=== PATIENT | male | born 1945 | race Caucasian/White ===

== ENCOUNTER 2018-07-05 08:11 | Inpatient (IN) ==
[2018-07-05] MEDS ORDERED: ATIVAN IV ONE (08:31)
[2018-07-05] MEDS ORDERED: LR 1,000 ML IV ONE (08:32)
--- NOTE | 2018-07-05 08:35 | EKG Report ---
Test Performed on : 07/05/2018 08:22:10 AM Test Reason : AMS Blood Pressure : / mmHG Vent. Rate : 130 BPM Atrial Rate : 131 BPM P-R Int : 000 ms QRS Dur : 078 ms QT Int : 308 ms P-R-T Axes : 000 053 046 degrees QTc Int : 453 ms Accelerated Junctional rhythm. ST & T wave abnormality, consider inferior ischemia Abnormal ECG When compared with ECG of 15-DEC-2017 14:02, Junctional rhythm. has replaced Sinus rhythm. Vent. rate has increased BY 59 BPM Non-specific change in ST segment in Inferior leads T wave inversion now evident in Inferior leads Nonspecific T wave abnormality now evident in Lateral leads Unconfirmed Result
--- NOTE | 2018-07-05 08:41 | PROVIDER DOCUMENTATION ---
[facility] Abuse/Overdose - General Chief Complaint: Seizure Stated Complaint: SEIZURE/ DT Time Seen by Provider: 07/05/18 08:16 Source: patient, family, EMS Allergies/Adverse Reactions: Allergies Allergy/AdvReac Type Severity Reaction Status Date / Time No Known Allergies Allergy Verified 07/05/18 09:18 Home Medications: Home Medication List Medication Instructions Recorded Confirmed Last Taken Type LISINOpril [Prinivil] 40 mg PO DAILY 01/28/17 07/05/18 05/10/17 21:00 History Metoprolol Succinate [Toprol Xl] 50 mg PO QAM 01/28/17 07/05/18 05/10/17 21:00 History Citalopram [Celexa] 20 mg PO DAILY 05/05/17 07/05/18 05/10/17 21:00 History Clopidogrel Bisulfate [Plavix] 1 tab PO DAILY 07/05/18 07/05/18 Unknown History Prednisone 1 tab PO DIRECTED 07/05/18 07/05/18 Unknown History Simvastatin 1 tab PO DAILY 07/05/18 07/05/18 Unknown History - History of Present Illness-Drug/Alcohol Nature of Presenting Problem: 74 YO MALE. PTT'S AND SON TELL ME PT HAD TONIC STIFFENING LASTING 1-2 MIN ABOUT 30 MIN AGO. LAST ETOH YESTERDAY MORING. HAS WHISKEY AVAILABLE . SAYS 50H ANIVERSERY TO BE CELEBRATED SAT AND SHE DID NOT WANT HIM DRUNK ON THAT DAY AND PT HAS STOPPED DRINKING. SHAKEY AND WEAK AND TREMORS YESTERDAY. MAY HAVE HAD SINGLE SEIZURE LIKE ACTIVITY 1 YR AGO. DRINKS DAILOY FOR MANY YEARS AND FEELS HE DOES NOT HAVE A PROBLEM. COUGHING 1-2 DAYS. PAST HX INCLUDES HTN. PAST , 30 YEARS AGO, SQAMOOUS CELL ON LEFT TONSIL W/ SURGICAL RESECTION LEFT MANDIBLE , RADIATION AND REQUIRED LEFT CAROTID STINTING , NO HX CVA OR IA. Psychiatric Complaints: reports: denies symptoms, confused. denies: agitated Associated Symptoms: reports: cough. denies: chest pain Any injuries associated with this episode of intoxication?: No Similar Symptoms Previously?: Yes (IWFE AND SON REPORT SINGE SEIZURE LIKE STIFFENING THIS MORING LESS THN 30M) - Substance Abuse Substance Use: reports: none/never Duration of Abuse? (years): 20 - Alcohol Abuse Type and amount of last drink?: WHISKEY LAST 36 HR AGO Usually drinks:: daily Other alcohols?: reports: N/A - Detox/Hospitalizations Currently enrolled in a Methadone Program?: No Review of Systems - Adult - REVIEW OF SYSTEMS - ADULT Constitutional: reports: see clarissa THAPA Eyes: reports: no symptoms reported Ears, Nose, Mouth & Throat: reports: no symptoms reported Cardiovascular: reports: no symptoms reported Respiratory: reports: cough. denies: wheezing Gastrointestinal: reports: poor appetite Genitourinary: reports: no symptoms reported Musculoskeletal: reports: no symptoms reported Integumentary: reports: no symptoms reported Neurological: reports: no symptoms reported Psychiatric: reports: no symptoms reported Endocrine: reports: no symptoms reported Hematologic/Lymphatic: reports: no symptoms reported Allergic/Immunologic: reports: no symptoms reported All Other Systems: Reviewed and Negative Past History - Adult - PAST MEDICAL HISTORY-ADULT Review of Records: reports: Old Records Reviewed Major Childhood Illnesses: reports: denies history Cardiovascular: reports: HTN. denies: CAD, IA Respiratory: reports: denies history Gastrointestinal: reports: denies history Obstetrical/Gynecological: reports: denies history Genitourinary: reports: denies history Musculoskeletal: reports: denies history Neurological: reports: TIA Endocrine/Immune: reports: denies history Other Conditions: reports: denies history - PRIOR SURGERIES/PROCEDURES Surgical/Procedure History: reports: reviewed, not pertinent - IMMUNIZATION STATUS Childhood Immunizations: See Nurse Assessment Flu Vaccine: See Nurse Assessment - FAMILY HISTORY Family History: reviewed, not pertinent - SOCIAL HISTORY Smoking: denies Substance Use: none/never Alcohol Use Frequency: every day Living Situation: family Physical Exam-General - PHYSICAL EXAM-ADULT Initial Vital Signs Reviewed: Yes - CONSTITUTIONAL General Appearance: mild distress, anxious - EYES Eyes: PERRL/EOMI, pink conjunctivae - HEAD, EARS, NOSE, MOUTH & THROAT HENMT: moist mucous membranes, other (LARGE SURGICAL DEFORMITY LEFT MANDIBLE AND UPPER NECK) - NECK Neck: other - RESPIRATORY Respiratory: rales (RALES AND RHONCHI R CHEST > LEFT) - CARDIOVASCULAR Cardiovascular: regular rate, rhythm, no edema, no gallop, no JVD - GASTROINTESTINAL (ABDOMEN) Abdominal Exam: non tender, soft, no organomegaly, other (SURGICAL SCARS LOWER ABD FROM HERNIA REPAIRS) - MUSCULOSKELETAL Extremity: normal range of motion, non-tender, normal gait - SKIN Integumentary: normal color, normal turgor, warm/dry - NEUROLOGIC Neurologic: sheep boner II-XII nml as tested, grossly normal, no motor/sensory deficits , abnormal cerebellar tests, other (TREMORS AND FIGITS, NO FOCAL WEAKNESS). negative: facial droop, focal weakness, motor weakness - PSYCHIATRIC Psych/Mental Status: normal mood/affect (ORIENTED TO PERSON AND PLACE BUT NOT TIME, NO SLURRED SPEECH.), other Progress - PLAN OF CARE/RESULTS Progress/Plan/Lab Results: Vital Signs - 8 hr 07/05/18 08:21 07/05/18 08:24 07/05/18 08:30 Temperature 97.4 F L Pulse Rate 125 H 135 H 128 H Respiratory Rate 23 17 19 Blood Pressure 128/89 O2 Sat by Pulse Oximetry 94 L 07/05/18 08:32 07/05/18 09:02 07/05/18 09:32 Temperature Pulse Rate 126 H 110 H 115 H Respiratory Rate 20 20 20 Blood Pressure 159/110 159/108 159/112 O2 Sat by Pulse Oximetry 94 L 96 96 07/05/18 10:02 07/05/18 10:32 Temperature Pulse Rate 109 H 105 H Respiratory Rate 18 18 Blood Pressure 157/110 146/103 O2 Sat by Pulse Oximetry 95 97 07/05/18 09:08 Influenza Screen - Final Nasopharyngeal Laboratory Results - last 24 hr 07/05/18 07/05/18 07/05/18 08:20 08:20 08:20 WBC RBC Hgb Hct MCV MCH MCHC RDW Std Deviation Plt Count MPV Immature Gran % (Auto) Neut % (Auto) Lymph % (Auto) Free[place] % (Auto) Eos % (Auto) Baso % (Auto) Immature Gran # (Auto) Neut # (Auto) Lymph # (Auto) Free[place] # (Auto) Eos # (Auto) Baso # (Auto) PT 12.9 INR 0.90 PTT (Actin FS) 27.6 Specimen Type Sample Site pH pCO2 pO2 HCO3 Base Excess Oxyhemoglobin ABG O2 Sat (Calculated) ABG O2 Saturation ABG Carboxyhemoglobin ABG Methemoglobin Toby Test A-a O2 Difference Total Hemoglobin Lactate Blood Gas Modality FiO2 % Sodium 126 L Potassium 4.0 Chloride 86 L Carbon Dioxide 19 L Anion Gap 21 BUN 11 Creatinine 1.1 Estimated GFR/1.73 m2 > 60 BUN/Creatinine Ratio 10 Glucose 153 H Calculated Osmolality 256 Calcium 10.1 Magnesium 1.6 Total Bilirubin 1.53 H AST 39 H ALT 13 Alkaline Phosphatase 117 Ammonia Creatine Kinase Creatine Kinase Index CK-MB (CK-2) Troponin T Total Protein 6.9 Albumin 4.1 Globulin 2.8 Albumin/Globulin Ratio 1.5 Plasma Lactate Plasma/Serum Ethyl Alc 07/05/18 07/05/18 07/05/18 08:20 08:20 08:20 WBC 11.33 H RBC 3.69 L Hgb 12.1 L Hct 35.1 L MCV 95.1 MCH 32.8 H MCHC 34.5 RDW Std Deviation 13.5 Plt Count 254 MPV 8.9 Immature Gran % (Auto) 0.4 Neut % (Auto) 73.0 Lymph % (Auto) 15.3 L Free[place] % (Auto) 11.3 H Eos % (Auto) 0.0 Baso % (Auto) 0.0 Immature Gran # (Auto) 0.04 Neut # (Auto) 8.28 H Lymph # (Auto) 1.73 Freeborn # (Auto) 1.28 H Eos # (Auto) 0.00 Baso # (Auto) 0.00 PT INR PTT (Actin FS) Specimen Type Sample Site pH pCO2 pO2 HCO3 Base Excess Oxyhemoglobin ABG O2 Sat (Calculated) ABG O2 Saturation ABG Carboxyhemoglobin ABG Methemoglobin Toby Test A-a O2 Difference Total Hemoglobin Lactate Blood Gas Modality FiO2 % Sodium Potassium Chloride Carbon Dioxide Anion Gap BUN Creatinine Estimated GFR/1.73 m2 BUN/Creatinine Ratio Glucose Calculated Osmolality Calcium Magnesium Total Bilirubin AST ALT Alkaline Phosphatase Ammonia Creatine Kinase Creatine Kinase Index CK-MB (CK-2) Troponin T < 0.010 Total Protein Albumin Globulin Albumin/Globulin Ratio Plasma Lactate Plasma/Serum Ethyl Alc 07/05/18 07/05/18 07/05/18 08:20 08:59 09:05 WBC RBC Hgb Hct MCV MCH MCHC RDW Std Deviation Plt Count MPV Immature Gran % (Auto) Neut % (Auto) Lymph % (Auto) Freeborn % (Auto) Eos % (Auto) Baso % (Auto) Immature Gran # (Auto) Neut # (Auto) Lymph # (Auto) Freeborn # (Auto) Eos # (Auto) Baso # (Auto) PT INR PTT (Actin FS) Specimen Type ARTERIAL Sample Site R RADIAL pH 7.44 pCO2 32 L pO2 79 HCO3 23.4 Base Excess -1.8 Oxyhemoglobin 93.5 L ABG O2 Sat (Calculated) 15.5 ABG O2 Saturation 97.1 ABG Carboxyhemoglobin 2.00 ABG Methemoglobin 1.7 H Toby Test YES A-a O2 Difference 31.0 Total Hemoglobin 11.7 Lactate 3.80 H Blood Gas Modality ROOM AIR FiO2 % 21.0 Sodium Potassium Chloride Carbon Dioxide Anion Gap BUN Creatinine Estimated GFR/1.73 m2 BUN/Creatinine Ratio Glucose Calculated Osmolality Calcium Magnesium Total Bilirubin AST ALT Alkaline Phosphatase Ammonia 21 Creatine Kinase 415 H Creatine Kinase Index 1.7 CK-MB (CK-2) 7.12 H Troponin T Total Protein Albumin Globulin Albumin/Globulin Ratio Plasma Lactate Plasma/Serum Ethyl Alc 07/05/18 09:05 WBC RBC Hgb Hct MCV MCH MCHC RDW Std Deviation Plt Count MPV Immature Gran % (Auto) Neut % (Auto) Lymph % (Auto) Free[place] % (Auto) Eos % (Auto) Baso % (Auto) Immature Gran # (Auto) Neut # (Auto) Lymph # (Auto) Free[place] # (Auto) Eos # (Auto) Baso # (Auto) PT INR PTT (Actin FS) Specimen Type Sample Site pH pCO2 pO2 HCO3 Base Excess Oxyhemoglobin ABG O2 Sat (Calculated) ABG O2 Saturation ABG Carboxyhemoglobin ABG Methemoglobin Toby Test A-a O2 Difference Total Hemoglobin Lactate Blood Gas Modality FiO2 % Sodium Potassium Chloride Carbon Dioxide Anion Gap BUN Creatinine Estimated GFR/1.73 m2 BUN/Creatinine Ratio Glucose Calculated Osmolality Calcium Magnesium Total Bilirubin AST ALT Alkaline Phosphatase Ammonia Creatine Kinase Creatine Kinase Index CK-MB (CK-2) Troponin T Total Protein Albumin Globulin Albumin/Globulin Ratio Plasma Lactate 3.9 H Plasma/Serum Ethyl Alc Orders Category Date Time Status Cardiac Monitoring DIRECTED Care 07/05/18 08:28 Active Finger Stick Blood Sugar (ED) DIRECTED Care 07/05/18 08:27 Active IV Insertion ORDERED Care 07/05/18 09:36 Completed Notify MD of + Sepsis Screen NOW Care 07/05/18 09:36 Active Notify Physician As Ordered Care 07/05/18 09:36 Active Saline Loc NOW Care 07/05/18 08:27 Active CHEST-PORTABLE [RAD] Stat Exams 07/05/18 08:[address] HEAD W/O CONTRAST [CT] Stat Exams 07/05/18 08:31 Ordered ABG [RESP] Routine Lab 07/05/18 08:59 Completed ALCOHOL BLOOD Stat Lab 07/05/18 08:20 Completed AMMONIA [CHEM] Stat Lab 07/05/18 09:05 Completed BLOOD CULTURE [BLDCUL] Stat Lab 07/05/18 09:05 Results CBC WITH DIFF [HEME] Stat Lab 07/05/18 08:20 Completed CK PROFILE [SP CHEM] Stat Lab 07/05/18 08:20 Completed COMPREHENSIVE METABOLIC PANEL [CHEM] Stat Lab 07/05/18 08:20 Completed INFLUENZA SCREEN A/B Stat Lab 07/05/18 09:08 Completed LACTATE, PLASMA [CHEM] Lab 07/05/18 12:05 Uncollected LACTATE, PLASMA [CHEM] Stat Lab 07/05/18 09:05 Completed MAGNESIUM [CHEM] Stat Lab 07/05/18 08:20 Completed PROTIME WITH INR [COAG] Stat Lab 07/05/18 08:20 Completed PTT [COAG] Stat Lab 07/05/18 08:20 Completed TROPONIN T Stat Lab 07/05/18 08:20 Completed URINALYSIS W/POSS RFLX CULT [URINALYSIS] Stat Lab 07/05/18 08:30 Uncollected URINE DRUG SCREEN Stat Lab 07/05/18 08:30 Uncollected 0.9% Sodium Chloride Inj [Ns] 1,000 ml Med 07/05/18 09:38 Discontinued IV 999 mls/hr CefTRIAXONE [Rocephin] 1 gm Med 07/05/18 10:25 Discontinued 0.9% Sodium Chloride Inj [Ns] 50 ml IV NOW Chlordiazepoxide [Librium] Med 07/05/18 11:03 Discontinued 10 mg PO NOW ONE Lactated Ringers Inj [Lr] 1,000 ml Med 07/05/18 08:32 Discontinued IV 999 mls/hr Lorazepam [Ativan] Med 07/05/18 08:31 Discontinued 2 mg IV NOW ONE Vancomycin 1 gm/Ns Med 07/05/18 11:02 Active 1 gm in 250 ml IV NOW Oxygen Device Stat Oth 07/05/18 09:36 Active EKG [EKG] Stat Ther 07/05/18 08:29 Draft Result Diagrams: 07/05/18 08:20 07/05/18 08:20 - REASSESSMENT Reassessment #1 Time Reassessed: 11:16 Status: improving (SEPSIS REASSESS: AWAKE , O X 3 , JUST VOIDED, WANTS COKE TO DRINK, HR 113, BP152/) - EKG 1 Time of EKG reading by physician:: 08:26 EKG Read and Signed by:: Sheldon Paz EKG Interpretation (*Must complete 3 of following elements*): Abnormal Rate: 130 [place]: normal QRS: normal MN Interval: prolonged ST Wave: non-specific ST changes Comments: SINUS TACH V ACCELERATED JUNCTIONAL SRYTHM, NONSPECFIC ST-T CHANGES - CONSULTS/PCP/HOSPITALIST Notification #1 *Consult/PCP/Hospitalist*: IBRAHIMA ACCEPTS TO ICU FOR DR HALL Time Discussed: 11:50 Consult Disposition: Admit (ADD VANC: ICU) Departure - Departure Date of Disposition Decision: 07/05/18 Time of Disposition Decision: 11:04 DIAGNOSIS: Chronic alcohol dependence, continuous, Seizure due to alcohol withdrawal, Pneumonia, Sepsis Disposition: ADMITTED INPATIENT 09 Certified Medical Emergency: Emergent Condition: Fair Referrals and Follow-Ups: Brandon Nieto MD [Primary Care Provider] - - Critical Care Note This patient required my direct & personal management of CC.: Yes Total Time (mins): 25 Critical Care Statement: This patient required my direct personal management to treat or rule out processes, the absence of which, could potentiallly result in sudden, clinically significant life or limb threatening deterioration. Attestation - Physician/ EVAN Attestation Patient care was provided by Advanced Practice Provider:: No The physician spent face to face time with patient:: Yes Advanced Practice Provider documentation review:: Supervising physician onsite and consulted in the evaluation and care of this patient. The physician did have a face to face encounter with the patient.
[2018-07-05 08:50] LABS: INR 0.9; PROTIME 12.9 Seconds (11.0-16.0)
[2018-07-05 08:51] LABS: PTT 27.6 Seconds (22.3-41.8)
[2018-07-05 09:00] LABS: ESTIMATED GFR > 60
[2018-07-05 09:08] LABS: ALLEN TEST YES; BE -1.8 mmoll (-3.0-3.0); BLOOD TYPE ARTERIAL; HCO3-(ACT) 23.4 mmoll (20.0-26.0); METHB 1.7 % (0.0-1.5); O2(CT) 15.5 mL/dL (15.0-23.0); O2HB 93.5 % (95.0-99.0); PCO2(98.6) 32 mmHg (35-45); PO2(98.6) 79 mmHg (60-100); SAMPLE BLOOD; SAO2 97.1 % (95.0-100.0); THB 11.7 g/dL (11.5-17.4); pH(98.6) 7.44 (7.35-7.45)
[2018-07-05 09:09] LABS: MODALITY ROOM AIR
[2018-07-05 09:10] LABS: AGAP 21; ALB/GLOB RATIO 1.5; ALBUMIN 4.1 g/dL (3.5-5.0); ALKALINE PHOSPHATASE 117 U/L (32-122); BUN 11 mg/dL (8-22); CALCIUM 10.1 mg/dL (8.8-10.2); CHLORIDE 86 mmol/L (98-107); COSMO 256; CREATININE 1.1 mg/dL (0.7-1.2); GLUCOSE 153 mg/dL (70-104); GOT 39 U/L (10-34); GPT 13 U/L (10-44); SODIUM 126 mmol/L (136-145); TCO2 19 mmol/L (25-35); TOTAL BILIRUBIN 1.53 mg/dL (0.20-1.00); TOTAL PROTEIN 6.9 g/dL (6.3-8.3)
[2018-07-05] MEDS ORDERED: NS 1,000 ML IV ONE (09:38)
[2018-07-05 09:47] LABS: HEMATOCRIT 35.1 % (42.0-52.0); HEMOGLOBIN 12.1 g/dL (14.0-18.0); IMM GRAN# 0.04 X1000 (0.0-0.04); IMM GRAN% 0.4 % (0.0-0.5); LYMPH# 1.73 X1000 (1.2-3.4); LYMPH% 15.3 % (20.5-51.1); MCH 32.8 PG (27-31); MCHC 34.5 g/dL (33-37); MCV 95.1 FL (81-99); MONO# 1.28 X1000 (0.11-0.59); MONO% 11.3 % (1.7-9.3); MPV 8.9 FL (7.4-10.4); NEUT# 8.28 X1000 (1.4-6.5); PLT 254 X1000 (130-400); RBC 3.69 XMIL (4.7-6.1); RDW 13.5 % (11.5-14.5); WBC 11.33 X1000 (4.8-10.8)
--- NOTE | 2018-07-05 10:14 | Diag Imaging Result Doc PS360 ---
EXAM: CHEST-PORTABLE 07/05/2018 HISTORY: SEIZURE TECHNIQUE: AP portable at 1004 COMMENT: The inspiration is suboptimal. There is a hiatal hernia. Compared to the previous study of 12/29/2017 there has been no significant change. IMPRESSION: No evidence of acute disease. Electronically signed by Robson Rush 07/05/2018 10:11 AM
[2018-07-05] MEDS ORDERED: ROCEPHIN 1 GM in NS 50 ML IV ONE (10:25)
[2018-07-05 10:32] LABS: CK INDEX 1.7 (0.0-2.5); CK-MB 7.12 ng/mL (0.0-5.0)
[2018-07-05] MEDS ORDERED: VANCOMYCIN 1 GM/NS 1 GM/250 ML IVPB IV ONE (11:02)
[2018-07-05] MEDS ORDERED: LIBRIUM PO ONE (11:03)
[2018-07-05] MEDS ORDERED: BENTYL PO PRN (11:15)
[2018-07-05] MEDS ORDERED: M.V.I.-12 10 ML, FOLIC ACID 1 MG, MAGNESIUM SULFATE 1 GM, THIAMINE 100 MG in NS 1,000 ML IV ONE (11:15)
[2018-07-05] MEDS ORDERED: ATIVAN IV PRN (11:19)
[2018-07-05] MEDS ORDERED: ZOFRAN IV PRN (11:24)
[2018-07-05] MEDS ORDERED: MAGNESIUM SULFATE 1 GM/D5W 1 GM/100 ML IVPB IV ONE (11:28)
[2018-07-05] MEDS ORDERED: NS 500 ML IV ONE (11:29)
[2018-07-05] MEDS ORDERED: VANCOMYCIN IV PER PHARMACY MISC SCH (11:30)
[2018-07-05 11:39] LABS: URINE SOURCE CLEAN CATCH
[2018-07-05 11:47] LABS: BILIRUBIN URINE NEGATIVE (NEGATIVE); BLOOD URINE TRACE (NEGATIVE); COLOR YELLOW; GLUCOSE URINE TRACE mg/dL (NEGATIVE); KETONE URINE TRACE mg/dL (NEGATIVE); LEUKOCYTES URINE NEGATIVE (NEGATIVE); NITRITE URINE NEGATIVE (NEGATIVE); PROTEIN URINE 70 mg/dL (NEGATIVE); SP GRAVITY URINE 1.017; TURBIDITY URINE CLEAR (CLEAR); UROBILINOGEN URINE NORMAL (NORMAL)
[2018-07-05 11:49] LABS: UR EPITHELIAL CELLS >10 /HPF (<10); URINE BACTERIA NEGATIVE /HPF; URINE RBC <10 /HPF (<10); URINE WBC <10 /HPF (<10)
[2018-07-05 11:56] LABS: UR AMPHETAMINES QUAL NONE DETECTED (NONE DETECT); UR BARBITUATES QUAL NONE DETECTED (NONE DETECT); UR BENZODIAZEPIN QUAL NONE DETECTED (NONE DETECT); UR CANNABINOIDS QUAL NONE DETECTED (NONE DETECT); UR COCAINE QUAL NONE DETECTED (NONE DETECT); UR METHADONE QUAL NONE DETECTED (NONE DETECT); UR OPIATES QUAL NONE DETECTED (NONE DETECT); UR OXYCODONE QUAL NONE DETECTED (NONE DETECT); UR PCP QUAL NONE DETECTED (NONE DETECT)
--- NOTE | 2018-07-05 11:59 | Diag Imaging Result Doc PS360 ---
CT HEAD W/O CONTRAST - 07/05/2018 INDICATION: 2ND SEIZURE COMPARISON: 03/28/2017 FINDINGS: There are stable areas of old encephalomalacia at the left frontal and occipital lobes. No intracranial mass or hemorrhage. The skull is intact. The sinuses are clear. There is stable chronic subluxation and erosion of the right temporomandibular joint presumably from chronic degeneration. IMPRESSION: No acute disease or change from prior. This exam was performed using automated exposure control, adjustment of mA or kV according to patient size, and/or use of iterative reconstruction technique Electronically signed by Cristiano Alston 07/05/2018 11:57 AM
[2018-07-05] MEDS: LIBRIUM PO SCH ×3 (12:17→22:57)
[2018-07-05] MEDS ORDERED: TOPROL XL PO ONE (12:19)
[2018-07-05] MEDS: NS 1,000 ML IV SCH ×2 (13:24→22:57)
--- NOTE | 2018-07-05 13:59 | HISTORY AND PHYSICAL ---
PRIMARY CARE PROVIDER: Dr. Nieto PRIMARY UROLOGIST: Dr. Flanagan CHIEF COMPLAINT: Seizure. HISTORY OF PRESENT ILLNESS: Mr. Carlos Argueta is a 73-year-old male with a medical history of alcohol abuse with drinking 5-6 bourbon and Coke's a day along with 2 -3 beers per day. He also has a medical history of hypertension, throat cancer approximately 30 years ago that required radical neck resection, carotid stent that occluded, and cerebral reverse flow. He has also had history of BPH with TURP and suprapubic catheter but that has since been removed. According to the family, around 2018, he was starting to have frequent falls and he quit his drinking for 3 weeks. He did well. He did not have any seizures. No withdrawal symptoms. Once he started drinking again, his drinking intake increased compared to prior before he quit. In preparation for his anniversary coming up, he was attempting to stop drinking. He last had an alcoholic beverage yesterday morning. He started having tremors last night and then this morning around 0630, had a full tonic clonic seizure with biting of the lip , full body contraction, and then post ictal he was unresponsive up until about 7:30 when the ambulance got there. That is when he became more responsive. Upon arrival to the ED, he had a dose of Ativan which improved his symptoms. He has elevation in his lactate and his white blood cell count along with tachycardia. Chest x-ray does not reveal any acute findings but there is some mild rhonchi with inspiration. The chest sounds tight, so he could have possibly aspirated, and so he will be started on a sepsis protocol. Given that he is having alcohol withdrawals and seizure this morning, will admit to the ICU and start him on a Librium taper and have p.r.n. Ativan as well, and will continue to treat for sepsis. PAST MEDICAL HISTORY: 1. BPH, had a TURP with suprapubic catheter in 2017, but the catheter has since been removed. 2. Stroke x2. 3. Hypertension. 4. Throat cancer 30 years ago that required radiation and radical neck resection. 5. 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 PAST SURGICAL HISTORY: 1. Multiple skin cancers removed. 2. TURP in May 2017. 3. Suprapubic catheter May 2017, has since been removed. 4. Thirty years ago in [place], [place], had radical neck resection along with left carotid stent that occluded and they required cerebral reverse flow procedure. 5. Umbilical hernia repair. SOCIAL HISTORY: Denies tobacco or even smokeless tobacco. He has had no history of it as well. He does admit to 5-6 bourbon and Coke's per day along with 2-3 beers per day, and has so for many years. Last alcoholic beverage was yesterday morning. Denies any illicit drug use. Lives at home with his , a dog and a cat. FAMILY HISTORY: Mother had diabetes and Alzheimer's. Father had myocardial infarction at the age of 72. ALLERGIES: No known drug allergies. HOME MEDICATIONS: 1. Celexa 20 mg p.o. daily. 2. Plavix 75 mg p.o. daily. 3. Lisinopril 40 mg p.o. daily. 4. Toprol XL 50 mg p.o. daily. 5. Prednisone 20 mg. 6. Simvastatin 20 mg p.o. daily. REVIEW OF SYSTEMS: A 14-point review of systems was complete and all were negative except for those mentioned above in HPI. Apparently, he has had a fall recently as he has ecchymosis in the left elbow, left eyebrow, right middle finger, and right flank area, but denies any pain. He also denies shortness of breath. He claims to have frontal headache that comes and goes. PHYSICAL EXAMINATION: VITAL SIGNS: Temperature 97.4, heart rate 112, respiratory rate 18, blood pressure 152/114. O2 saturation 93% on room air. Height 5 feet 8 inches tall, 180 pounds with a BMI of 27.4. GENERAL: Mr. Carlos Argueta is a 73-year-old male. He is in no acute distress, but he is mildly agitated. He answers questions appropriately. HEENT: Normocephalic. Post surgical area of the left jaw down the left neck. Pupils are equal, round and to light. Extraocular movements intact. Mucous membranes are dry and there is dried blood along the bottom of his lip from biting it. NECK: Trachea is midline. There is a large amount of area that has been surgically removed on the left side of his neck which has an indentation. CARDIOVASCULAR: S1 and S2, tachycardic rate and rhythm. No rubs, gallops, or murmurs. No lower extremity edema. +2 dorsalis and radial pulses. Negative JVD or carotid bruits. PULMONARY: Mild rhonchi noted. Sounds tight with inspiration. No accessory muscle use or work of breathing noted. Tolerating room air. GASTROINTESTINAL: Soft, nontender, nondistended. Positive bowel sounds x4. EXTREMITIES: Moves all extremities equally with full range of motion. NEUROLOGICAL: Alert and oriented x3, follows commands. Sensory is intact. SKIN: Warm, dry, intact. There is ecchymosis on the left elbow, the left eyebrow, the right middle finger, and the right flank area of his back. LABORATORY DATA: White blood cells 11,000, hemoglobin 12, hematocrit 35, platelet count 254. INR 0.9, PTT 27.6. ABGs on room air: pH 7.44, pCO2 32, pO2 79, bicarb 23, base excess -1.8, saturation 93%. carboxy hemoglobin 1.7. Lactate is 3.8. Sodium 126, potassium 4.0, chloride 86, bicarb 19, anion gap 21, BUN 11, creatinine 1.1, glucose 153, calcium 10.1, magnesium 1.6, bilirubin 1.53, AST 39, ALT 13, ammonia 21, CK 415, CK-MB 7.12, troponin less than 0.01, albumin 4.1, serum lactate 3.9. Urinalysis: 70 protein, trace ketones, trace blood, greater than 10 epithelial cells. Urine drug screen negative. Alcohol level negative. ASSESSMENT AND PLAN: 1. New onset seizure, likely withdrawal from alcohol abuse. Currently will be doing a Librium taper for alcohol withdrawal. Will have Ativan IV and p.r.n. Will do seizure precautions and monitor him in the ICU. 2. Alcohol abuse with withdrawal. Again, Librium taper. Will do banana bag, replace electrolytes and monitor closely. 3. Hypertension. Will continue his Toprol. He is also tachycardic so will continue the Toprol for today. 4. Possible sepsis. He has elevated lactate and white blood cell count, and he is tachycardic. This could be related to seizure and alcohol use. There is a possibility that he could have some aspiration pneumonia. Chest x-ray was clear, but he had some mild rhonchi with auscultation. He will be receiving IV fluid hydration, I will follow up on his cultures. I will start broad spectrum antibiotics depending his clinical course. Follow up repeat Chest xray tomorrow. 5. History of stroke x2. Also history with left carotid stent that is occluded and cerebral reverse flow. Will continue his Plavix. 6. History of throat cancer and radiation 30 years ago with radical neck resection. 7. Hyperlipidemia. Continue statins. Monitor bilirubin and liver enzymes. 8. Depression. Continue with Celexa. 9. Most recently had a right forehead melanoma removed around 1 month ago. The incision is dry, intact and almost healed. 10.Clinical volume depletion. Sodium is 126, chloride 86. Kidney function is intact but will continue with IV fluids. Dictated by RENE Garcia for Rudy Ramos MD cc: RENE Garcia MD Michael C. Donham, MD I agree with the components of history, physical, assessment and plan. A separate addendum has been dictated. [facility] THRO[facility] HOSPITALYun
--- NOTE | 2018-07-05 14:51 | HISTORY AND PHYSICAL ---
ADDENDUM: I agree with the components of history, physical, assessment and plan mentioned in nurse practitioner's note. I went and evaluated the patient at bedside in ICU. He appears restless. The patient's family is at bedside. Apparently, he has not had an alcoholic drink for more than 24 hours, and had developed tonic-clonic seizures lasting for about 1 or 2 minutes and postictal phase with drowsiness lasting about 30 minutes or so. By the time of my evaluation, he is restless. However, he answers most questions appropriately. The family could not confirm if he was taking prednisone or not, which was listed as 1 of his medications. PHYSICAL EXAMINATION: VITALS: Currently vitals reveal temperature of 97.4, pulse 110 per minute, blood pressure 120/80, saturating 100% on nasal cannula. GENERAL: Appears less restless and in mild distress. HEENT: Oral cavity is moist. He does have asymmetry of his face because of the previous radical neck dissection. LUNGS: Air entry bilaterally equal. No wheeze, rhonchi, crackles. HEART: S1, S2 normal. No murmur, rub, or gallop. ABDOMEN: Soft, nontender. EXTREMITIES: Lower extremities with no edema. NEUROLOGIC: He is alert and oriented x3. Answers most questions and follows all simple commands. He does have baseline facial asymmetry because of radical neck dissection. His coordination on [id number] testing is intact. He appears tremulous with bilateral upper extremity tremors and his reflexes are 2+. ASSESSMENT AND PLAN: 1. Delirium tremens with alcohol withdrawal seizures. Although he is alert at the moment, he does have periods of confusion and has had a witnessed seizure. Continue to monitor him inside ICU. He does not have signs of Wernicke's encephalopathy. In any case, I will give him high dose of 500 mg of thiamine today, and we will keep him on higher dose for 3 days, following which it will be reduced to 250 mg intravenous daily. Continue multivitamin and folic acid. I will start him on Librium and lorazepam sliding scale. 2. Other problems include essential hypertension, known history of cerebrovascular accident, for which I will continue his lisinopril, lower dose of metoprolol and Plavix. 3. Hyponatremia hypochloremia and low bicarbonate with lactic acidosis likely because of poor oral intake since last 3 days and seizure. Follow up with electrolytes and lactic acid tomorrow. 4. Suspected aspiration. He does have mild leukocytosis. At the time of my evaluation, he does not appear to have abnormality on lung examination. I will follow up with chest x-ray tomorrow and white blood count tomorrow, and will consider if he will need antibiotics or not. Plan of care discussed with the patient and family at bedside. All of their questions have been answered. cc: Rudy Ramos MD
[2018-07-05] MEDS: ATROVENT NEB INH SCH ×3 (16:04→23:38)
[2018-07-05] MEDS: XOPENEX NEB INH SCH ×3 (16:04→23:39)
[2018-07-05] MEDS: THIAMINE 500 MG in NS 50 ML IV SCH (16:49)
[2018-07-05] MEDS: ATIVAN IV PRN (18:35)
--- NOTE | 2018-07-05 21:46 | PROGRESS NOTE ---
DATE: 07/05/2018 I was informed by the ICU nursing team that the family was concerned about facial erythema and slight swelling of the his eyelids. However, the patient did not have any respiratory compromise. I spoke with the nursing team about the medications that he had received recently and looked at the MAR summary and noted that he was given intravenous ceftriaxone and he was getting intravenous fluids and multivitamins. He had eaten something that he had eaten in the past and there was no known food allergy. His cardiovascular status was stable. I just advised to observe. I was also informed about the fact that the patient has been getting weekly vitamin B12 shots which I have ordered. More than 30 minutes of critical care time was spent in taking care of this patient today. I have discussed the patient's care with the patient's at the bedside who is the surrogate decision maker as well as the daughter and all their questions have been answered. I will keep him on a clear liquid diet until the swelling improves and he does not have any more delirium. cc: Rudy Ramos MD
[2018-07-05] MEDS: ATARAX PO PRN (22:57)
[2018-07-06] MEDS: ATROVENT NEB INH SCH ×4 (04:07→21:06)
[2018-07-06] MEDS: XOPENEX NEB INH SCH ×4 (04:07→21:06)
[2018-07-06] MEDS: ATIVAN IV PRN (04:27)
[2018-07-06] MEDS: LIBRIUM PO SCH ×3 (04:27→19:59)
[2018-07-06 05:25] LABS: BASO# 0.01 X1000 (0.0-0.2); BASO% 0.1 % (0.0-0.8); EOS# 0.08 X1000 (0.0-0.7); EOS% 1.2 % (0.0-10.0); HEMATOCRIT 30.1 % (42.0-52.0); HEMOGLOBIN 9.9 g/dL (14.0-18.0); IMM GRAN# 0.02 X1000 (0.0-0.04); IMM GRAN% 0.3 % (0.0-0.5); LYMPH# 1.56 X1000 (1.2-3.4); LYMPH% 22.7 % (20.5-51.1); MCH 32.7 PG (27-31); MCHC 32.9 g/dL (33-37); MCV 99.3 FL (81-99); MONO% 11.7 % (1.7-9.3); MPV 8.8 FL (7.4-10.4); NEUT# 4.39 X1000 (1.4-6.5); PLT 181 X1000 (130-400); RBC 3.03 XMIL (4.7-6.1); RDW 13.8 % (11.5-14.5); WBC 6.86 X1000 (4.8-10.8)
[2018-07-06 05:31] LABS: INR 1.03; PROTIME 14.4 Seconds (11.0-16.0)
[2018-07-06 05:32] LABS: PTT 31.1 Seconds (22.3-41.8)
[2018-07-06 05:59] LABS: AGAP 9; ALB/GLOB RATIO 1.2; ALKALINE PHOSPHATASE 76 U/L (32-122); BUN 7 mg/dL (8-22); CALCIUM 7.6 mg/dL (8.8-10.2); CHLORIDE 101 mmol/L (98-107); COSMO 262; CREATININE 0.8 mg/dL (0.7-1.2); ESTIMATED GFR > 60; GLUCOSE 86 mg/dL (70-104); GOT 41 U/L (10-34); GPT 12 U/L (10-44); POTASSIUM 3.8 mmol/L (3.5-5.1); SODIUM 132 mmol/L (136-145); TCO2 22 mmol/L (25-35); TOTAL BILIRUBIN 0.92 mg/dL (0.20-1.00); TOTAL PROTEIN 5.6 g/dL (6.3-8.3)
--- NOTE | 2018-07-06 07:50 | EKG Report ---
Test Performed on : 07/06/2018 06:52:52 AM Test Reason : seizure Blood Pressure : / mmHG Vent. Rate : 069 BPM Atrial Rate : 069 BPM P-R Int : 140 ms QRS Dur : 064 ms QT Int : 416 ms P-R-T Axes : 056 065 050 degrees QTc Int : 445 ms Normal sinus rhythm. Normal ECG When compared with ECG of 05-JUL-2018 08:22, (Unconfirmed) Sinus rhythm. has replaced Junctional rhythm. Vent. rate has decreased BY [address] no longer depressed in Anterior leads T wave inversion no longer evident in Inferior leads Nonspecific T wave abnormality no longer evident in Lateral leads Confirmed by Ingrid SIDHU, Navin Thorpe ([id number]) on 07/06/2018 4:49:11 PM
--- NOTE | 2018-07-06 08:12 | Diag Imaging Result Doc PS360 ---
CHEST-PORTABLE - 07/06/2018 INDICATION: H/o aspiration. R/o consolidation COMPARISON: 07/05/2018 FINDINGS: Lung volumes are lower. There is worsening cardiomegaly and pulmonary vascular congestion. There are some hazy infiltrates in the lung bases bilaterally right greater than left. These are indeterminate. IMPRESSION: Worsening from prior. Electronically signed by Cristiano Alston 07/06/2018 8:10 AM
[2018-07-06] MEDS ORDERED: ROCEPHIN 1 GM in NS 50 ML IV SCH (09:00)
[2018-07-06] MEDS ORDERED: TOPROL XL PO SCH (09:00)
[2018-07-06] MEDS ORDERED: CYANOCOBALAMIN IM ONE (09:00)
[2018-07-06] MEDS: NS 1,000 ML IV SCH (09:13)
[2018-07-06] MEDS: CELEXA PO SCH (09:15)
[2018-07-06] MEDS: ZOCOR PO SCH (09:15)
[2018-07-06] MEDS: PLAVIX PO SCH (09:15)
[2018-07-06] MEDS: PRINIVIL PO SCH (09:16)
[2018-07-06] MEDS: TOPROL XL PO SCH (09:17)
[2018-07-06] MEDS: ZOSYN 3.375 GM in NS 50 ML IV SCH ×3 (09:35→20:00)
--- NOTE | 2018-07-06 09:35 | PROGRESS NOTE ---
DATE: 07/06/2018 SUBJECTIVE: Patient is resting comfortably in bed. He is having tremors, mostly the upper extremities. He is oriented times one to person. He believes he is in [facility]. He is following commands. He denies drinking too much alcohol, but the said that he drinks during the night and mostly during the morning as well. As per the , he stopped drinking on Tuesday and he had a seizure on Tuesday. Likely this is related to withdrawal seizures. He has been placed on Librium and Ativan p.r.n. I will continue with the banana bag, but I will stop the fluids right now because the x-ray showed some pulmonary vascular congestion and infiltrates at the bases, especially on the right side. All this situation has been explained to the . We discussed the resuscitation status and he will be full code. OBJECTIVE: Vital Signs: Temperature 98.1 degrees, pulse 62, respiratory rate 18, blood pressure 120/68, oxygen saturation 98 on room air. HEENT: Head normocephalic. No trauma. He has some facial asymmetry; the left side of the face as a postsurgical area at the level of the left jaw down to the left neck. His tongue is deviated to the left. PERRLA. There is some dry blood on his lower lip from biting it. Neck: Supple. No JVD. Central trachea. There is a large area that has been removed with surgery. Chest: Decreased breath sounds at the bases with some rhonchi and rales. Abdomen: Soft, nontender, nondistended. No hepatosplenomegaly. Extremities: No edema. No clubbing. No cyanosis. Neurological examination: The patient is alert. He is oriented x1. He knows he is in the hospital, but he believes he is at [facility]. When I told him that he is in [facility], he got mad at me and said that he is at [facility] again. He says that this is 2018. He follows commands. Left tongue deviation when he sticks out the tongue. I do not feel any specific weakness at the level of the lower extremities, and he is having upper extremity tremors. LABORATORY: WBC 6.8, hemoglobin 9.9, hematocrit 30.1, platelet 181. Sodium 132, potassium 3.8, chloride 101, bicarbonate 22. BUN 7, creatinine 0.8, glucose 86, calcium 7.6. AST 41, ALT 12, alkaline phosphatase 76, CK 766. Albumin 3. TSH 1.7. X-RAY: X-ray showed worsening cardiomegaly and pulmonary vascular congestion. Hazy infiltrates in the lung bases, mostly on the right side. ASSESSMENT AND PLAN: 1. New onset seizure, likely due to withdrawal from alcohol. As per the , this patient's last drink was on Tuesday, and he had a seizure on Tuesday morning. We will keep this patient on Librium and Ativan p.r.n. in the intensive care unit. We will monitor this patient closely. CT of the head did not show any acute disease. We will monitor. No more seizure activity during this hospitalization. 2. Alcohol abuse with withdrawal. Again, we will do Librium taper. I will continue with banana bags. We will replace electrolytes. 3. Hypertension. Continue with his Toprol. 4. Bilateral lower lung infiltrates likely due to aspiration pneumonia. I have placed this patient on antibiotics, Zosyn. We will continue with the same management. His blood pressure has been stable. I will stop the intravenous fluids because of pulmonary vascular congestion and lower infiltrates. I will wait for more recommendations by Pulmonary Department. 5. History of stroke times 2. Also, with left carotid stent that is occluded and CD-reverse flow. Continue with Plavix. 6. History of throat cancer and radiation 30 years ago with radical neck resection. 7. Hyperlipidemia. Continue with statins. 8. Depression. We will continue with Celexa. 9. History of forehead melanoma removed around 1 month ago. I do not see any infection or problems in that area. 10. Dehydration. He seems to be doing better. I will continue with liquid diet, but I will ask for a formal swallow evaluation. 11. Case has been discussed in detail with the , who is at the bedside. We discussed also the resuscitation status. He will be full code. Patient and seem to understand and they agree with the treatment. CRITICAL CARE TIME: 35 minutes. cc: Roosevelt Michel MD
[2018-07-06] MEDS: THIAMINE 500 MG in NS 50 ML IV SCH (13:31)
[2018-07-06] MEDS ORDERED: VASELINE TOP PRN (13:35)
[2018-07-06] MEDS ORDERED: M.V.I.-12 10 ML, FOLIC ACID 1 MG, MAGNESIUM SULFATE 1 GM, THIAMINE 100 MG in NS 1,000 ML IV SCH (14:00)
[2018-07-06] MEDS: ATARAX PO PRN (19:59)
--- NOTE | 2018-07-06 22:32 | CONSULTATION ---
DATE OF CONSULTATION: 07/06/2018 REQUESTING PROVIDER: Roosevelt Michel MD REASON FOR CONSULTATION: Aspiration pneumonia versus pulmonary edema. HISTORY OF PRESENT ILLNESS: This is a 73-year-old male with a medical history of alcohol abuse, benign prostatic hyperplasia, stroke, hypertension, tonsil cancer , melanoma, etc.. He presented to the ER yesterday morning with witnessed seizure activity. Patient is a daily heavy drinker and he last drank 36 hours before the seizure. Lab revealed elevated lactate and leukocytosis. The patient has been admitted to the ICU with new onset seizure secondary to alcohol withdrawals, possible sepsis and aspiration pneumonia. At the time of my examination, patient is lying in the bed comfortably with his family at the bedside. He is alert and oriented x3, but shows some confusion with the situation. He has chronic extremity tremor, chronic cough with scant white creamy phlegm and unintentional weight loss with poor appetite. He denies headache, fever, chill, nausea, chest pain or palpitation. PAST MEDICAL AND SURGICAL HISTORY: 1. Alcohol abuse. Drinks 5 to 6 bourbon and Coke a day, along with 2 to 3 beers per day. 2. Benign prostatic hyperplasia with urinary retention, status post TURP with a suprapubic catheter placement in 05/11/2017, but the catheter has been removed since then. 3. Stroke x2. 4. Hypertension. 5. 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 Last carotid doppler on 01/09/2018 showed complete occlusion of the left carotid system mild plaque disease in the right carotid system. 6. Frequent incidence of melanoma with multiple excisions. 7. History of frequent falls 8. Hiatal hernia 9. Umbilical hernia s/p hernia repair 10. Nose surgery 11. Skin graft SOCIAL HISTORY: Patient lives at home with his . He has a dog and a cat as pets. He denied tobacco or illicit drug use. Patient has been drinking 5 to 6 bourbon and 2-3 beers per day for many years. FAMILY HISTORY: Positive for diabetes mellitus, Alzheimer disease, and heart attack. ALLERGIES: No known drug allergies. REVIEW OF SYSTEMS: A 10 point review of systems was conducted and the pertinent is listed within the HPI, otherwise not contributory. PHYSICAL EXAMINATION: Vital Signs: Temperature 97.4 degrees, blood pressure 120/68, pulse 67, respiratory rate 24, oxygen saturation 98% at room air. General: Patient appears chronically ill. He has lower facial deformity. He is lying in bed in no acute distress. His family is at the bedside. He coughs occasionally with very mild rattling sound in the throat which per family is normal. HEENT: Lower facial deformity. Trachea midline. Mucosa pink and slightly dry. Respiratory: Chest expansion symmetrical; Mild rhonchi noted. No accessory muscle use or work of breathing noted. Cardiovascular: Regular rate and rhythm without murmur noted. Gastrointestinal : Soft, nontender, nondistended. Normoactive bowel sounds in all 4 quadrants. Extremities: No pedal edema. No clubbing. No cyanosis. dorsalis pedis pulses 2+ bilaterally. Neurologic: Alert and oriented x3 with some confusion with the situation. Follows commands. DIAGNOSTIC STUDIES: Chest x-ray reveals low lung volumes, worsening cardiomegaly, and pulmonary vascular congestion, some hazy infiltrates in the lung bases bilaterally with right greater than the left. LAB DATA: White blood cells 6.86, hemoglobin 9.9, hematocrit 40.1, platelet 181, 000. Sodium 132, potassium 3.8, chloride 101, carbon dioxide 22, BUN 7, creatinine 0.8, glucose 86. ASSESSMENT AND PLAN: This is a 73-year-old male with medical history of alcohol abuse, benign prostatic hyperplasia status post transurethral resection of the prostate (TURP), stroke x2, hypertension, tonsil cancer, melanoma with multiple excisions, frequent falls and hiatal hernia. He has been admitted to the ICU with new onset seizure secondary to alcohol withdrawals, possible sepsis and aspiration pneumonia. 1. New onset seizures with alcohol withdrawals. Agree to continue librium taper and electrolyte placement. 2. Aspiration pneumonia. Agree to continue antibiotic and bronchodilators; supplemental oxygen as needed; swallow evaluation pending; follow up with CXR; ABG if indicated. 3. Continue gastrointestinal (GI) and deep vein thrombosis (DVT) prophylaxis. Thank you for the courtesy of this consult. Dictated by RENE Yates for Frankie Larios MD cc: RENE Yates MD [facility]
[2018-07-07] MEDS: LIBRIUM PO SCH ×3 (01:41→17:49)
[2018-07-07] MEDS: ZOSYN 3.375 GM in NS 50 ML IV SCH ×4 (01:41→21:02)
[2018-07-07] MEDS: ATIVAN IV PRN ×6 (01:41→22:00)
[2018-07-07] MEDS: XOPENEX NEB INH SCH ×4 (03:19→22:38)
[2018-07-07] MEDS: ATROVENT NEB INH SCH ×4 (03:19→22:38)
[2018-07-07] MEDS: ATARAX PO PRN (04:30)
[2018-07-07 04:35] LABS: ALLEN TEST YES; BE -3.3 mmoll (-3.0-3.0); BLOOD TYPE ARTERIAL; HCO3-(ACT) 22.3 mmoll (20.0-26.0); METHB 1.5 % (0.0-1.5); O2HB 95.3 % (95.0-99.0); PCO2(98.6) 35 mmHg (35-45); PO2(98.6) 95 mmHg (60-100); SAMPLE BLOOD; SAO2 98.6 % (95.0-100.0); THB 9.6 g/dL (11.5-17.4); pH(98.6) 7.39 (7.35-7.45)
[2018-07-07 04:36] LABS: MODALITY ROOM AIR
[2018-07-07 04:47] LABS: BASO# 0.01 X1000 (0.0-0.2); BASO% 0.1 % (0.0-0.8); EOS# 0.17 X1000 (0.0-0.7); EOS% 2.1 % (0.0-10.0); HEMATOCRIT 29.3 % (42.0-52.0); HEMOGLOBIN 9.5 g/dL (14.0-18.0); IMM GRAN# 0.02 X1000 (0.0-0.04); IMM GRAN% 0.3 % (0.0-0.5); LYMPH# 1.32 X1000 (1.2-3.4); LYMPH% 16.7 % (20.5-51.1); MCHC 32.4 g/dL (33-37); MCV 101.7 FL (81-99); MONO# 0.72 X1000 (0.11-0.59); MONO% 9.1 % (1.7-9.3); MPV 8.8 FL (7.4-10.4); NEUT# 5.67 X1000 (1.4-6.5); NEUT% 71.7 % (42.2-75.2); PLT 159 X1000 (130-400); RBC 2.88 XMIL (4.7-6.1); WBC 7.91 X1000 (4.8-10.8)
[2018-07-07 05:05] LABS: AGAP 11; ALBUMIN 2.7 g/dL (3.5-5.0); ALKALINE PHOSPHATASE 64 U/L (32-122); BUN 7 mg/dL (8-22); CALCIUM 7.5 mg/dL (8.8-10.2); CHLORIDE 103 mmol/L (98-107); COSMO 264; CREATININE 0.8 mg/dL (0.7-1.2); ESTIMATED GFR > 60; GLUCOSE 91 mg/dL (70-104); GOT 34 U/L (10-34); GPT 10 U/L (10-44); POTASSIUM 3.4 mmol/L (3.5-5.1); SODIUM 133 mmol/L (136-145); TCO2 19 mmol/L (25-35); TOTAL BILIRUBIN 0.73 mg/dL (0.20-1.00); TOTAL PROTEIN 5.3 g/dL (6.3-8.3)
[2018-07-07 05:14] LABS: CK PROFILE 267 U/L (24-204)
[2018-07-07 05:23] LABS: MAGNESIUM 1.7 mg/dL (1.5-2.7)
[2018-07-07 05:30] LABS: CK INDEX 1.8 (0.0-2.5); CK-MB 4.74 ng/mL (0.0-5.0)
[2018-07-07 05:54] LABS: FERRITIN 187 ng/mL (30-400)
--- NOTE | 2018-07-07 06:37 | Diag Imaging Result Doc PS360 ---
EXAM: CHEST-PORTABLE HISTORY: dyspnea TECHNIQUE: Portable chest single view COMPARISON: 07/06/2018 FINDINGS: Poor inspiratory effort. There is vascular distention. Heart is mildly prominent. Slight decrease in the right basilar infiltrate. IMPRESSION: Slight interval improvement. Electronically signed by Aleksandar Martinez 07/07/2018 6:35 AM
[2018-07-07] MEDS ORDERED: KLOR-CON PO ONE (07:01)
[2018-07-07] MEDS ORDERED: LASIX IV ONE (07:21)
[2018-07-07] MEDS: CELEXA PO SCH (08:17)
[2018-07-07] MEDS: PRINIVIL PO SCH (08:17)
[2018-07-07] MEDS: TOPROL XL PO SCH (08:17)
[2018-07-07] MEDS: ZOCOR PO SCH (08:17)
[2018-07-07] MEDS: PLAVIX PO SCH (08:17)
[2018-07-07] MEDS: CENTRUM SILVER PO SCH (08:17)
--- NOTE | 2018-07-07 09:07 | PROGRESS NOTE ---
DATE: 07/07/2018 SUBJECTIVE: This patient seems to be a little bit more alert then yesterday. He is still having some tremors, mostly upper extremities. He has bilateral lung crackles. He will receive a dose of Lasix today. Yesterday, I asked for a swallow evaluation, and it looks like this patient is tolerating pureed diet, but I believe he has been choking on and off. I will ask for physical therapy and occupational therapy today. OBJECTIVE: Vital Signs: Temperature 97.6, pulse 77, respiratory rate 28, blood pressure 155/80. Oxygen saturation 95% on 2 L of nasal cannula. HEENT: Head normocephalic. No trauma. He has some facial asymmetry. The left side of the face looks like it is due to postsurgical treatment at the level of the left jaw down to the left neck. His tongue is deviated to the left. PERRLA. Neck supple. No JVD. Central trachea. There is a large area that has been removed surgically on the left side. Chest: Decreased breath sounds mostly at the bases with crackles bilaterally. No wheezing. Coarse breath sounds. Abdomen soft, nontender, nondistended. No hepatosplenomegaly. Extremities: No edema. No clubbing. No cyanosis. Neurologic: The patient is alert. He is oriented x2 today. He is not oriented to time. He knows now that he is in [facility]. He is following commands. Left tongue deviation. I do not see any specific weakness at the level of the lower extremities, and he has upper extremity tremors. LABORATORY: WBC 7.9, hemoglobin 9.5, hematocrit 29.3, platelets 159,000. Sodium 133, potassium 3.4, chloride 103, bicarbonate 19. BUN 7, creatinine 0.8, glucose 91. Calcium 7.5. CK decreased from 766 to 267. Albumin 2.7. ASSESSMENT AND PLAN: 1. New onset of seizure likely due to alcohol withdrawal. As per the patient's , his last drink was on Tuesday, and he had a seizure on Tuesday morning. We will keep this patient on a Librium schedule and Ativan as needed in the Intensive Care Unit. We will monitor this patient closely. CT of the head did not show any acute abnormality. Will monitor. No more seizure activity during this hospitalization. 2. Alcohol abuse with withdrawal symptoms. Again, we will do Librium taper, and I have placed this patient on multivitamins and thiamine. We have been replacing his electrolytes, especially potassium, which is low today again. 3. Hypertension. Continue with his Toprol. 4. Bilateral lower lung infiltrates likely due to aspiration pneumonia. Continue with Zosyn. WBC normalized compared with admission. X-ray showed slight interval improvement of the infiltrates. We will continue to monitor. 5. History of stroke x2. Also, he has a left carotid stent that is occluded. Continue with Plavix. 6. History of throat cancer and radiation 30 years ago with radical neck resection, aware. 7. Hyperlipidemia. Continue with statins. 8. Depression. Continue with Celexa. 9. History of forehead melanoma, removed around 1 month ago. I do not see any infection or problems in that area. 10. Dehydration, resolved. 11. Acute kidney injury, resolved. 12. Slightly elevated bilirubin and AST, resolved. 13. Physical deconditioning. I will ask physical therapy and occupational therapy to take care of this patient. CRITICAL CARE TIME: 35 minutes. cc: Roosevelt Michel MD
[2018-07-07] MEDS ORDERED: CLINIMIX E 4.25%-5% SOLUTION 1,000 ML IV SCH (12:00)
[2018-07-07] MEDS: THIAMINE 500 MG in NS 50 ML IV SCH (13:11)
--- NOTE | 2018-07-07 15:12 | Diag Imaging Result Doc PS360 ---
EXAM: CHEST-PORTABLE 07/07/2018 HISTORY: NGT placement TECHNIQUE: AP portable at 1451 COMMENT: There is an NG tube with its tip below the diaphragm presumably in the stomach. There is gas in the colon. The small bowel is not distended. IMPRESSION: NG tube in the stomach. Electronically signed by Robson Rush 07/07/2018 3:10 PM
[2018-07-07] MEDS: LIBRIUM NG SCH (18:29)
[2018-07-07] MEDS ORDERED: PHENOBARBITAL IV ONE (22:14)
[2018-07-08] MEDS: ATIVAN IV PRN ×5 (01:07→11:28)
[2018-07-08] MEDS: LIBRIUM NG SCH ×2 (02:17→09:30)
[2018-07-08] MEDS: ZOSYN 3.375 GM in NS 50 ML IV SCH ×4 (02:18→21:03)
[2018-07-08] MEDS: XOPENEX NEB INH SCH ×5 (03:37→23:00)
[2018-07-08] MEDS: ATROVENT NEB INH SCH ×5 (03:37→23:00)
[2018-07-08] MEDS ORDERED: LABETALOL IV ONE (04:09)
[2018-07-08 04:38] LABS: ALLEN TEST YES; BE 3.4 mmoll (-3.0-3.0); BLOOD TYPE ARTERIAL; HCO3-(ACT) 27.6 mmoll (20.0-26.0); O2HB 97.1 % (95.0-99.0); PCO2(98.6) 35 mmHg (35-45); PO2(98.6) 169 mmHg (60-100); SAMPLE BLOOD; SAO2 100.1 % (95.0-100.0); THB 10.7 g/dL (11.5-17.4); pH(98.6) 7.49 (7.35-7.45)
[2018-07-08 04:46] LABS: MODALITY CANNULA
[2018-07-08 04:59] LABS: BASO# 0.01 X1000 (0.0-0.2); BASO% 0.1 % (0.0-0.8); EOS# 0.19 X1000 (0.0-0.7); EOS% 2.3 % (0.0-10.0); HEMATOCRIT 31.4 % (42.0-52.0); HEMOGLOBIN 10.3 g/dL (14.0-18.0); LYMPH# 1.32 X1000 (1.2-3.4); MCH 32.7 PG (27-31); MCHC 32.8 g/dL (33-37); MCV 99.7 FL (81-99); MONO# 0.77 X1000 (0.11-0.59); MONO% 9.3 % (1.7-9.3); MPV 8.5 FL (7.4-10.4); NEUT# 5.98 X1000 (1.4-6.5); NEUT% 72.3 % (42.2-75.2); PLT 200 X1000 (130-400); RBC 3.15 XMIL (4.7-6.1); RDW 13.8 % (11.5-14.5); WBC 8.27 X1000 (4.8-10.8)
[2018-07-08 05:29] LABS: AGAP 10; BUN 7 mg/dL (8-22); CALCIUM 8.9 mg/dL (8.8-10.2); CHLORIDE 100 mmol/L (98-107); COSMO 270; CREATININE 0.9 mg/dL (0.7-1.2); ESTIMATED GFR > 60; GLUCOSE 107 mg/dL (70-104); MAGNESIUM 1.5 mg/dL (1.5-2.7); PHOSPHORUS 3.3 mg/dL (2.7-4.5); POTASSIUM 3.2 mmol/L (3.5-5.1); PREALBUMIN 12.9 mg/dL (20-40); SODIUM 136 mmol/L (136-145); TCO2 26 mmol/L (25-35)
[2018-07-08] MEDS ORDERED: KLOR-CON PO ONE (07:36)
[2018-07-08] MEDS ORDERED: POTASSIUM CHLORIDE 20% LIQUID PO ONE (07:39)
[2018-07-08] MEDS ORDERED: LASIX IV ONE (07:46)
[2018-07-08] MEDS: CENTRUM SILVER PO SCH (08:12)
[2018-07-08] MEDS: ZOCOR PO SCH (08:12)
[2018-07-08] MEDS: TOPROL XL PO SCH (08:12)
[2018-07-08] MEDS: PLAVIX PO SCH (08:12)
[2018-07-08] MEDS: PRINIVIL PO SCH (08:12)
[2018-07-08] MEDS: CELEXA PO SCH (08:12)
--- NOTE | 2018-07-08 08:25 | Diag Imaging Result Doc PS360 ---
EXAM: CHEST-PORTABLE 07/08/2018 HISTORY: SOB TECHNIQUE: AP portable at 0811 COMMENT: There is hazy opacity in both lung bases particularly the right lower lobe. There is an NG tube the tip of which is apparently at the cardia of the stomach. Compared to 07/07/2018 the opacification of the right base is worse. IMPRESSION: Pulmonary edema and/or pneumonia, worse since 07/07/2018. Electronically signed by Robson Rush 07/08/2018 8:23 AM
[2018-07-08] MEDS: LEVAQUIN 500 MG/D5W 500 MG/100 ML IVPB IV SCH (09:31)
[2018-07-08] MEDS ORDERED: MAG-OX MISC PRN (11:00)
--- NOTE | 2018-07-08 11:10 | PROGRESS NOTE ---
DATE: 07/08/2018 SUBJECTIVE: The patient has been agitated during the night and he has been getting multiple doses of treatment, Ativan. I believe he also received a dose of phenobarbital. At this moment this patient is sleepy but arousable. He is not oriented. He moves all 4 extremities spontaneously. Family members are at the beside. Yesterday swallow evaluation reevaluated this patient again because he was choking. We decided to put this patient n.p.o. He did not pass the swallow. An NG tube has been placed for nutrition which is working fine. We will continue with the same management. Pulmonary Department is onboard. OBJECTIVE: Vital Signs: Temperature 98.4, pulse 78, respiratory rate 26, blood pressure 128/107, and oxygen saturation 100% on 2 L nasal cannula. HEENT: Head normocephalic. No trauma. He has some facial asymmetry on the left side and it looks like postsurgical treatment at the level of the left jaw down to the left neck. His tongue is deviated to the left. PERRLA. Neck: Supple. No JVD. Central trachea. There is a large area that has been removed surgically on the left side. Chest: Decreased breath sounds with bilateral crackles, expiratory wheezing, and rhonchi at the bases. Abdomen: Soft, nontender, and nondistended. No hepatosplenomegaly. Extremities: No edema, no clubbing, and no cyanosis. Neurological: The patient is sleepy but arousable. He is able to move all 4 extremities. He is not oriented at this moment. LABORATORY DATA: WBC 8.2, hemoglobin 10.3, hematocrit 31.4, and platelets 200. Sodium 136, potassium 3.2, chloride 100, bicarbonate 26, BUN 7, creatinine 0.9, glucose 107, calcium 8.9, and magnesium 1.5. ASSESSMENT AND PLAN: 1. New onset of seizure likely due to alcohol withdrawal, as per the patient's his last drink was on Tuesday, and he had a seizure on Tuesday morning. We will keep this patient on Librium scheduled and Ativan as needed in the Intensive Care Unit. He has been agitated during the night and he has been getting treatment with Ativan and I do believe with phenobarbital as well. We will monitor this patient closely. CT scan of the head did not show any acute abnormality. 2. Alcohol abuse with withdrawal symptoms. Again, we will continue taking care of this patient in the Intensive Care Unit. He is getting multivitamins and thiamine. We have been replacing his electrolytes, especially his potassium which is low today again. Continue with the same management for now. 3. Hypertension. Continue with his Toprol. 4. Bilateral lower lung infiltrates due to aspiration pneumonia. Continue with Zosyn. WBC is normal compared with admission. X-ray is pending today but he has bilateral crackles and rhonchi at the bases. 5. History of a stroke times 2. Also, he has a left carotid stent that it is occluded. Continue with Plavix. 6. History of throat cancer and radiation 30 years ago with radical neck resection. Aware. 7. Hyperlipidemia. Continue with the same management. 8. Depression. Continue with Celexa. 9. History of forehead melanoma, removed around 1 month ago. I do not see any infection in that area. 10. Dehydration, resolved. 11. Acute kidney injury, resolved. 12. Slightly elevated liver function tests, resolved. 13. Physical deconditioning. Physical Therapy and Occupational Therapy are on board but this patient is sleepy today so probably he will not get physical therapy. 14. Dysphagia. This patient is not able to swallow and he has been choking. A swallow evaluation has already been performed on this patient and he has been placed n.p.o. and we placed an NG tube and he is getting nutrition through that. CRITICAL CARE TIME: Forty minutes. cc: Roosevelt Michel MD
[2018-07-08] MEDS ORDERED: MAGNESIUM SULFATE 4 GM/S.W.I. 4 GM/100 ML IVPB IV ONE (11:38)
[2018-07-08] MEDS ORDERED: MAGNESIUM SULFATE 4 GM/S.W.I. 4 GM/100 ML IVPB IV PRN (11:43)
[2018-07-08] MEDS: THIAMINE 500 MG in NS 50 ML IV SCH (13:03)
[2018-07-08] MEDS: ATIVAN 20 MG in NS 190 ML IV SCH ×2 (13:45→21:03)
[2018-07-08] MEDS ORDERED: POTASSIUM CHLORIDE 20% LIQUID PO SCH (18:00)
[2018-07-09] MEDS: ZOSYN 3.375 GM in NS 50 ML IV SCH ×4 (02:30→20:05)
[2018-07-09] MEDS: ATROVENT NEB INH SCH ×6 (03:17→23:48)
[2018-07-09] MEDS: XOPENEX NEB INH SCH ×6 (03:18→23:48)
[2018-07-09 05:00] LABS: ALLEN TEST YES; BE 7.1 mmoll (-3.0-3.0); BLOOD TYPE ARTERIAL; HCO3-(ACT) 30.4 mmoll (20.0-26.0); METHB 1.3 % (0.0-1.5); O2(CT) 15.6 mL/dL (15.0-23.0); O2HB 95.7 % (95.0-99.0); PCO2(98.6) 46 mmHg (35-45); PO2(98.6) 97 mmHg (60-100); SAMPLE BLOOD; SAO2 99.4 % (95.0-100.0); THB 11.5 g/dL (11.5-17.4); pH(98.6) 7.45 (7.35-7.45)
[2018-07-09 05:03] LABS: MODALITY ROOM AIR
[2018-07-09 05:25] LABS: AGAP 12; BUN 11 mg/dL (8-22); CALCIUM 9.3 mg/dL (8.8-10.2); CHLORIDE 97 mmol/L (98-107); CK PROFILE 111 U/L (24-204); COSMO 277; ESTIMATED GFR > 60; GLUCOSE 171 mg/dL (70-104); POTASSIUM 3.3 mmol/L (3.5-5.1); SODIUM 137 mmol/L (136-145); TCO2 28 mmol/L (25-35)
[2018-07-09 05:30] LABS: BASO# 0.01 X1000 (0.0-0.2); BASO% 0.1 % (0.0-0.8); EOS# 0.34 X1000 (0.0-0.7); EOS% 3.6 % (0.0-10.0); HEMATOCRIT 34.3 % (42.0-52.0); IMM GRAN# 0.03 X1000 (0.0-0.04); IMM GRAN% 0.3 % (0.0-0.5); LYMPH# 1.56 X1000 (1.2-3.4); LYMPH% 16.6 % (20.5-51.1); MCHC 32.1 g/dL (33-37); MCV 99.7 FL (81-99); MONO# 0.89 X1000 (0.11-0.59); MONO% 9.4 % (1.7-9.3); MPV 8.6 FL (7.4-10.4); NEUT# 6.59 X1000 (1.4-6.5); PLT 214 X1000 (130-400); RBC 3.44 XMIL (4.7-6.1); RDW 13.7 % (11.5-14.5); WBC 9.42 X1000 (4.8-10.8)
[2018-07-09] MEDS: POTASSIUM CHLORIDE 20% LIQUID MISC PRN (06:37)
[2018-07-09] MEDS ORDERED: POTASSIUM CHLORIDE 20% LIQUID PO ONE (07:10)
--- NOTE | 2018-07-09 07:44 | Diag Imaging Result Doc PS360 ---
EXAM: CHEST-PORTABLE 07/09/2018 HISTORY: dyspnea TECHNIQUE: AP portable at 0533 COMMENT: Compared to 07/08/2018 there is improvement in opacification of the right base possibly due to diminished pleural effusion and/or pulmonary edema. The left lung is also slightly improved. IMPRESSION: Improved pulmonary edema and pleural effusion on the right. Electronically signed by Robson Rush 07/09/2018 7:41 AM
[2018-07-09] MEDS: ZOCOR PO SCH (08:12)
[2018-07-09] MEDS: CELEXA PO SCH (08:12)
[2018-07-09] MEDS: PRINIVIL PO SCH (08:12)
[2018-07-09] MEDS: LEVAQUIN 500 MG/D5W 500 MG/100 ML IVPB IV SCH (08:12)
[2018-07-09] MEDS: PLAVIX PO SCH (08:12)
[2018-07-09] MEDS: CENTRUM SILVER PO SCH (08:12)
[2018-07-09] MEDS: TOPROL XL PO SCH (08:12)
--- NOTE | 2018-07-09 09:10 | PROGRESS NOTE ---
DATE: 07/09/2018 SUBJECTIVE: Patient is resting comfortably in bed. He is still tachypneic but compared with yesterday, he looks better. He has been slightly agitated during the night. We have placed this patient on an Ativan drip. He is getting nutrition through the NG tube and he has been tolerating that. X-ray looks better. OBJECTIVE: Vital Signs: Temperature 98.5 degrees, pulse 93, respiratory rate 26, blood pressure 181/112, oxygen saturation 99 on room air. HEENT: Head normocephalic. No trauma. He has some facial asymmetry on the left side and it looks like a postsurgical treatment at the level of the left jaw down to the left neck. His tongue is deviated to the left. PERRLA. Neck: Supple. No JVD. Central trachea. There is a large area that has been removed surgically on the left side. Chest: Decreased breath sounds with bilateral crackles, faint expiratory wheezing and rhonchi at the bases. Abdomen: Soft, nontender, nondistended. No hepatosplenomegaly. Extremities: No edema. No clubbing. No cyanosis. Neurological Examination: This patient is sleepy. He is able to move all 4 extremities. At this moment, he is not oriented. He is following commands on and off. He is on an Ativan drip. Laboratory Data: WBC 9.4, hemoglobin 11, hematocrit 34.3, platelets 214,000. Sodium 137, potassium 3.3, chloride 97, bicarbonate 28, BUN 11, creatinine 1, glucose 171, calcium 9.3. ASSESSMENT AND PLAN: 1. New onset of seizure, likely due to alcohol withdrawal. As per the patient's , his last drink was on Tuesday and he had a seizure on Tuesday morning. We will keep this patient on the Ativan drip in the intensive care unit. He looks better. He is less agitated. We will monitor this patient closely. CT of the head did not show any acute abnormality. 2. Alcohol abuse with withdrawal symptoms. Again, we will continue with the same management. Continue with multivitamins including thiamine and continue replacing the electrolytes, especially potassium which is a little bit low today again. 3. Hypertension. Continue with his home medication. He has been on lisinopril. He has been on metoprolol succinate. I will add hydralazine as needed if the blood pressure is above 180. 4. Bilateral lower lung infiltrates due to aspiration pneumonia. Continue with the same management. WBC is normal. He is not having fever. X-ray looks better compared with the previous ones. 5. History of strokes x2. Also, he has a left carotid stent that is occluded. Continue with Plavix. 6. History of throat cancer and radiation 30 years ago with radical neck resection. Aware. 7. Hyperlipidemia. Continue with the same management. 8. Depression. Continue with Celexa. 9. 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 I do not see any infection or problems in that area. 10. Dehydration, resolved. 11. Acute kidney injury, resolved. 12. Likely elevated liver function tests, resolved. 13. Elevated CK level, resolved. 14. Dysphagia. This patient has not been able to swallow and this is why he probably has aspiration pneumonia. Swallow evaluation already saw the patient. He has been placed nothing per oral and he is getting nutrition through a nasogastric tube. We will need to do again a swallow evaluation once this patient is stronger. 15. Physical deconditioning. I already requested physical therapy and occupational therapy for this patient but since he is on an Ativan drip, I do not think they are going to be able to perform any therapy properly. 16. Hypokalemia. I will replace the potassium. CRITICAL CARE TIME: 35 minutes. cc: Roosevelt Michel MD
[2018-07-09] MEDS ORDERED: BLISTEX MEDICATED BERRY LIP BALM TOP PRN (09:57)
[2018-07-09] MEDS: ATIVAN IV PRN ×4 (10:09→20:09)
[2018-07-09] MEDS: APRESOLINE IV PRN ×2 (10:38→20:33)
[2018-07-09] MEDS: TYLENOL PO PRN (11:29)
[2018-07-09] MEDS: THIAMINE 500 MG in NS 50 ML IV SCH (13:22)
--- NOTE | 2018-07-09 17:32 | Diag Imaging Result Doc PS360 ---
EXAM: CHEST-PORTABLE 07/09/2018 HISTORY: Respiratory Distress TECHNIQUE: AP portable at 1723 COMMENT: There is a large hiatal hernia. There is increased opacity in the right costophrenic angle and right upper lobe compared to the previous study of 07/09/2018. The left lung is unchanged in appearance. IMPRESSION: Right upper and lower lobe pneumonia. Electronically signed by Robson Rush 07/09/2018 5:30 PM
[2018-07-09 17:34] LABS: ALLEN TEST YES; BE 7.1 mmoll (-3.0-3.0); BLOOD TYPE ARTERIAL; HCO3-(ACT) 30.4 mmoll (20.0-26.0); O2(CT) 15.1 mL/dL (15.0-23.0); O2HB 92.1 % (95.0-99.0); PO2(98.6) 66 mmHg (60-100); SAMPLE BLOOD; SAO2 94.8 % (95.0-100.0); THB 11.6 g/dL (11.5-17.4); pH(98.6) 7.41 (7.35-7.45)
[2018-07-09 17:35] LABS: MODALITY ROOM AIR; PCO2(98.6) 52 mmHg (35-45)
[2018-07-09] MEDS: ATIVAN 20 MG in NS 190 ML IV SCH (21:36)
[2018-07-10] MEDS: ZOSYN 3.375 GM in NS 50 ML IV SCH ×4 (03:28→20:30)
[2018-07-10] MEDS: ATROVENT NEB INH SCH ×6 (03:47→23:14)
[2018-07-10] MEDS: XOPENEX NEB INH SCH ×6 (03:47→23:14)
[2018-07-10 05:01] LABS: AGAP 13; ALB/GLOB RATIO 1.1; ALBUMIN 3.3 g/dL (3.5-5.0); ALKALINE PHOSPHATASE 67 U/L (32-122); BUN 21 mg/dL (8-22); CALCIUM 9.5 mg/dL (8.8-10.2); CHLORIDE 101 mmol/L (98-107); COSMO 289; CREATININE 1.1 mg/dL (0.7-1.2); ESTIMATED GFR > 60; GLUCOSE 176 mg/dL (70-104); GOT 22 U/L (10-34); GPT 7 U/L (10-44); MAGNESIUM 1.8 mg/dL (1.5-2.7); POTASSIUM 3.9 mmol/L (3.5-5.1); SODIUM 141 mmol/L (136-145); TCO2 27 mmol/L (25-35); TOTAL BILIRUBIN 0.59 mg/dL (0.20-1.00); TOTAL PROTEIN 6.4 g/dL (6.3-8.3)
[2018-07-10 05:16] LABS: ALLEN TEST YES; BE 6.3 mmoll (-3.0-3.0); BLOOD TYPE ARTERIAL; HCO3-(ACT) 29.8 mmoll (20.0-26.0); METHB 1.4 % (0.0-1.5); O2HB 96.6 % (95.0-99.0); PCO2(98.6) 42 mmHg (35-45); PO2(98.6) 141 mmHg (60-100); SAMPLE BLOOD; SAO2 99.5 % (95.0-100.0); THB 12.3 g/dL (11.5-17.4); pH(98.6) 7.47 (7.35-7.45)
[2018-07-10 05:20] LABS: MODALITY BI PAP
[2018-07-10 06:03] LABS: BASO# 0.07 X1000 (0.0-0.2); BASO% 0.5 % (0.0-0.8); EOS# 0.16 X1000 (0.0-0.7); EOS% 1.2 % (0.0-10.0); HEMATOCRIT 37.7 % (42.0-52.0); HEMOGLOBIN 11.7 g/dL (14.0-18.0); IMM GRAN# 0.03 X1000 (0.0-0.04); IMM GRAN% 0.2 % (0.0-0.5); LYMPH# 1.76 X1000 (1.2-3.4); LYMPH% 13.7 % (20.5-51.1); MCH 33.1 PG (27-31); MCV 106.5 FL (81-99); MONO# 2.22 X1000 (0.11-0.59); MONO% 17.2 % (1.7-9.3); MPV 8.6 FL (7.4-10.4); NEUT# 8.63 X1000 (1.4-6.5); NEUT% 67.2 % (42.2-75.2); PLT 213 X1000 (130-400); RBC 3.54 XMIL (4.7-6.1); RDW 14.6 % (11.5-14.5); WBC 12.87 X1000 (4.8-10.8)
[2018-07-10 06:33] LABS: BANDS 2 % (0-1); EOS 2 % (1-10); LYMPHS 14 % (21-51); MONO 10 % (1-9); SEGS 72 % (42-75)
[2018-07-10 06:34] LABS: HYPOCHROM 1+
--- NOTE | 2018-07-10 07:32 | Diag Imaging Result Doc PS360 ---
EXAM: CHEST-PORTABLE INDICATION: dyspnea TECHNIQUE: One view COMPARISON: 07/09/2018 FINDINGS: NG tube is in stable position. Right costophrenic angle and right upper lobe mild opacity is unchanged. No new consolidation is identified. Cardiac silhouette is stable. IMPRESSION: Stable chest. Electronically signed by Hardeep Peacock 07/10/2018 7:30 AM
[2018-07-10] MEDS ORDERED: LIBRIUM NG PRN (08:07)
[2018-07-10] MEDS: PRINIVIL PO SCH (08:17)
[2018-07-10] MEDS: PLAVIX PO SCH (08:18)
[2018-07-10] MEDS: CENTRUM SILVER PO SCH (08:18)
[2018-07-10] MEDS: ZOCOR PO SCH (08:18)
[2018-07-10] MEDS: CELEXA PO SCH (08:18)
[2018-07-10] MEDS: TOPROL XL PO SCH (08:18)
[2018-07-10] MEDS: LEVAQUIN 500 MG/D5W 500 MG/100 ML IVPB IV SCH (08:19)
[2018-07-10] MEDS: ATIVAN IV PRN ×4 (09:30→16:22)
[2018-07-10] MEDS: LIBRIUM NG SCH ×3 (10:13→21:23)
--- NOTE | 2018-07-10 11:02 | PROGRESS NOTE ---
DATE: 07/10/2018 SUBJECTIVE: He is still very lethargic, but he still gets very agitated. OBJECTIVE: Vital Signs: Blood pressure 127/82, heart rate 83, respiratory rate 18, temperature 97 degrees, 100% on 4 L. Cardiovascular: Regular rate and rhythm. Pulmonary: Bilateral breath sounds with rhonchi throughout. Gastrointestinal: Soft, nontender, nondistended. Bowel sounds are positive. LABORATORY DATA: White count 12, hemoglobin and hematocrit 11 and 37, platelets 213,000. pH 7.4, pCO2 42, PROBLEM LIST: 1. Seizure, likely due to alcohol withdrawal. He had been on Ativan. I think it was discontinued per Pulmonary. I have just switched him to Librium because he is still agitated. We will taper daily and follow. 2. Alcohol withdrawal. As described above, will continue thiamine and folate. 3. Hypertension. That is actually improved. I think he has had an elevated level because of associated withdrawal. 4. Presumed aspiration pneumonia. I believe he is on antibiotics, which are Levaquin and Zosyn, very good coverage. White count has jumped up a little bit and his infiltrates are stable. 5. History of cerebrovascular accident. He has had a carotid stent that is occluded. 6. Dysphagia. We are waiting for him to improve somewhat mental status rodriguez before we pursue speech therapy. 7. Depression. He is on Celexa. DISPOSITION: He is still very touch and go, per se, so we will continue to monitor closely. I will add some Mucomyst just for expectoration. Disposition is hopefully stable currently. Will continue to monitor in the ICU. cc: Barrington Hahn MD MTDD
[2018-07-10] MEDS: THIAMINE 500 MG in NS 50 ML IV SCH (13:14)
[2018-07-10] MEDS: APRESOLINE IV PRN (16:17)
[2018-07-10] MEDS ORDERED: HALDOL IV PRN (16:44)
[2018-07-10] MEDS ORDERED: ATIVAN IV PRN (16:44)
[2018-07-10] MEDS: LABETALOL IV PRN (17:08)
[2018-07-10] MEDS: MUCOMYST 10% INH SCH (19:45)
[2018-07-11] MEDS: ZOSYN 3.375 GM in NS 50 ML IV SCH ×4 (02:50→19:54)
[2018-07-11] MEDS: ATROVENT NEB INH SCH ×6 (03:32→23:12)
[2018-07-11] MEDS: XOPENEX NEB INH SCH ×6 (03:33→23:12)
[2018-07-11 04:33] LABS: ALLEN TEST YES; BE 8.6 mmoll (-3.0-3.0); BLOOD TYPE ARTERIAL; HCO3-(ACT) 31.6 mmoll (20.0-26.0); METHB 1.4 % (0.0-1.5); O2HB 96.3 % (95.0-99.0); PCO2(98.6) 50 mmHg (35-45); PO2(98.6) 136 mmHg (60-100); SAMPLE BLOOD; SAO2 99.3 % (95.0-100.0); THB 10.9 g/dL (11.5-17.4); pH(98.6) 7.44 (7.35-7.45)
[2018-07-11 04:35] LABS: MODALITY BI PAP
[2018-07-11] MEDS: LIBRIUM NG SCH ×4 (04:44→21:54)
[2018-07-11 04:51] LABS: BASO# 0.01 X1000 (0.0-0.2); BASO% 0.1 % (0.0-0.8); EOS# 0.34 X1000 (0.0-0.7); EOS% 3.2 % (0.0-10.0); HEMATOCRIT 32.6 % (42.0-52.0); HEMOGLOBIN 10.2 g/dL (14.0-18.0); IMM GRAN# 0.03 X1000 (0.0-0.04); IMM GRAN% 0.3 % (0.0-0.5); LYMPH# 1.45 X1000 (1.2-3.4); LYMPH% 13.5 % (20.5-51.1); MCH 32.5 PG (27-31); MCHC 31.3 g/dL (33-37); MCV 103.8 FL (81-99); MONO# 1.59 X1000 (0.11-0.59); MONO% 14.8 % (1.7-9.3); MPV 8.8 FL (7.4-10.4); NEUT% 68.1 % (42.2-75.2); PLT 260 X1000 (130-400); RBC 3.14 XMIL (4.7-6.1); RDW 14.3 % (11.5-14.5); WBC 10.72 X1000 (4.8-10.8)
[2018-07-11 05:43] LABS: AGAP 11; ALB/GLOB RATIO 0.8; ALBUMIN 2.9 g/dL (3.5-5.0); ALKALINE PHOSPHATASE 59 U/L (32-122); BUN 24 mg/dL (8-22); CALCIUM 9.4 mg/dL (8.8-10.2); CHLORIDE 103 mmol/L (98-107); COSMO 293; CREATININE 0.9 mg/dL (0.7-1.2); ESTIMATED GFR > 60; GLUCOSE 163 mg/dL (70-104); GOT 16 U/L (10-34); GPT 8 U/L (10-44); MAGNESIUM 1.9 mg/dL (1.5-2.7); POTASSIUM 3.5 mmol/L (3.5-5.1); SODIUM 143 mmol/L (136-145); TCO2 29 mmol/L (25-35); TOTAL BILIRUBIN 0.48 mg/dL (0.20-1.00); TOTAL PROTEIN 6.4 g/dL (6.3-8.3)
--- NOTE | 2018-07-11 07:57 | PROGRESS NOTE ---
DATE: 07/11/2018 SUBJECTIVE: Patient is resting comfortably in bed. He is lethargic, tachypneic. Blood pressure and heart rate is better. He was on Ativan drip, which has been stopped and now, he is on Librium through the NG tube. He did not receive any Ativan during the night, per the nurse. We will continue to monitor. We will continue with tube feeding. OBJECTIVE: Vital Signs: Temperature 98 degrees, pulse 99, respiratory rate 25, blood pressure 164/98. Oxygen saturation 100% on the BiPAP machine. HEENT: Head normocephalic. No trauma. PERRLA. He has some facial asymmetry on the left side and it looks like a postsurgical treatment at the level of the left jaw down to the left neck. Neck: Supple. No JVD. Central trachea. There is a large area that has been removed surgically on the left side. Chest: Decreased breath sounds bilaterally, mostly at the bases with some crepitus. Abdomen: Soft, nontender, and nondistended. No hepatosplenomegaly. Extremities: No edema. No clubbing. No cyanosis. Neurological: This patient is sleepy, somewhat lethargic. He opens his eyes with voice stimulation, and he moves with pain stimulation. He is not following commands, and he is not talking at this moment. LABORATORY: WBC 10.7, hemoglobin 10.2, hematocrit 32.6, platelet 260,000. Sodium 143, potassium 3.5, chloride 103, bicarbonate 29, BUN 24, creatinine 0.9, glucose 163, calcium 9.4, magnesium 1.9, albumin 2.9. ASSESSMENT AND PLAN: 1. New onset of seizures, likely due to alcohol withdrawal. As per the patient's , his last drink was on last Tuesday, and he had a seizure the next day in the morning. He was placed on Ativan drip, which has been stopped. Since this patient is still agitated, he has been placed on Librium through the NG tube. Will continue monitoring this patient. CT of the head without any acute abnormality. 2. Alcohol abuse with withdraw symptoms. Again, we will continue with the same management. Continue with multivitamins including thiamine. Will continue replacing the electrolytes as needed. 3. Hypertension. Continue home medication. 4. Bilateral lower lung infiltrate due to aspiration pneumonia. Continue with the same management. WBC increased a little bit yesterday, but today is normal. He has been on antibiotics including Zosyn and levofloxacin. 5. History of a stroke x2. He also has a left carotid stent that is occluded. Continue with Plavix. 6. History of throat cancer and radiation 30 years ago with radical neck resection, aware. 7. Hyperlipidemia. Continue with same management. 8. Depression. Continue with Celexa. 9. 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 I do not see any infections or problems in that area. 10. Dehydration, resolved. 11. Acute kidney injury, resolved. 12. Elevated liver function tests, resolved. 13. Elevated CK level, resolved. 14. Dysphagia. Continue with the nasogastric tube and feeding. Will re-evaluate this once this patient is better. 15. Physical deconditioning. I already requested physical therapy and occupational therapy for this patient. 16. Acute hypoxemic and hypercapnic respiratory failure. Continue with the BiPAP machine. Pulmonary Department on board. CRITICAL CARE TIME: 35 minutes. cc: Roosevelt Michel MD
[2018-07-11] MEDS: MUCOMYST 10% INH SCH ×2 (08:03→19:48)
[2018-07-11] MEDS: PRINIVIL PO SCH (09:19)
[2018-07-11] MEDS: LEVAQUIN 500 MG/D5W 500 MG/100 ML IVPB IV SCH (09:19)
[2018-07-11] MEDS: ZOCOR PO SCH (09:20)
[2018-07-11] MEDS: PLAVIX PO SCH (09:20)
[2018-07-11] MEDS: CELEXA PO SCH (09:20)
[2018-07-11] MEDS: TOPROL XL PO SCH (09:20)
[2018-07-11] MEDS: CENTRUM SILVER PO SCH (09:20)
[2018-07-11] MEDS: APRESOLINE IV PRN (12:16)
[2018-07-11] MEDS: THIAMINE 500 MG in NS 50 ML IV SCH (14:53)
[2018-07-12] MEDS: ZOSYN 3.375 GM in NS 50 ML IV SCH ×4 (02:47→19:39)
[2018-07-12] MEDS: XOPENEX NEB INH SCH ×6 (03:49→23:19)
[2018-07-12] MEDS: ATROVENT NEB INH SCH ×6 (03:49→23:19)
[2018-07-12 04:41] LABS: ALLEN TEST YES; BE 8.9 mmoll (-3.0-3.0); BLOOD TYPE ARTERIAL; HCO3-(ACT) 31.9 mmoll (20.0-26.0); METHB 0.8 % (0.0-1.5); O2(CT) 16.9 mL/dL (15.0-23.0); O2HB 96.8 % (95.0-99.0); PO2(98.6) 109 mmHg (60-100); SAMPLE BLOOD; SAO2 100.4 % (95.0-100.0); THB 12.3 g/dL (11.5-17.4); pH(98.6) 7.44 (7.35-7.45)
[2018-07-12 04:44] LABS: MODALITY BI PAP; PCO2(98.6) 51 mmHg (35-45)
[2018-07-12 04:53] LABS: BASO# 0.02 X1000 (0.0-0.2); BASO% 0.2 % (0.0-0.8); EOS# 0.39 X1000 (0.0-0.7); EOS% 3.3 % (0.0-10.0); HEMATOCRIT 33.5 % (42.0-52.0); HEMOGLOBIN 10.4 g/dL (14.0-18.0); IMM GRAN# 0.05 X1000 (0.0-0.04); IMM GRAN% 0.4 % (0.0-0.5); LYMPH# 1.41 X1000 (1.2-3.4); LYMPH% 12.1 % (20.5-51.1); MCH 32.6 PG (27-31); MPV 8.8 FL (7.4-10.4); NEUT# 7.72 X1000 (1.4-6.5); PLT 320 X1000 (130-400); RBC 3.19 XMIL (4.7-6.1); RDW 14.4 % (11.5-14.5); WBC 11.69 X1000 (4.8-10.8)
[2018-07-12 05:27] LABS: AGAP 12; BUN 21 mg/dL (8-22); CALCIUM 9.7 mg/dL (8.8-10.2); CHLORIDE 106 mmol/L (98-107); COSMO 294; CREATININE 0.8 mg/dL (0.7-1.2); ESTIMATED GFR > 60; GLUCOSE 109 mg/dL (70-104); POTASSIUM 3.5 mmol/L (3.5-5.1); SODIUM 146 mmol/L (136-145); TCO2 28 mmol/L (25-35)
[2018-07-12] MEDS: LIBRIUM NG SCH ×4 (05:53→22:27)
--- NOTE | 2018-07-12 07:29 | Diag Imaging Result Doc PS360 ---
EXAM: CHEST-PORTABLE HISTORY: dyspnea TECHNIQUE: Portable chest single view COMPARISON: 07/10/2018 FINDINGS: The inspiratory effort is somewhat the prior study. A nasogastric tube overlies the esophagus and stomach. No cardiomegaly. Mild central vascular prominence. There is atelectasis in the left base and possibly and underlying infiltrate. These findings are more prominent than on the prior study. IMPRESSION: Mild interval worsening. Electronically signed by Aleksandar Martinez 07/12/2018 7:27 AM
[2018-07-12] MEDS: MUCOMYST 10% INH SCH ×2 (07:40→18:57)
--- NOTE | 2018-07-12 08:09 | PROGRESS NOTE ---
DATE: 07/12/2018 SUBJECTIVE: The patient is resting comfortably in bed. He is still really somnolent, but he is waking up a little bit with my voice and pain stimulation He is following commands for me, but I cannot understand what he says. He is using a BiPAP machine still. X-ray looks a little bit worse compared with yesterday. I will decrease the dose of Librium, and I will increase the amount of water since the sodium is a little bit elevated. OBJECTIVE: Vital Signs: Temperature 97.8, pulse 83, respiratory rate 22, blood pressure 181/98, oxygen saturation 100% on the monitor on the BiPAP machine. HEENT: Head normocephalic. No trauma. PERRLA. He has some facial asymmetry on the left side due to postsurgical treatment at the level of the left jaw down to the left neck. Neck: Supple. No JVD. Central trachea. There is a large area that has been removed surgically on the left side. Chest: Decreased coarse breath sounds bilaterally with some crepitus at the bases. Abdomen: Soft, nontender, nondistended. No hepatosplenomegaly. Extremities: No edema. No clubbing. No cyanosis. Neurological examination: The patient is really sleepy, but arousable with pain stimulation. He is following commands. He is able to move his lower extremities and squeeze my hand, but I cannot understand what he says. LABORATORY: WBC 11.6, hemoglobin 10.4, hematocrit 35.5, platelet 220. Sodium 146, potassium 3.5, chloride 106, bicarbonate 28. BUN 21, creatinine 0.8, glucose 109, calcium 9.7, magnesium 2. ASSESSMENT AND PLAN: 1. New onset of seizure likely due to alcohol withdrawal. As per the patient's , his last drink was last week on Tuesday, and he had a seizure the next day in the morning. He was placed on Ativan drip, which has been stopped, and now he is on Librium since he has been still agitated. I have decreased the Librium dose from 50 to 25 q. 6 hours, and I will decrease that on a daily basis. We will continue to monitor. 2. Alcohol abuse with withdrawal symptoms again. We are going to continue with the Librium, but I will decrease the dose. Continue with multivitamins including thiamine. Will continue replacing his electrolytes as needed. 3. Hypertension. Continue home medication and as-needed treatment. 4. Bilateral lower lobe infiltrates due to aspiration. Continue with the same management. White blood count increased a little bit from 10.7 to 11.6, but no fever has been reported. Continue with the same management. 5. History of stroke times two. He also has a left carotid stent that has been occluded. Continue with Plavix. 6. History of throat cancer and radiation 30 years ago with radical neck resection. Aware. 7. Hyperlipidemia. Continue with the same management. 8. Depression. Continue with Celexa. 9. History of forehead melanoma. I think that was removed more than 1 month ago. I do not see any infection or problems in that area. 10. Dehydration, resolved. 11. Mild hypernatremia. We will increase the amount of free water. 12. Elevated liver function tests, resolved. 13. Elevated CK level, resolved. 14. Dysphagia. Continue with the nasogastric tube and feeding. We will re-evaluate these once this patient is better. 15. Acute hypoxemic and hypercapnic respiratory failure. Continue with the BiPAP machine. Pulmonary Department on board. 16. Physical deconditioning. We will do physical therapy and occupational therapy once this patient is more awake. cc: Roosevelt Michel MD
[2018-07-12] MEDS: CELEXA PO SCH (08:27)
[2018-07-12] MEDS: ZOCOR PO SCH (08:27)
[2018-07-12] MEDS: PRINIVIL PO SCH (08:27)
[2018-07-12] MEDS: PLAVIX PO SCH (08:27)
[2018-07-12] MEDS: TOPROL XL PO SCH (08:27)
[2018-07-12] MEDS: CENTRUM SILVER PO SCH (08:27)
[2018-07-12] MEDS: LEVAQUIN 500 MG/D5W 500 MG/100 ML IVPB IV SCH (08:27)
[2018-07-12] MEDS: LABETALOL IV PRN (12:28)
[2018-07-12] MEDS: THIAMINE 500 MG in NS 50 ML IV SCH (14:37)
[2018-07-12] MEDS ORDERED: CALMOSEPTINE OINTMENT TOP PRN (18:40)
[2018-07-12] MEDS: APRESOLINE IV PRN (20:46)
[2018-07-13] MEDS: ZOSYN 3.375 GM in NS 50 ML IV SCH ×4 (02:21→21:36)
[2018-07-13] MEDS: ATROVENT NEB INH SCH ×6 (03:07→23:37)
[2018-07-13] MEDS: XOPENEX NEB INH SCH ×6 (03:07→23:38)
[2018-07-13 05:04] LABS: ALLEN TEST YES; BE 7.4 mmoll (-3.0-3.0); BLOOD TYPE ARTERIAL; HCO3-(ACT) 30.7 mmoll (20.0-26.0); METHB 0.4 % (0.0-1.5); O2(CT) 15.6 mL/dL (15.0-23.0); O2HB 97.9 % (95.0-99.0); PCO2(98.6) 40 mmHg (35-45); PO2(98.6) 129 mmHg (60-100); SAMPLE BLOOD; SAO2 100.4 % (95.0-100.0); THB 11.2 g/dL (11.5-17.4)
[2018-07-13 05:07] LABS: MODALITY BI PAP
[2018-07-13 05:46] LABS: BASO# 0.02 X1000 (0.0-0.2); BASO% 0.2 % (0.0-0.8); EOS# 0.29 X1000 (0.0-0.7); EOS% 2.7 % (0.0-10.0); HEMOGLOBIN 10.4 g/dL (14.0-18.0); IMM GRAN# 0.06 X1000 (0.0-0.04); IMM GRAN% 0.6 % (0.0-0.5); LYMPH# 1.36 X1000 (1.2-3.4); LYMPH% 12.7 % (20.5-51.1); MCH 32.1 PG (27-31); MCHC 30.6 g/dL (33-37); MCV 104.9 FL (81-99); MONO# 1.71 X1000 (0.11-0.59); MPV 8.7 FL (7.4-10.4); NEUT# 7.26 X1000 (1.4-6.5); NEUT% 67.8 % (42.2-75.2); PLT 354 X1000 (130-400); RBC 3.24 XMIL (4.7-6.1); RDW 14.3 % (11.5-14.5)
[2018-07-13] MEDS: LIBRIUM NG SCH (05:51)
[2018-07-13 06:12] LABS: AGAP 11; ALB/GLOB RATIO 1.2; ALBUMIN 3.2 g/dL (3.5-5.0); ALKALINE PHOSPHATASE 67 U/L (32-122); BUN 19 mg/dL (8-22); CALCIUM 9.7 mg/dL (8.8-10.2); CHLORIDE 107 mmol/L (98-107); COSMO 298; CREATININE 0.8 mg/dL (0.7-1.2); ESTIMATED GFR > 60; GLUCOSE 156 mg/dL (70-104); GOT 29 U/L (10-34); GPT 16 U/L (10-44); MAGNESIUM 1.8 mg/dL (1.5-2.7); POTASSIUM 3.7 mmol/L (3.5-5.1); SODIUM 147 mmol/L (136-145); TCO2 29 mmol/L (25-35); TOTAL BILIRUBIN 0.35 mg/dL (0.20-1.00); TOTAL PROTEIN 5.8 g/dL (6.3-8.3)
--- NOTE | 2018-07-13 07:37 | Diag Imaging Result Doc PS360 ---
EXAM: CHEST-PORTABLE INDICATION: dyspnea TECHNIQUE: One view COMPARISON: 07/12/2018 FINDINGS: The NG tube is in stable position. The patient is rotated toward the right. Atelectasis and/or infiltrate at the left lung base has improved. Mildly prominent central vasculature are stable. No new consolidation is identified. Cardiac silhouette is stable. IMPRESSION: Improvement of the mild atelectasis and/or infiltrate at the left lung base. Electronically signed by Hardeep Peacock 07/13/2018 7:35 AM
[2018-07-13] MEDS: MUCOMYST 10% INH SCH ×2 (08:05→19:37)
--- NOTE | 2018-07-13 08:16 | PROGRESS NOTE ---
DATE: 07/13/2018 SUBJECTIVE: I feel that now we can start cycling the BiPAP machine with either a Ventimask or a nonrebreathing mask. We will ask Respiratory Therapy to evaluate that possibility. Right now, on the monitor, he is saturating 100% on the BiPAP machine. His sodium is still a little bit elevated at 147 even though we increased the amount of water yesterday I think this is enough water for this patient, but probably we can increase it a little bit more. His BUN and creatinine have been stable. I will decrease the dose of the Librium from 25 q.6 hours to 10 q.6 hours and I will decrease it even more slowly on a daily basis. OBJECTIVE: Vital Signs: Temperature 97.2 degrees, pulse 92 respiratory rate 17, blood pressure 153/96, oxygen saturation 100% on the BiPAP machine. HEENT: Head normocephalic. No trauma. PERRLA. He has some facial asymmetry on the left side due to postsurgical treatment, mostly at the level of the jaw down to the left neck. Neck: Supple. JVD. Central trachea. There is a large area that has been removed surgically on the left side. Chest: Decreased breath sounds at the bases with mild crepitus at the bases as well. Abdomen: Soft, nontender, nondistended. No hepatosplenomegaly. Extremities: No edema. No clubbing. No cyanosis. Neurological: The patient is sleepy, but arousable. He is following commands. He is able to answer some simple questions, but it is hard to understand what he says. LABORATORY DATA: WBC 10.7, hemoglobin 10.4, hematocrit 34, platelets 354. Sodium 147, potassium 3.7, chloride 107, bicarbonate 29, BUN 19, creatinine 0.8, glucose 156, calcium 9.7, albumin 3.2. ASSESSMENT AND PLAN: 1. New onset of seizure, likely due to alcohol withdrawal. As per the patient's , his last drink was last Tuesday, I believe on 07/04/2018, and then he had a seizure the next day in the morning. He was placed on Ativan drip, which has been stopped already, and now he is on Librium since he has been agitated. I will decrease the dose of Librium from 25 q.6 hours to 10 q.6 hours. I will try to decrease these on a daily basis and will see how he does. 2. Alcohol abuse with withdrawal symptoms. Again, continue with the same management as per number 1. 3. Hypertension. Continue with home medication and as-needed treatment. 4. Bilateral lower lobe infiltrates due to aspiration. We will continue with the same management. X-ray today looks much better compared with the previous ones. White blood cell count normal. 5. History of a stroke x2. Also, he has a left carotid stent that has been occluded. Will continue with Plavix. 6. History of throat cancer with radiation 30 years ago, with radical neck resection. Aware. 7. Hyperlipidemia. Continue with the same management. 8. Depression. Continue with Celexa. 9. History of forehead melanoma. I think that was removed more than 1 month ago. I do not see any infection or problems in that area. 10. Dehydration, resolved. 11. Mild hypernatremia. Continue with the free water. 12. Elevated liver function tests, resolved. 13. Elevated CK, resolved. 14. Dysphagia. Continue with nasogastric tube and feeding. We will re-evaluate these again once this patient is more awake and better. 15. Acute hypoxemic and hypercapnic respiratory failure. Continue cycling the BiPAP machine with either Ventimask or non-rebreathing mask. We will notify this to Respiratory Therapy. 16. Physical deconditioning. We will start physical therapy and occupational therapy once this patient is out of restraints. CRITICAL CARE TIME: 35 minutes. cc: Roosevelt Michel MD
[2018-07-13] MEDS: PLAVIX PO SCH (10:05)
[2018-07-13] MEDS: CELEXA PO SCH (10:05)
[2018-07-13] MEDS: TOPROL XL PO SCH (10:05)
[2018-07-13] MEDS: LEVAQUIN 500 MG/D5W 500 MG/100 ML IVPB IV SCH (10:06)
[2018-07-13] MEDS: ZOCOR PO SCH (10:06)
[2018-07-13] MEDS: CENTRUM SILVER PO SCH (10:06)
[2018-07-13] MEDS: PRINIVIL PO SCH (10:06)
[2018-07-13] MEDS: VITAMIN B-1 PO SCH (10:15)
[2018-07-13] MEDS ORDERED: LIBRIUM NG SCH (12:00)
[2018-07-13] MEDS ORDERED: LIBRIUM NG PRN (12:49)
[2018-07-13] MEDS: TYLENOL PO PRN (15:06)
[2018-07-13] MEDS ORDERED: NS 250 ML IV ONE ×3 (18:17→21:04)
[2018-07-14] MEDS: ATROVENT NEB INH SCH ×6 (03:38→23:27)
[2018-07-14] MEDS: XOPENEX NEB INH SCH ×6 (03:39→23:27)
[2018-07-14] MEDS: ZOSYN 3.375 GM in NS 50 ML IV SCH ×4 (04:29→21:36)
[2018-07-14 04:36] LABS: BASO# 0.03 X1000 (0.0-0.2); BASO% 0.2 % (0.0-0.8); EOS% 2.1 % (0.0-10.0); HEMATOCRIT 30.6 % (42.0-52.0); HEMOGLOBIN 9.6 g/dL (14.0-18.0); IMM GRAN# 0.06 X1000 (0.0-0.04); IMM GRAN% 0.4 % (0.0-0.5); LYMPH# 1.25 X1000 (1.2-3.4); LYMPH% 8.9 % (20.5-51.1); MCH 33.1 PG (27-31); MCHC 31.4 g/dL (33-37); MCV 105.5 FL (81-99); MONO# 1.35 X1000 (0.11-0.59); MONO% 9.6 % (1.7-9.3); MPV 8.7 FL (7.4-10.4); NEUT# 11.08 X1000 (1.4-6.5); NEUT% 78.8 % (42.2-75.2); PLT 371 X1000 (130-400); RDW 14.5 % (11.5-14.5); WBC 14.07 X1000 (4.8-10.8)
[2018-07-14 04:40] LABS: ALLEN TEST YES; BE 6.6 mmoll (-3.0-3.0); BLOOD TYPE ARTERIAL; HCO3-(ACT) 30.1 mmoll (20.0-26.0); METHB 1.3 % (0.0-1.5); O2(CT) 12.6 mL/dL (15.0-23.0); O2HB 96.6 % (95.0-99.0); PCO2(98.6) 45 mmHg (35-45); PO2(98.6) 118 mmHg (60-100); SAMPLE BLOOD; SAO2 100.1 % (95.0-100.0); THB 9.1 g/dL (11.5-17.4); pH(98.6) 7.45 (7.35-7.45)
[2018-07-14 04:48] LABS: MODALITY BI PAP
[2018-07-14 04:56] LABS: AGAP 10; ALB/GLOB RATIO 0.8; ALBUMIN 2.8 g/dL (3.5-5.0); ALKALINE PHOSPHATASE 56 U/L (32-122); BUN 27 mg/dL (8-22); CALCIUM 9.3 mg/dL (8.8-10.2); CHLORIDE 109 mmol/L (98-107); COSMO 299; CREATININE 1.1 mg/dL (0.7-1.2); ESTIMATED GFR > 60; GLUCOSE 154 mg/dL (70-104); GOT 28 U/L (10-34); GPT 16 U/L (10-44); MAGNESIUM 1.8 mg/dL (1.5-2.7); POTASSIUM 3.5 mmol/L (3.5-5.1); SODIUM 146 mmol/L (136-145); TCO2 27 mmol/L (25-35); TOTAL BILIRUBIN 0.26 mg/dL (0.20-1.00); TOTAL PROTEIN 6.1 g/dL (6.3-8.3)
[2018-07-14] MEDS ORDERED: LASIX IV ONE (08:04)
--- NOTE | 2018-07-14 08:17 | Diag Imaging Result Doc PS360 ---
EXAM: CHEST-PORTABLE 07/14/2018 HISTORY: SOB TECHNIQUE: AP portable at 0746 COMMENT: There is an NG tube which appears to pass below the diaphragm. There is a right pleural effusion. The inspiration is somewhat suboptimal. There is increased interstitial opacity and this there is some alveolar opacity in the right upper lobe. There is apparent atelectasis in the left costophrenic angle region. Compared to 07/13/2018 the pleural effusion on the right appears to be increased but there is somewhat less atelectasis in the right lower lobe. The inspiration is generally not as optimal as on the previous study. IMPRESSION: Right pleural effusion. Pulmonary edema with atelectasis versus pneumonia. Electronically signed by Robson Rush 07/14/2018 8:14 AM
--- NOTE | 2018-07-14 08:24 | PROGRESS NOTE ---
DATE: 07/14/2018 SUBJECTIVE: We have been cycling the BiPAP machine with the Ventimask, and he seems to be doing okay. He is still tachycardic a little bit and tachypneic. Sodium level decreased from 147 to 146, so we will continue with the same management. He has been having episodes of hypotension, and he received a couple liters of normal saline. I will get an x-ray right now, and I will monitor that again in the morning. OBJECTIVE: Vital Signs: Temperature was 97.8 degrees, pulse 102, respiratory rate 26, blood pressure 113/70 on the monitor. Oxygen saturation 99% on a Ventimask on the monitor. HEENT: Head normocephalic. No trauma. PERRLA. He has some facial asymmetry on the left side due to postsurgical treatment, mostly at the level of the left jaw down to the left neck. Neck: Supple. Some JVD. Central trachea. There is a large area that has been removed surgically on the left side. Chest: Decreased breath sounds globally with coarse breath sounds globally, mostly decreased at the bases with rhonchi and crepitus, some crackles. Abdomen: Soft, nontender, nondistended. No hepatosplenomegaly. Extremities: No edema, no clubbing, no cyanosis. Neurological examination: The patient is sleepy, but arousable. He is able to squeeze my hand today and open his eyes with voice stimulation. He is not answering my questions or following complex commands. LABORATORY: WBC 14, hemoglobin 9.6, hematocrit 30.6 platelet 371. Sodium 146, potassium 3.5, chloride 109, bicarbonate 27. BUN 27, creatinine 1.1, glucose 154, calcium 9.3, magnesium 1.8, albumin 2.8. ASSESSMENT AND PLAN: 1. New onset of seizure, likely due to alcohol withdrawal. As per the patient's , his last drink was last Tuesday I believe on 07/04/2018. At that, he had a seizure the next day in the morning. He was placed on Ativan drip which has been stopped already. Now, he is on Librium as needed and Haldol p.r.n. for agitation. He did not receive a dose of those medications during the night per the nurse. 2. Alcohol abuse with alcohol with withdrawal symptoms. Again, for now we will continue with the same management, as-needed medications. 3. Hypertension. Actually this patient is having episodes of hypotension. He received a couple of liters of fluid yesterday. 4. Hypotension as above. On the records, he has a positive balance of 17 liters. Probably, if he has low blood pressure again, I will use pressors. 5. Bilateral lower lobe infiltrates due to aspiration. Likely aspiration pneumonia. Continue with antibiotics. 6. History of stroke times 2. Also, he has a left carotid stent that has been occluded. We will continue with Plavix. 7. History of throat cancer with radiation 30 years ago with radical neck resection, aware. 8. Hyperlipidemia. Continue with the same management. 9. Depression. Continue with Celexa. 10. History of forehead melanoma. Apparently, that was removed 1-1/2 months ago. I do not see any infection or problems at this time. 11. Dehydration, resolved. 12. Mild hyponatremia. Continue with free water intake through the nasogastric tube. 13. Elevated liver function tests, resolved. 14. Elevated creatinine kinase, resolved. 15. Dysphagia. This patient has been evaluated before by a swallow evaluation, and he was shocking. A nasogastric tube has been placed, and he is tolerating the feedings. 16. Acute hypoxemic and hypercapnic respiratory failure. Continue cycling the BiPAP machine with the Ventimask. 17. Physical deconditioning. I think we can start now with physical therapy and do some range of motion. CRITICAL CARE TIME: 35 minutes. cc: Roosevelt Michel MD
[2018-07-14] MEDS: LEVAQUIN 500 MG/D5W 500 MG/100 ML IVPB IV SCH (08:29)
[2018-07-14] MEDS: CELEXA PO SCH (08:30)
[2018-07-14] MEDS: PLAVIX PO SCH (08:30)
[2018-07-14] MEDS: CENTRUM SILVER PO SCH (08:30)
[2018-07-14] MEDS: VITAMIN B-1 PO SCH (08:30)
[2018-07-14] MEDS: ZOCOR PO SCH (08:30)
[2018-07-14] MEDS: MUCOMYST 10% INH SCH ×2 (11:44→19:59)
--- NOTE | 2018-07-14 13:57 | PULMONOLOGY PROGRESS NOTE ---
DATE: 07/14/2018 SUBJECTIVE: The patient is currently on BiPAP. He is arousable to stimulation but does not appear to be oriented. OBJECTIVE: Vital Signs: The patient has been afebrile for the last 24 hours. Blood pressure is 119/68, heart rate 99, respiratory rate 22 on BiPAP, and oxygen saturation 95%. HEENT: Pupils are equal and reactive. Oropharynx evaluation is limited with BiPAP in place. Neck: Supple. Respiratory: Chest reveals coarse rhonchi. Cardiac: S1, S2. Abdomen: The abdomen is soft. No overt suprapubic catheter site evident. Extremities: The extremities are without edema. LABORATORIES: Chest x-ray reveals a right-sided effusion with opacity in the right upper lobe. Effusion may slightly have increased. Shallow inspiration. Sodium is 146, potassium 3.5, chloride 109, CO2 27, BUN 27, and creatinine 1.1. White blood count is 14.07, hemoglobin 9.6, and platelet count 371,000. IMPRESSION: A 73-year-old with a history of alcohol use, new onset seizure, acute hypoxemic respiratory failure, pneumonia, history of stroke, fluctuating mental status, mild hypernatremia, altered mental status/delirium, and dysphagia. The patient does not appear to have improved clinically by reviewing of the chart. It is difficult to follow intake and output with no Redman catheter placed. I will discuss possible Redman catheter with the family. I am aware that he had a catheter requirement in the past. PLAN: 1. Continue to cycle BiPAP as needed for hypoxemic respiratory failure. 2. Continue antibiotics for possible pneumonia. 3. Discuss possible catheter placement to ensure that he is not having urinary obstruction and to help monitor his fluids if this can be placed. 4. Follow up chest x-ray tomorrow morning. cc: Artie Velazco MD
[2018-07-15] MEDS: ZOSYN 3.375 GM in NS 50 ML IV SCH (03:04)
[2018-07-15] MEDS: XOPENEX NEB INH SCH ×6 (03:32→23:58)
[2018-07-15] MEDS: ATROVENT NEB INH SCH ×6 (03:32→23:58)
[2018-07-15 04:20] LABS: URINE SOURCE CATH
[2018-07-15 04:24] LABS: BILIRUBIN URINE NEGATIVE (NEGATIVE); BLOOD URINE NEGATIVE (NEGATIVE); COLOR ORANGE; GLUCOSE URINE NEGATIVE (NEGATIVE); KETONE URINE NEGATIVE (NEGATIVE); LEUKOCYTES URINE NEGATIVE (NEGATIVE); NITRITE URINE NEGATIVE (NEGATIVE); PROTEIN URINE 30 mg/dL (NEGATIVE); SP GRAVITY URINE 1.014; TURBIDITY URINE TURBID (CLEAR); UROBILINOGEN URINE NORMAL (NORMAL)
[2018-07-15 04:26] LABS: UR EPITHELIAL CELLS <10 /HPF (<10); URINE BACTERIA NEGATIVE /HPF; URINE WBC <10 /HPF (<10)
[2018-07-15 05:31] LABS: BASO# 0.02 X1000 (0.0-0.2); BASO% 0.1 % (0.0-0.8); EOS# 0.51 X1000 (0.0-0.7); EOS% 2.9 % (0.0-10.0); HEMATOCRIT 32.4 % (42.0-52.0); IMM GRAN# 0.09 X1000 (0.0-0.04); IMM GRAN% 0.5 % (0.0-0.5); LYMPH# 1.84 X1000 (1.2-3.4); LYMPH% 10.4 % (20.5-51.1); MCH 32.6 PG (27-31); MCHC 30.9 g/dL (33-37); MCV 105.5 FL (81-99); MONO# 1.26 X1000 (0.11-0.59); MONO% 7.2 % (1.7-9.3); MPV 8.8 FL (7.4-10.4); NEUT% 78.9 % (42.2-75.2); PLT 394 X1000 (130-400); RBC 3.07 XMIL (4.7-6.1); RDW 14.4 % (11.5-14.5); WBC 17.62 X1000 (4.8-10.8)
[2018-07-15 05:34] LABS: ALLEN TEST YES; BE 7.7 mmoll (-3.0-3.0); BLOOD TYPE ARTERIAL; HCO3-(ACT) 30.9 mmoll (20.0-26.0); METHB 1.1 % (0.0-1.5); O2(CT) 14.5 mL/dL (15.0-23.0); O2HB 95.7 % (95.0-99.0); PO2(98.6) 94 mmHg (60-100); SAMPLE BLOOD; SAO2 99.6 % (95.0-100.0); THB 10.7 g/dL (11.5-17.4); pH(98.6) 7.41 (7.35-7.45)
[2018-07-15 05:34] LABS: AGAP 12; ALB/GLOB RATIO 0.6; ALBUMIN 2.6 g/dL (3.5-5.0); ALKALINE PHOSPHATASE 63 U/L (32-122); BUN 24 mg/dL (8-22); CALCIUM 9.5 mg/dL (8.8-10.2); CHLORIDE 107 mmol/L (98-107); COSMO 300; CREATININE 0.8 mg/dL (0.7-1.2); ESTIMATED GFR > 60; GLUCOSE 164 mg/dL (70-104); GOT 38 U/L (10-34); GPT 20 U/L (10-44); MAGNESIUM 1.9 mg/dL (1.5-2.7); POTASSIUM 3.2 mmol/L (3.5-5.1); SODIUM 147 mmol/L (136-145); TCO2 28 mmol/L (25-35); TOTAL BILIRUBIN 0.23 mg/dL (0.20-1.00); TOTAL PROTEIN 6.7 g/dL (6.3-8.3)
[2018-07-15 05:35] LABS: MODALITY BI PAP; PCO2(98.6) 53 mmHg (35-45)
[2018-07-15] MEDS: POTASSIUM CHLORIDE 20% LIQUID MISC PRN (06:23)
[2018-07-15] MEDS ORDERED: POTASSIUM CHLORIDE 20% LIQUID PO ONE (07:35)
[2018-07-15] MEDS: CELEXA PO SCH (08:24)
[2018-07-15] MEDS: ZOCOR PO SCH (08:24)
[2018-07-15] MEDS: MAXIPIME 1 GM in NS 50 ML IV SCH ×2 (08:24→19:56)
[2018-07-15] MEDS: LEVAQUIN 500 MG/D5W 500 MG/100 ML IVPB IV SCH (08:24)
[2018-07-15] MEDS: CENTRUM SILVER PO SCH (08:24)
[2018-07-15] MEDS: VITAMIN B-1 PO SCH (08:24)
[2018-07-15] MEDS: PLAVIX PO SCH (08:24)
[2018-07-15] MEDS: MUCOMYST 10% INH SCH ×2 (08:59→19:51)
[2018-07-15] MEDS ORDERED: D5W 1,000 ML IV SCH (09:15)
--- NOTE | 2018-07-15 09:21 | Diag Imaging Result Doc PS360 ---
CHEST-PORTABLE - 07/15/2018 INDICATION: dyspnea COMPARISON: 07/14/2018 FINDINGS: Stable nasogastric tube in good position. Stable cardiomegaly and pulmonary vascular congestion. Stable hazy bibasilar infiltrates/atelectasis. No significant pleural effusion. IMPRESSION: No change from prior. Electronically signed by Cristiano Alston 07/15/2018 9:19 AM
[2018-07-15] MEDS: ZYVOX 600 MG/D5W 600 MG/300 ML IVPB IV SCH ×2 (09:50→19:57)
[2018-07-15] MEDS: LASIX IV SCH ×2 (09:50→21:52)
--- NOTE | 2018-07-15 10:55 | PROGRESS NOTE ---
DATE: 07/15/2018 SUBJECTIVE: At this moment, this patient is using the BiPAP machine. Vital signs are stable. WBC increased from 14 to 17. I will stop the Zosyn and I will put this patient on cefepime and I will add Zyvox. Depending on the white blood cells tomorrow, I will ask Infectious Disease Department to see the patient. He is still mildly hypernatremic yesterday. I will increase the amount of water. I will monitor for now. A catheter has been placed. Urine output seems to be good. OBJECTIVE: Vital Signs: Temperature 97.9, pulse 89, respiratory rate 15, blood pressure 120/70, oxygen saturation 98 on the BiPAP machine. HEENT: Head normocephalic. No trauma. PERRLA. He has some facial asymmetry on the left side due to postsurgical treatment. Neck: Supple. Some JVD. Central trachea. There is a large area that has been removed surgically on the left side. Chest: Coarse breath sounds bilaterally with crepitus at the bases and some rhonchi. Crackles are better today. Abdomen: Soft, nontender, nondistended. No hepatosplenomegaly. Extremities: No edema. No clubbing. No cyanosis. Neurological: This patient is sleepy, but arousable. He opens his eyes when I say his name and he is following commands a little bit more consistent today. LABORATORY: WBC 17.6, hemoglobin 10, hematocrit 32.4, platelets 294. Sodium 147, potassium 3.2, chloride 107, bicarbonate 28, BUN 24, creatinine 0.8, glucose 164. Calcium 9.5. Magnesium 1.9. AST 38, ALT 20, alkaline phosphatase 63, protein is 2.6. ASSESSMENT AND PLAN: 1. New onset of seizure likely secondary to alcohol withdrawal. As per the patient's , his last drink was last 07/04/2018 and he had a seizure the next day. He was placed on Ativan drip which has been stopped already. We will continue with Librium p.r.n. and Haldol p.r.n. for agitation. 2. Alcohol abuse with alcohol withdrawal symptoms. As above. 3. Bilateral pneumonia. I will stop the Zosyn today and I will put him on cefepime and Zyvox. If the white blood cells still go up, I will ask Infectious Disease Department to evaluate the patient. 4. Acute hypoxemic and hypercapnic respiratory failure. Continue cycling the BiPAP machine with the Ventimask. 5. History of hypertension. This patient has been having some episodes of hypotension. He received a couple liters a couple days ago for that and he has stabilized. 6. History of stroke times 2. Also, he has a left carotid stent that has been occluded. We will continue with Plavix. 7. History of throat cancer with radiation 30 years ago with a radical neck resection, aware. 8. Hyperlipidemia. Continue with same management. 9. Depression. Continue with Celexa. 10. History of forehead melanoma, aware. 11. Dehydration, resolved. 12. Mild hypernatremia. An amount of water has been increased yesterday. I will wait 1 more day to see how he does. 13. Elevated liver function tests, better. 14. Dysphagia. This patient has been evaluated before by the swallow team and he was choking with food, so we decided to place an NG tube and he is tolerating the feedings. 15. Physical deconditioning. Continue physical therapy. 16. Hypokalemia. I will replace the potassium. CRITICAL CARE TIME: 35 minutes. cc: Roosevelt Michel MD
[2018-07-15] MEDS ORDERED: TEARISOL OPH SOLUTION BOTH EYES PRN (15:50)
--- NOTE | 2018-07-15 21:52 | PULMONOLOGY PROGRESS NOTE ---
DATE: 07/15/2018 SUBJECTIVE: Patient currently is on BiPAP and being transitioned to Ventimask for a trial off BiPAP. He is more arousable. He is not conversant. OBJECTIVE: Blood pressure 120/70, heart rate 89, respiratory rate 15, oxygen saturation 98% on BiPAP.HEENT: Pupils are equal and reactive. There is some crusting around the eyelids left greater than right. Oropharynx appears dry. Neck: Is supple. Chest: Reveals occasional rhonchi bilaterally without significant wheeze. Cardiac: Regular rate, normal S1, normal S2. Abdomen: Soft with positive bowel sounds. Extremities: Are without edema. LABORATORIES: Sodium 147, potassium 3.2, chloride 107, bicarbonate 28, BUN 24, creatinine 0.8, glucose 164, white blood count 17.6, hemoglobin 10.0, platelet count 394,000. Chest x-ray reveals some atelectasis at the right base but some clearing at the right costophrenic angle. Arterial blood gas pH 7.41, pCO2 of 53, PO2 of 94. IMPRESSION: A 73-year-old with history of alcohol use, history of new onset seizures, acute hypoxemic and hypercapnic respiratory failure, pneumonia, fluctuating mental status, dysphagia, mild hypernatremia. There has been little change since over the last 24 hours. RECOMMENDATIONS: 1. Continue to cycle BiPAP as needed for hypoxemic and hypercapnic respiratory failure. 2. Continue current antibiotic regimen. 3. Will infuse 1 L of D5W for free water given the hypernatremia. 4. Followup chest x-ray tomorrow. cc: Artie Velazco MD
[2018-07-16] MEDS: ATROVENT NEB INH SCH ×6 (03:34→23:14)
[2018-07-16] MEDS: XOPENEX NEB INH SCH ×6 (03:34→23:14)
[2018-07-16 05:04] LABS: ALLEN TEST YES; BE 11.4 mmoll (-3.0-3.0); BLOOD TYPE ARTERIAL; HCO3-(ACT) 33.8 mmoll (20.0-26.0); O2(CT) 12.3 mL/dL (15.0-23.0); O2HB 94.9 % (95.0-99.0); PO2(98.6) 83 mmHg (60-100); SAMPLE BLOOD; SAO2 96.6 % (95.0-100.0); THB 9.1 g/dL (11.5-17.4); pH(98.6) 7.45 (7.35-7.45)
[2018-07-16 05:05] LABS: MODALITY BI PAP
[2018-07-16 05:06] LABS: PCO2(98.6) 53 mmHg (35-45)
[2018-07-16 06:18] LABS: BASO# 0.02 X1000 (0.0-0.2); BASO% 0.1 % (0.0-0.8); EOS# 0.57 X1000 (0.0-0.7); EOS% 3.4 % (0.0-10.0); HEMATOCRIT 33.6 % (42.0-52.0); HEMOGLOBIN 10.3 g/dL (14.0-18.0); IMM GRAN# 0.14 X1000 (0.0-0.04); IMM GRAN% 0.8 % (0.0-0.5); LYMPH# 1.85 X1000 (1.2-3.4); MCHC 30.7 g/dL (33-37); MCV 104.3 FL (81-99); MONO# 1.26 X1000 (0.11-0.59); MONO% 7.5 % (1.7-9.3); MPV 8.8 FL (7.4-10.4); NEUT# 13.05 X1000 (1.4-6.5); NEUT% 77.2 % (42.2-75.2); PLT 424 X1000 (130-400); RBC 3.22 XMIL (4.7-6.1); RDW 14.3 % (11.5-14.5); WBC 16.89 X1000 (4.8-10.8)
[2018-07-16 06:46] LABS: AGAP 13; ALB/GLOB RATIO 0.7; ALBUMIN 2.8 g/dL (3.5-5.0); ALKALINE PHOSPHATASE 69 U/L (32-122); BUN 18 mg/dL (8-22); CALCIUM 9.3 mg/dL (8.8-10.2); CHLORIDE 100 mmol/L (98-107); COSMO 288; CREATININE 0.8 mg/dL (0.7-1.2); ESTIMATED GFR > 60; GLUCOSE 122 mg/dL (70-104); GOT 72 U/L (10-34); GPT 40 U/L (10-44); MAGNESIUM 1.7 mg/dL (1.5-2.7); POTASSIUM 3.6 mmol/L (3.5-5.1); SODIUM 143 mmol/L (136-145); TCO2 30 mmol/L (25-35); TOTAL BILIRUBIN 0.25 mg/dL (0.20-1.00); TOTAL PROTEIN 7.1 g/dL (6.3-8.3)
[2018-07-16 06:57] LABS: EOS 4 % (1-10); LYMPHS 14 % (21-51); MONO 4 % (1-9); SEGS 78 % (42-75)
[2018-07-16] MEDS: MAXIPIME 1 GM in NS 50 ML IV SCH ×2 (07:34→19:54)
[2018-07-16] MEDS: ZYVOX 600 MG/D5W 600 MG/300 ML IVPB IV SCH ×2 (07:34→19:56)
--- NOTE | 2018-07-16 07:50 | Diag Imaging Result Doc PS360 ---
CHEST-PORTABLE - 07/16/2018 INDICATION: sob COMPARISON: 07/15/2018 FINDINGS: Stable nasogastric tube in good position. There has been significant improvement in the pulmonary vascular congestion and right basilar infiltrate. No pneumothorax or significant pleural effusion. IMPRESSION: Improvement from prior. Electronically signed by Cristiano Alston 07/16/2018 7:48 AM
[2018-07-16] MEDS: MUCOMYST 10% INH SCH ×2 (07:51→19:47)
[2018-07-16] MEDS: CELEXA PO SCH (09:57)
[2018-07-16] MEDS: VITAMIN B-1 PO SCH (09:57)
[2018-07-16] MEDS: PLAVIX PO SCH (09:57)
[2018-07-16] MEDS: CENTRUM SILVER PO SCH (09:57)
[2018-07-16] MEDS: ZOCOR PO SCH (09:57)
[2018-07-16] MEDS: LEVAQUIN 500 MG/D5W 500 MG/100 ML IVPB IV SCH (09:57)
--- NOTE | 2018-07-16 10:34 | PROGRESS NOTE ---
DATE: 07/16/2018 SUBJECTIVE: This patient seems to be more awake. He is following commands for me. He is trying to talk but it is really hard to understand what he says. He is slightly tachycardic. He is still tachypneic but he seems to be getting better. At this moment he is on room air and on the monitor the oxygen saturation is around 96. Pending x-ray today. OBJECTIVE: Vital Signs: Temperature 97.9 degrees, pulse on the monitor 105, respiratory rate 26, oxygen saturation 96% on room air, blood pressure on the monitor 110/69. HEENT: Head normocephalic. No trauma. PERRLA. He has some facial asymmetry on the left side due to postsurgical treatment. Neck: Supple. Some JVD. Central trachea. There is a large area that has been removed surgically on the left side. Chest: Coarse breath sounds bilaterally with some crepitus at the bases and some rhonchi. Possible mild crackles. Abdomen: Soft, nontender, nondistended. No hepatosplenomegaly. Extremities: No edema. No clubbing. No cyanosis. Neurological: The patient is more alert today. He is opening his eyes when I say his name and he is following commands consistently. He is trying to talk but I cannot understand what he says. It is hard to say if he has some focal weakness at this moment. LABORATORY: WBC 16.8, hemoglobin 10.3, hematocrit 33.6, platelet 402. Sodium 143, potassium 3.6, chloride 100, bicarbonate 30, BUN 18, creatinine 0.8, glucose 122, calcium 9.3, magnesium 1.7. AST 72, ALT 40, alkaline phosphatase 69, albumin 2.8. ASSESSMENT AND PLAN: 1. New onset of seizure, likely secondary to alcohol withdrawal. As per the patient's , his last drink was last Tuesday07/04/2018 and he had a seizure the next day. He was placed on Ativan drip which has been stopped, then he received some Librium, and now he is on p.r.n. medications. 2. Alcohol abuse with alcohol withdrawal symptoms, as above. 3. Bilateral pneumonia. Continue with current treatment. WBC is still elevated but a little bit better compared with yesterday. 4. Acute hypoxemic and hypercapnic respiratory failure. Continue with the respiratory treatment. Cycle the BiPAP machine with nasal cannula or Ventimask. 5. History of hypertension. Stable. 6. History of stroke x2. Also he has a left carotic stent that has been occluded. We will continue with Plavix. 7. History of throat cancer with radiation 30 years ago with radical neck resection. Aware. 8. Hyperlipidemia. Continue with the same management. 9. Depression. Continue with Celexa. 10. History of forehead melanoma. Aware. 11. Dehydration, resolved. 12. Mild hypernatremia, resolved. This patient received some D5W yesterday. 13. Elevated liver function tests, better. 14. Dysphagia. This patient has been evaluated before by the swallow team and he was choking with food. We decided to place an NG tube and he is tolerating the tube feedings. 15. Physical deconditioning. Continue physical therapy, range of motion for now. 16. Hypokalemia, resolved. CRITICAL CARE TIME: 35 minutes. cc: Roosevelt Michel MD
--- NOTE | 2018-07-16 20:40 | PULMONOLOGY PROGRESS NOTE ---
DATE: 07/16/2018 INTERIM HISTORY: Patient was evaluated earlier this morning. He was resting comfortably on nasal cannula. Tube feeds were infusing. He had occasional rhonchi. Later in the morning, he had diffuse audible rhonchi along with increased work of breathing. Suctioning from the posterior pharynx had the color and smell of tube feeds. His NG tube was placed to suction, and he was placed back on BiPAP. OBJECTIVE: Vital Signs: BP 105/71, heart rate 115, respiratory rate 34, oxygen saturation 94%. HEENT: Pupils are equal and reactive. Oropharynx evaluation is limited with BiPAP in place. Neck: Supple. Chest: Reveals diffuse rhonchi bilaterally. Cardiac: S1-S2. Abdomen: soft. Extremities: Without edema. LABORATORY DATA: Chest x-ray reveals decreased vascular congestion and decrease in right basilar infiltrate. White blood count 16.89, hemoglobin 10.3, platelet count 124,000. Arterial blood gas with pH 7.45, pCO2 of 53, PO2 of 83. Chemistry: Sodium 143, potassium 3.6, chloride 100, bicarbonate 30, BUN 18, creatinine 0.8. IMPRESSION: A 73-year-old with history of alcohol use, recent onset of new seizure activity, acute hypoxemic and hypercapnic respiratory failure, pneumonia, fluctuating mental status, dysphagia, and aspiration of tube feeds today. RECOMMENDATION: 1. Hold tube feeds. We will initiate Clinimix and lipids. 2. Continue antibiotic regimen. 3. Cycle BiPAP and O2 as needed for maintaining oxygen saturation greater than 90%. 4. Followup chest tomorrow. 5. Hopefully his mental status will continue to improve, and he can be initiated on p.o. intake. cc: Artie Velazco MD
[2018-07-17] MEDS: XOPENEX NEB INH SCH ×6 (03:11→23:06)
[2018-07-17] MEDS: ATROVENT NEB INH SCH ×6 (03:11→23:06)
[2018-07-17 04:42] LABS: ALLEN TEST YES; BE 8.4 mmoll (-3.0-3.0); BLOOD TYPE ARTERIAL; HCO3-(ACT) 31.4 mmoll (20.0-26.0); METHB 1.4 % (0.0-1.5); O2(CT) 22.1 mL/dL (15.0-23.0); O2HB 96.4 % (95.0-99.0); PCO2(98.6) 46 mmHg (35-45); PO2(98.6) 130 mmHg (60-100); SAMPLE BLOOD; SAO2 99.8 % (95.0-100.0); THB 16.2 g/dL (11.5-17.4); pH(98.6) 7.47 (7.35-7.45)
[2018-07-17] MEDS: CLINIMIX E 4.25%-5% SOLUTION 1,000 ML IV SCH ×4 (04:43→23:47)
[2018-07-17] MEDS: LIPOSYN 20% 250 ML IV SCH ×2 (04:43→20:06)
[2018-07-17 04:44] LABS: MODALITY BI PAP
--- NOTE | 2018-07-17 06:02 | Diag Imaging Result Doc PS360 ---
EXAM: CHEST-PORTABLE HISTORY: dyspnea TECHNIQUE: Portable chest single view COMPARISON: 07/16/2018 FINDINGS: Interval placement of the nasogastric tube. This overlies the esophagus and stomach. Poor inspiratory effort. No cardiomegaly. There is mild vascular distention. No pleural effusions identified. No consolidation. IMPRESSION: Mild interval worsening. Electronically signed by Aleksandar Martinez 07/17/2018 6:00 AM
[2018-07-17 06:36] LABS: BASO# 0.03 X1000 (0.0-0.2); BASO% 0.2 % (0.0-0.8); EOS# 0.55 X1000 (0.0-0.7); EOS% 3.5 % (0.0-10.0); HEMOGLOBIN 10.2 g/dL (14.0-18.0); IMM GRAN# 0.12 X1000 (0.0-0.04); IMM GRAN% 0.8 % (0.0-0.5); LYMPH# 1.37 X1000 (1.2-3.4); LYMPH% 8.7 % (20.5-51.1); MCHC 30.9 g/dL (33-37); MCV 103.4 FL (81-99); MONO# 1.32 X1000 (0.11-0.59); MONO% 8.3 % (1.7-9.3); MPV 9.2 FL (7.4-10.4); NEUT# 12.44 X1000 (1.4-6.5); NEUT% 78.5 % (42.2-75.2); PLT 445 X1000 (130-400); RBC 3.19 XMIL (4.7-6.1); RDW 14.2 % (11.5-14.5); WBC 15.83 X1000 (4.8-10.8)
[2018-07-17 06:51] LABS: AGAP 12; BUN 20 mg/dL (8-22); CALCIUM 9.8 mg/dL (8.8-10.2); CHLORIDE 99 mmol/L (98-107); COSMO 277; CREATININE 0.8 mg/dL (0.7-1.2); ESTIMATED GFR > 60; GLUCOSE 80 mg/dL (70-104); MAGNESIUM 1.8 mg/dL (1.5-2.7); PHOSPHORUS 3.4 mg/dL (2.7-4.5); SODIUM 138 mmol/L (136-145); TCO2 27 mmol/L (25-35)
[2018-07-17 07:18] LABS: EOS 4 % (1-10); LYMPHS 8 % (21-51); MONO 4 % (1-9); SEGS 84 % (42-75)
[2018-07-17] MEDS: MUCOMYST 10% INH SCH ×2 (07:34→19:02)
--- NOTE | 2018-07-17 07:46 | PROGRESS NOTE ---
DATE: 07/17/2018 SUBJECTIVE: This patient seems to be more awake. He is following commands for me. He is a little bit tachycardic. The tube feeds were infusing yesterday but they were stopped because apparently he started having some aspiration so he has been placed now on Clinimix and lipids. X- ray today showed a mild interval worsening but no new consolidation. OBJECTIVE: Vital Signs: Temperature 98.6 degrees, pulse 114, respiratory rate 22, blood pressure 130/81, oxygen saturation 100% on 4 L of nasal cannula. HEENT: Head normocephalic. No trauma. PERRLA. He has some facial asymmetry on the left side due to postsurgical treatment, left jaw down to the left neck. Neck: Supple. No JVD. Central trachea. There is a large area that has been removed surgically on the left side. Chest: Coarse breath sounds bilaterally with crepitus at the bases and some rhonchi. Abdomen: Soft, nontender, nondistended. No hepatosplenomegaly. Extremities: No edema. No clubbing. No cyanosis. Neurological Examination: This patient is sleepy but arousable. He is opening his eyes with voice stimulation. He is following commands consistently. When he tries to talk, I cannot understand what he says. Laboratory: WBC 15.8, hemoglobin 10.2, hematocrit 33, platelets 445,000. Sodium 138, potassium 4, chloride 99, bicarbonate 27, BUN 20, creatinine 0.8, glucose 80, calcium 9.8, magnesium 1.8. ASSESSMENT AND PLAN: 1. New onset of seizures, likely secondary to alcohol withdrawal. As per the patient's , his last drink was on 07/04/2018, and then he had a seizure the next day. He was placed on an Ativan drip initially which has been stopped and then he received some Librium. Now, he is on as needed medications. 2. Alcohol abuse with alcohol withdrawal symptoms, as above. 3. Acute hypoxemic and hypercarbic respiratory failure. Continue with respiratory treatments, BiPAP machine as needed, oxygen supplementation, antibiotics. Likely, this is secondary to bilateral pneumonia. 4. Bilateral pneumonia. Continue with the same treatment. WBC still elevated but getting better slowly. 5. History of hypertension, stable. 6. History of strokes x2. Also, he has a left carotid stent that has been occluded. We will continue with Plavix. 7. History of throat cancer with radiation around 30 years ago with radical neck resection, aware. 8. Hyperlipidemia. Continue with the same management. 9. Depression. Continue with Celexa. 10. History of forehead melanoma, aware. 11. Dehydration, resolved. 12. Mild hyponatremia, resolved. 13. Elevated liver function tests, better. 14. Dysphagia. This patient has been evaluated before by the swallow team as he was choking with food. We decided to put this patient on a nasogastric tube. He was tolerating the tube feeds until yesterday, that he has some aspiration as well. He has been placed on Clinimix and lipids at this moment. Once this patient is strong enough and more awake, probably we can try again to feed this patient by mouth. 15. Physical deconditioning. Continue with physical therapy, range of motion for now. 16. Hypokalemia, resolved. cc: Roosevelt Michel MD
[2018-07-17] MEDS: MAXIPIME 1 GM in NS 50 ML IV SCH ×2 (07:51→20:07)
[2018-07-17] MEDS: ZYVOX 600 MG/D5W 600 MG/300 ML IVPB IV SCH ×2 (07:51→20:06)
[2018-07-17] MEDS: PLAVIX PO SCH (09:48)
[2018-07-17] MEDS: CENTRUM SILVER PO SCH (09:48)
[2018-07-17] MEDS: VITAMIN B-1 PO SCH (09:48)
[2018-07-17] MEDS: ZOCOR PO SCH (09:48)
[2018-07-17] MEDS: LEVAQUIN 500 MG/D5W 500 MG/100 ML IVPB IV SCH (09:48)
[2018-07-17] MEDS: CELEXA PO SCH (09:48)
[2018-07-17] MEDS: TYLENOL PO PRN (22:43)
[2018-07-18] MEDS: XOPENEX NEB INH SCH ×6 (03:35→23:27)
[2018-07-18] MEDS: ATROVENT NEB INH SCH ×6 (03:35→23:27)
[2018-07-18 04:38] LABS: ALLEN TEST YES; BE 6.6 mmoll (-3.0-3.0); BLOOD TYPE ARTERIAL; HCO3-(ACT) 30.1 mmoll (20.0-26.0); METHB 0.6 % (0.0-1.5); O2(CT) 14.6 mL/dL (15.0-23.0); O2HB 97.4 % (95.0-99.0); PCO2(98.6) 40 mmHg (35-45); PO2(98.6) 128 mmHg (60-100); SAMPLE BLOOD; SAO2 99.8 % (95.0-100.0); THB 10.5 g/dL (11.5-17.4); pH(98.6) 7.49 (7.35-7.45)
[2018-07-18 04:40] LABS: MODALITY BI PAP
[2018-07-18 05:20] LABS: BASO# 0.03 X1000 (0.0-0.2); BASO% 0.2 % (0.0-0.8); EOS# 0.59 X1000 (0.0-0.7); EOS% 4.4 % (0.0-10.0); HEMATOCRIT 32.2 % (42.0-52.0); HEMOGLOBIN 9.9 g/dL (14.0-18.0); IMM GRAN# 0.13 X1000 (0.0-0.04); LYMPH# 1.33 X1000 (1.2-3.4); LYMPH% 9.8 % (20.5-51.1); MCH 31.5 PG (27-31); MCHC 30.7 g/dL (33-37); MCV 102.5 FL (81-99); MONO# 1.06 X1000 (0.11-0.59); MONO% 7.8 % (1.7-9.3); MPV 9.2 FL (7.4-10.4); NEUT# 10.38 X1000 (1.4-6.5); NEUT% 76.8 % (42.2-75.2); PLT 421 X1000 (130-400); RBC 3.14 XMIL (4.7-6.1); RDW 14.3 % (11.5-14.5); WBC 13.52 X1000 (4.8-10.8)
[2018-07-18 06:10] LABS: AGAP 11; ALB/GLOB RATIO 0.6; ALBUMIN 2.6 g/dL (3.5-5.0); ALKALINE PHOSPHATASE 58 U/L (32-122); BUN 24 mg/dL (8-22); CALCIUM 9.3 mg/dL (8.8-10.2); CHLORIDE 98 mmol/L (98-107); COSMO 275; CREATININE 0.8 mg/dL (0.7-1.2); ESTIMATED GFR > 60; GLUCOSE 117 mg/dL (70-104); GOT 29 U/L (10-34); GPT 25 U/L (10-44); PHOSPHORUS 3.9 mg/dL (2.7-4.5); POTASSIUM 3.6 mmol/L (3.5-5.1); SODIUM 135 mmol/L (136-145); TCO2 26 mmol/L (25-35); TOTAL BILIRUBIN 0.21 mg/dL (0.20-1.00); TOTAL PROTEIN 6.9 g/dL (6.3-8.3)
--- NOTE | 2018-07-18 08:07 | Diag Imaging Result Doc PS360 ---
CHEST-PORTABLE - 07/18/2018 INDICATION: dyspnea COMPARISON: 07/17/2018 FINDINGS: Stable low lung volumes. Stable cardiomegaly and pulmonary vascular congestion. Stable multifocal linear infiltrates or atelectasis in the right lung base. No new infiltrates. No significant pleural effusion. Stable nasogastric tube in good position. IMPRESSION: No change from prior. Electronically signed by Cristiano Alston 07/18/2018 8:04 AM
[2018-07-18] MEDS: MUCOMYST 10% INH SCH ×2 (08:14→19:38)
[2018-07-18] MEDS: ZYVOX 600 MG/D5W 600 MG/300 ML IVPB IV SCH ×2 (09:27→19:30)
[2018-07-18] MEDS: MAXIPIME 1 GM in NS 50 ML IV SCH ×2 (09:27→19:30)
[2018-07-18] MEDS: PLAVIX PO SCH (09:28)
[2018-07-18] MEDS: VITAMIN B-1 PO SCH (09:28)
[2018-07-18] MEDS: CELEXA PO SCH (09:28)
[2018-07-18] MEDS: LEVAQUIN 500 MG/D5W 500 MG/100 ML IVPB IV SCH (09:28)
[2018-07-18] MEDS: ZOCOR PO SCH (09:29)
[2018-07-18] MEDS: CENTRUM SILVER PO SCH (09:29)
[2018-07-18] MEDS: TYLENOL PO PRN (09:45)
--- NOTE | 2018-07-18 10:16 | PROGRESS NOTE ---
DATE: 07/18/2018 SUBJECTIVE: The patient is sleepier, but answered to verbal stimuli following basic commands only. Apparently as per nursing staff, there has been some bloody secretions coming out from the NG tube. Hemodynamically, he has been stable. OBJECTIVE: Vital Signs: Temperature 98.4 degrees, heart rate 113, respiratory rate 27, blood pressure 138/88, O2 saturation 96%, FIO2 of 30%. General: This is a 73-year- old male, lying in bed using a BiPAP mask, sleeping in no acute distress. HEENT: Head is normocephalic, atraumatic. Mucous membranes very dry. There is some facial asymmetry on the left side due to postsurgical treatment, left jaw down. Neck: No JVD noted. No carotid bruits. There is an area that has been removed surgically on the left side. Cardiovascular: S1, S2 heard. Tachycardic. No murmurs, gallops, or rubs noted. Respiratory: Coarse breath sounds noted in both pulmonary bases with crackles as well. The patient is not using any accessory muscles or having work of breathing. Abdomen: Soft, nontender to palpation. Nondistended. Bowel sounds present. No organomegaly. Extremities: No clubbing, cyanosis. Peripheral pulses present in both legs. Neurological: Patient is sleepy, but arousable. Open eyes to verbal stimuli. Follows commands. But does not talk. LABORATORY DATA: White cell count 13.52, hemoglobin 9.9, hematocrit 32.2, platelets 421,000 with ABG that shows pH 7.49, with pCO2 40, pO2 128. Sodium 135. The rest of the BMP including phosphorus and magnesium is completely normal. ASSESSMENT AND PLAN: 1. New onset of seizures likely secondary to alcohol withdrawal. No more episodes of seizure while she is here. The patient is on Librium and also receiving Ativan as needed. We will continue to monitor. 2. Alcohol abuse with alcohol withdrawal as above. 3. Acute hypoxemic and hypercapnic respiratory failure. The patient is requiring still BiPAP machine, according to nursing staff. They tried to do Ventimask, but oxygen saturation drops. The ABG showed normal CO2 with mildly elevated pH 7.49. We will continue to monitor. Pulmonary following this patient. 4. Bilateral pneumonia. Patient's white cell count is still elevated. The patient is receiving levofloxacin, and cefepime, and Zyvox. Zyvox is day #4 treatment and cefepime is also day #4 of treatment, and 10 days of levofloxacin. At this point, we will continue with the same management. 5. History of cerebrovascular accident. We will continue with Plavix. We will continue to monitor. 6. History of throat cancer with radiation around 30 years ago with radical neck resection, aware. 7. Depression. Patient is on Celexa. Will continue with same management. 8. Dehydration, resolved. 9. Mild hyponatremia, resolved. 10. Dysphagia. The patient has been receiving tube feedings and then those were discontinued because of possible aspiration. Today, I was informed that this patient may have some bloody secretions coming up from the gastrostomy tube, so, we have consulted Gastroenterology. 11. Physical deconditioning. Physical therapy has been consulted, but I do not think he is able to work with them. 12. Disposition. is supposed to have a meeting with palliative care nurse today. cc: Elias Siu MD MTDD
--- NOTE | 2018-07-18 13:05 | Diag Imaging Result Doc PS360 ---
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 Actually the heart size is normal. No pericardial effusion. There is a hiatal hernia, with the gastroesophageal junction just below the diaphragmatic hiatus, but the entire stomach and duodenal bulb is up in the mediastinum. Otherwise upper abdominal images are unremarkable. There is no adenopathy. There are multifocal infiltrates, worst in the right upper lobe and left lower lobe. In addition there is bronchitis and mucous plugging of segmental airways mainly in the bases. There is a trace right pleural effusion. Bony structures are intact. IMPRESSION: 1. Multifocal bilateral bronchopneumonia worse in the right upper lobe and left lower lobe. Bronchitis and mucus plugging of segmental airways. 2. Trace right pleural effusion. 3. Significant hiatal hernia with the entire stomach up in the mediastinum, however the gastroesophageal junction is below the diaphragm. This exam was performed using automated exposure control, adjustment of mA or kV according to patient size, and/or use of iterative reconstruction technique Electronically signed by Cristiano Alston 07/18/2018 1:02 PM
[2018-07-18] MEDS ORDERED: ROMAZICON IV ONE (13:06)
[2018-07-18] MEDS: CLINIMIX E 4.25%-5% SOLUTION 1,000 ML IV SCH ×2 (13:10→21:45)
--- NOTE | 2018-07-18 18:13 | CONSULTATION ---
DATE OF CONSULTATION: 07/18/2018 REASON FOR CONSULTATION: Questionable hematemesis, nutrition requirements. HISTORY OF PRESENT ILLNESS: This is a 73-year-old male who was admitted to the hospital on 07/05/2018. Patient had new onset seizure activity thought to be related to alcohol withdrawal. Patient has a history of daily alcohol use drinking up to 5-6 bourbon and Cokes daily along with several beers daily. He decided to try and quit and developed withdrawal symptoms and new onset seizures. He was brought in to the emergency room for further evaluation. There was question that he had aspirated. Patient is currently on a BiPAP machine at the time of my evaluation, there was no family at the bedside. Patient was unable to assist with review of systems due to his BiPAP machine. Information is obtained from the nurse and the chart. We were asked to see the patient for possible hematemesis. There was concern of possible aspiration so his tube feedings were stopped and his NG tube was placed to low intermittent suction. There was a concern that he may have blood noted in his gastric secretions. Also there was discussion with the family about possibility of placing a feeding PEG tube or PEJ tube if indicated. I believe bilingual social worker was meeting with family today on plan of care. PAST MEDICAL HISTORY: History of alcohol abuse, history of stroke x2, hypertension, throat cancer 30 years ago that required radiation and surgery, BPH with TURP procedure. PAST SURGICAL HISTORY: TURP in 2017, patient had a suprapubic catheter in 2017 that has been removed, he had neck surgery for throat cancer, patient has had umbilical hernia repair, multiple skin cancers removed. ALLERGIES: No known drug allergies. HOME MEDICATIONS: Celexa 20 mg daily, Plavix 1 tablet daily, Prinivil 40 mg daily, Toprol-XL 50 mg every day, prednisone 1 tablet as directed, simvastatin daily. SOCIAL HISTORY: Positive for tobacco abuse. Per records the patient had been drinking daily 5-6 bourbon and Cokes and 2-3 beers daily for years. Patient had decided to try and stop drinking and the evening afterward started having seizure activity. REVIEW OF SYSTEMS: Per history of present illness. PHYSICAL EXAMINATION: Vital Signs: Temperature 97.6 degrees, pulse 99, respirations 30, blood pressure 134/83. General: Patient aroused easily. Has a BiPAP in place and was not able to speak with me but he did follow commands with good bilateral hand lifter/driver, he nodded his head to some questions. HEENT: Normocephalic atraumatic. Pupils equal, round, reactive to light. As noted patient has a BiPAP machine in place. Cardiovascular: Regular rate and rhythm. Respiratory: With some rhonchi and crackles. Abdomen: Soft. Positive bowel sounds. Nontender. Neurologic: Patient does respond to stimulus. He follows my commands but is not able to talk due to BiPAP machine. DIAGNOSTIC RESULTS: Laboratory. Hematology. WBC 13.52, hemoglobin 9.9, hematocrit 32.2, MCV 102.5, platelets 421,000. Chemistry. Sodium 135, potassium 3.6, chloride 98, CO2 26, BUN 24, creatinine 0.8, glucose 117, calcium 9.3, phosphorus 3.9, magnesium 2.0, total bilirubin 0.21, AST 29, ALT 25, alkaline phosphatase 58. Imaging. Chest x-ray today showed multifocal bilateral bronchopneumonia worse on the right upper lobe and left upper lobe, bronchitis and mucus plugging of segmental airways, trace right pleural effusion, significant hiatal hernia with entire stomach in the mediastinum however gastroesophageal junction is below the diaphragm. ASSESSMENT AND PLAN: 1. Alcohol abuse with recent alcohol withdrawal. 2. New onset of seizures most likely related to alcohol withdrawal. The patient is receiving Ativan and Librium. 3. Respiratory failure. Patient is on BiPAP. 4. Pneumonia on antibiotics. 5. Nutritional requirements. The patient had been receiving nasogastric tube feedings which were placed on hold for possible aspiration, possible bleeding noted in the nasogastric tubing and canister. I looked at the canister and the tubing and do not see any evidence of bright red blood or coffee-ground contents at the time. Gastric secretions were brownish in color. Would recommend restarting his tube feeding at a low rate, check residuals every 4 hours and if greater than 150 mL recommend holding tube feeding, keep head of the bed elevated at all times to prevent aspiration. We will monitor his hemoglobin and hematocrit and monitor for any further signs of bleeding. Further plans will be made according to progress. I have discussed this case with Dr. Kim and Dr. Kim has also seen the patient. Thank you for this consultation. Dictated by RENE Luu for Brent Kim MD cc: RENE Keyes MD [facility]
[2018-07-18] MEDS: LIPOSYN 20% 250 ML IV SCH (19:30)
[2018-07-19] MEDS: ATROVENT NEB INH SCH ×6 (03:22→23:18)
[2018-07-19] MEDS: XOPENEX NEB INH SCH ×6 (03:22→23:18)
[2018-07-19 05:32] LABS: ALLEN TEST YES; BE 6.5 mmoll (-3.0-3.0); BLOOD TYPE ARTERIAL; O2(CT) 15.8 mL/dL (15.0-23.0); O2HB 97.1 % (95.0-99.0); PCO2(98.6) 33 mmHg (35-45); PO2(98.6) 133 mmHg (60-100); SAMPLE BLOOD; SAO2 99.5 % (95.0-100.0); THB 11.4 g/dL (11.5-17.4); pH(98.6) 7.55 (7.35-7.45)
[2018-07-19 05:33] LABS: MODALITY BI PAP
[2018-07-19] MEDS: CLINIMIX E 4.25%-5% SOLUTION 1,000 ML IV SCH (06:33)
[2018-07-19 06:42] LABS: AGAP 10; ALB/GLOB RATIO 0.6; ALBUMIN 2.7 g/dL (3.5-5.0); ALKALINE PHOSPHATASE 57 U/L (32-122); BUN 25 mg/dL (8-22); CALCIUM 9.8 mg/dL (8.8-10.2); CHLORIDE 97 mmol/L (98-107); COSMO 272; CREATININE 0.7 mg/dL (0.7-1.2); ESTIMATED GFR > 60; GLUCOSE 115 mg/dL (70-104); GOT 30 U/L (10-34); GPT 22 U/L (10-44); PHOSPHORUS 3.6 mg/dL (2.7-4.5); POTASSIUM 3.5 mmol/L (3.5-5.1); PREALBUMIN 12.2 mg/dL (20-40); SODIUM 133 mmol/L (136-145); TCO2 26 mmol/L (25-35); TOTAL BILIRUBIN 0.15 mg/dL (0.20-1.00)
[2018-07-19] MEDS: MUCOMYST 10% INH SCH ×2 (07:41→19:50)
[2018-07-19] MEDS: ZYVOX 600 MG/D5W 600 MG/300 ML IVPB IV SCH ×2 (08:41→21:59)
[2018-07-19] MEDS: MAXIPIME 1 GM in NS 50 ML IV SCH (08:42)
[2018-07-19] MEDS ORDERED: ROBITUSSIN PO SCH (09:00)
[2018-07-19] MEDS: CENTRUM SILVER PO SCH (09:02)
[2018-07-19] MEDS: ZOCOR PO SCH (09:08)
[2018-07-19] MEDS: CELEXA PO SCH (09:08)
[2018-07-19] MEDS: PLAVIX PO SCH (09:08)
[2018-07-19] MEDS: VITAMIN B-1 PO SCH (09:08)
[2018-07-19] MEDS: LEVAQUIN 500 MG/D5W 500 MG/100 ML IVPB IV SCH (09:09)
[2018-07-19 10:14] LABS: HEMATOCRIT 32.7 % (42.0-52.0); HEMOGLOBIN 10.3 g/dL (14.0-18.0); MCH 31.9 PG (27-31); MCHC 31.5 g/dL (33-37); MCV 101.2 FL (81-99); MPV 8.8 FL (7.4-10.4); RBC 3.23 XMIL (4.7-6.1); RDW 14.2 % (11.5-14.5); WBC 15.83 X1000 (4.8-10.8)
--- NOTE | 2018-07-19 10:28 | PROGRESS NOTE ---
DATE: 07/19/2018 SUBJECTIVE: Patient is still sleepy, responds to verbal stimuli. Following basic commands. As per nursing staff, he is bringing up a lot of phlegm, most of the time greenish. Also gabbi- colored sputum noted as well. OBJECTIVE: Vital Signs: Temperature 98.8 degrees, heart rate 103, respiratory rate 27, blood pressure 165/107, O2 saturation 4 L nasal cannula. General Examination: This is a chronically ill-looking and frail, 73-year-old male, looking older than his stated age, lying in bed in no acute distress using a BiPAP mask. HEENT: Head is normocephalic, atraumatic. Mucous membranes dry. Facial asymmetry on the left side due to postsurgical treatment left jaw down. Neck: No JVD noted. No carotid bruit. There is an area that has been removed surgically on the left side. Cardiovascular exam: S1, S2 heard. Tachycardic. No murmurs, gallops, or rubs noted. Respiratory exam: Coarse breath sounds all over both pulmonary hunter with crackles as well. The patient is not using any accessory muscles or having work of breathing. Abdomen: Soft, nontender to palpation. No organomegaly. Extremities: No clubbing, cyanosis, or edema. Peripheral pulses present in both legs. Neurological exam: Patient continues to be sleepy, but responds to verbal stimuli. Moves 4 extremities spontaneously. LABORATORY DATA: There was no CBC from today, but BMP is unremarkable today. Prealbumin is 12.2. IMAGING STUDIES: CT of the chest showed multifocal bilateral bronchopneumonia worse in the right upper lobe and left lower lobe with bronchitis and mucous plugging of segmental airways with trace right pleural effusion. Insignificant hiatal hernia with the entire stomach up to the mediastinum. ASSESSMENT AND PLAN: 1. Acute hypoxemic and hypercapnic respiratory failure. The patient now is requiring oxygen by nasal cannula 4 liters/minute. ABG shows that this patient is tachypneic with respiratory alkalosis. The CT of the chest showed results as above. Currently, patient is on Zyvox day #5, cefepime day #5 and levofloxacin day #11, but I do not think he is improving. Family actually requested to have the CT. So, at this point we are going to consult Infectious Disease to see what else we can do for this patient. We will continue with breathing treatments and Mucomyst inhaler as well. 2. New onset of seizures likely secondary to alcohol withdrawal. That condition is stable. No more seizures reported. The patient continues to be on Librium and Ativan as needed. 3. History of cerebrovascular accident. We will continue with Plavix. 4. History of throat cancer with radiation around 30 years ago with radical neck resection, stable. 5. Depression. Patient is on Celexa. Will continue with the same medication. 6. Mild hyponatremia, resolved. 7. Possible gastrointestinal bleeding. Dr. Kim has been consulted. They are not planning to do any endoscopy at this time. There are no more signs of bleeding. At this point, we will continue to monitor complete blood count. 8. Nutritional status. Patient is malnourished with low prealbumin. Dr. Kim has decided to restart tube feedings. So far, he is receiving 15 mL/hour with no residuals. Will continue with the same management. 9. Physical deconditioning. Physical therapy has been consulted, but I do not think he is able to work with them yet. 10. Disposition: This patient will remain in the intensive care unit. Palliative care has been involved. I do think his prognosis is very poor. We will continue to monitor. cc: Elias Siu MD
[2018-07-19] MEDS: ROBITUSSIN NG SCH ×4 (11:32→22:00)
--- NOTE | 2018-07-19 12:26 | INFECTIOUS DISEASE CONSULT REP ---
DATE: 07/19/2018 CONCLUSION: Patient has a bilateral pneumonia. There may be a component of aspiration. The patient may have an immunoglobulin deficiency. RECOMMENDATIONS: I have discontinued cefepime and Levaquin, and have placed the patient on Zosyn. The patient also is receiving Zyvox for the past 4 days. I ordered immunoglobulin levels. DISCUSSION: The patient is unable to provide a history. The information I got was from the computer. He was admitted to the hospital. He had a seizure and he had started drinking alcohol again. His CBC shows a white count of 15,830, hemoglobin 10.3, and platelet count 478,000. Blood gases show a pH of 7.55, a PO2 of 133, and a pCO2 of 33. Creatinine is 0.7. GFR is greater than 60. Liver function studies are normal. Urinalysis showed red cells, but no white blood cells or bacteria. Swab for influenza was negative. Blood cultures are negative. CT scan of the chest shows a multifocal bilateral pneumonia and a large hiatal hernia. PAST MEDICAL HISTORY: Positive for benign prostatic hypertrophy, and he had a TURP and placement of a suprapubic catheter. The catheter has been removed. The patient has had 2 strokes. He also has had hypertension. He had throat cancer approximately 30 years ago and required radiation and radical neck dissection. The patient has had frequent incidences of melanoma with multiple excisions. The patient is an alcoholic. Hyperlipidemia and large hiatal hernia PAST SURGICAL HISTORY: Positive for multiple skin cancers that were removed. He has had a TURP in May of 2017. He had a suprapubic catheter placed, but it has been removed. He has had a radical neck resection along with a left carotid stent that occluded. The patient had a cerebral reverse flow procedure. The patient has also had an umbilical hernia repair. SOCIAL HISTORY: The patient is alcoholic. As mentioned above, he does not have a history of smoking. He denied having any illicit drug use. He lives at home with his , and he has a dog and a cat for a pet. FAMILY HISTORY: Positive for diabetes mellitus, Alzheimer disease, myocardial infarction. ALLERGIES: He has no known drug allergies. HOME MEDICATIONS: Home medications include Celexa, Plavix, Prinivil, metoprolol , prednisone, and simvastatin. PHYSICAL EXAMINATION: Vital Signs: Temperature is 99 degrees, pulse 84, respirations 18, blood pressure 152/97. The patient is 5 feet 8 inches tall. He weighs 185 pounds. General: This is a chronically ill-appearing and somewhat malnourished-appearing, elderly male. He is in no acute distress. Head, eyes, ears, nose, and throat: He can see near objects. He can hear my spoken words. He has had surgical resection of most of the mandible on the left side. Neck: No meningismus. Lungs: There were bilateral rhonchi. Cardiovascular: Heart rate is regular. Abdomen: Soft and nontender. Neurologic: The patient is lethargic. He followed request to move his extremities. There was no tremor. Integument: No rash noted. Thank you for the consult. cc: Luis Daniel Stevenson MD MTDD
--- NOTE | 2018-07-19 14:55 | PROGRESS NOTE ---
DATE: 07/19/2018 SUBJECTIVE: Patient is more awake today at the time of evaluation. His son is at the bedside. The patient currently has BiPAP off and O2 by nasal cannula. He did follow commands. He did not speak, but when I asked him how he was feeling, he gave to me a thumbs up. There has been no evidence of hematemesis or blood in the stool. He is tolerating low rate tube feeding by nasogastric tube. OBJECTIVE: Vital Signs: Temperature 98.8 degrees, pulse 84, respirations 18, blood pressure 152/97. General: Patient is awake and alert. LABORATORY: Hematology: WBC 15.83, hemoglobin 10.3, hematocrit 32.7, MCV 101.2, platelets 478,000. Chemistry: Sodium 133, potassium 3.5, chloride 97, CO2 26, BUN 25, creatinine 0.7, glucose 115, total bilirubin 0.15, AST 30, ALT 22, alkaline phosphatase 57. ASSESSMENT AND PLAN: 1. Acute respiratory failure. Patient is off of BiPAP at present time with O2 by nasal cannula. Patient is receiving respiratory therapy. 2. New onset seizure activity, most likely related to alcohol withdrawal. Patient is receiving Librium and Ativan as needed. 3. Possibility of gastrointestinal bleeding. There has been no evidence of bleeding today. Hemoglobin and hematocrit are stable and hemoglobin and hematocrit have actually improved today. 4. Nutritional status. Patient is receiving low rate tube feedings by nasogastric tube. Continue to follow anti-reflux measures, keeping head of bed elevated at all times. Check residuals and hold if greater than 150. Will continue to follow during his hospital course and further plans will be made according to his progress. I have discussed this case with Dr. Kim. Dictated by RENE Luu for Brent Kim MD cc: RENE Keyes MD
[2018-07-19] MEDS: ZOSYN 4.5 GM in NS 100 ML IV SCH ×2 (14:58→17:15)
[2018-07-19] MEDS: TYLENOL PO PRN (15:31)
[2018-07-19] MEDS ORDERED: ATIVAN IV ONE (21:54)
[2018-07-20] MEDS: ZOSYN 4.5 GM in NS 100 ML IV SCH ×5 (00:11→23:39)
[2018-07-20] MEDS: ROBITUSSIN NG SCH ×6 (02:12→21:51)
[2018-07-20] MEDS: XOPENEX NEB INH SCH ×6 (03:22→23:30)
[2018-07-20] MEDS: ATROVENT NEB INH SCH ×6 (03:22→23:30)
[2018-07-20 04:40] LABS: ALLEN TEST YES; BE 5.3 mmoll (-3.0-3.0); BLOOD TYPE ARTERIAL; METHB 1.5 % (0.0-1.5); O2(CT) 14.6 mL/dL (15.0-23.0); O2HB 95.4 % (95.0-99.0); PCO2(98.6) 43 mmHg (35-45); PO2(98.6) 101 mmHg (60-100); SAMPLE BLOOD; SAO2 98.8 % (95.0-100.0); THB 10.8 g/dL (11.5-17.4); pH(98.6) 7.45 (7.35-7.45)
[2018-07-20 04:41] LABS: MODALITY CANNULA
[2018-07-20 04:54] LABS: HEMATOCRIT 31.5 % (42.0-52.0); HEMOGLOBIN 10.1 g/dL (14.0-18.0); MCHC 32.1 g/dL (33-37); MCV 99.7 FL (81-99); MPV 8.6 FL (7.4-10.4); RBC 3.16 XMIL (4.7-6.1); RDW 13.8 % (11.5-14.5); WBC 15.16 X1000 (4.8-10.8)
[2018-07-20 06:02] LABS: AGAP 11; BUN 18 mg/dL (8-22); CALCIUM 9.7 mg/dL (8.8-10.2); CHLORIDE 98 mmol/L (98-107); COSMO 274; CREATININE 0.7 mg/dL (0.7-1.2); ESTIMATED GFR > 60; GLUCOSE 109 mg/dL (70-104); POTASSIUM 3.3 mmol/L (3.5-5.1); SODIUM 136 mmol/L (136-145); TCO2 27 mmol/L (25-35)
[2018-07-20] MEDS: MUCOMYST 10% INH SCH ×2 (07:29→19:35)
[2018-07-20] MEDS: ZOCOR PO SCH (08:46)
[2018-07-20] MEDS: CENTRUM SILVER PO SCH (08:46)
[2018-07-20] MEDS: VITAMIN B-1 PO SCH (08:46)
[2018-07-20] MEDS: ZYVOX 600 MG/D5W 600 MG/300 ML IVPB IV SCH ×2 (08:46→21:05)
[2018-07-20] MEDS: PLAVIX PO SCH (08:47)
[2018-07-20] MEDS: CELEXA PO SCH (08:47)
--- NOTE | 2018-07-20 11:14 | PROGRESS NOTE ---
DATE: 07/20/2018 SUBJECTIVE: The patient definitely is more awake and alert. He is able to have a conversation with me slow but definitely better in comparing with yesterday. According to nursing staff, he is still bringing some gabbi colored sputum noted. No other issues noted. OBJECTIVE: Vital Signs: Temperature 98.4 degrees, heart rate 105, respiratory rate 25, blood pressure 171/109, and O2 saturation 97% on 2 L nasal cannula. General: This is a chronically ill appearing and frail 73-year-old male looking older than his stated age lying in bed in no acute distress. HEENT: Head is normocephalic, atraumatic. Mucous membranes dry. Patient have an NG tube. The patient had asymmetry noted on the left side due to post surgical treatment. Left toe is down. Neck: No JVD noted. No carotid bruits. There is an area that has been surgically removed on the left side. Cardiovascular: S1, S2 heard. No murmurs, gallops, or rubs. Regular rate and rhythm. Respiratory: Still some coarse breath sounds noted in both pulmonary bases as well as some crackles. Patient is not using any accessory muscles or having work up breathing. Abdomen: Soft, nontender to palpation. Bowel sounds present. No organomegaly. Extremities: No clubbing cyanosis, or edema. Peripheral pulses present in both legs. Neurological: Patient is definitely more awake and alert. Moves 4 extremities. LABORATORY DATA: White cell count 15.16, hemoglobin 10.1, hematocrit 31.5 and platelets 456,000. ABG shows pH 7.45, with pCO2 43, and PO2 101. Potassium 3.3. ASSESSMENT AND PLAN: 1. Acute hypoxemic and hypercapnic respiratory failure. Patient requiring now oxygen by nasal cannula at 2 L/minute. Definitely, his oxygen needs are going down. We will continue with breathing treatments and oxygen supplementation. 2. Bilateral pneumonia possible to aspiration. Patient's white cell count is still elevated. The patient now is on Zosyn day #1, and Zyvox day #5. Dr. Stevenson from Infectious Disease is following this patient. We have checked hemoglobin's on him and those are normal. 3. New onset seizures likely secondary to alcohol withdrawal. Since admission, this patient has not had any more episodes of seizures. We will continue with Librium and Ativan as needed. 4. Possible gastrointestinal bleeding. There was a concern 3 days ago but so far hemoglobin has been stable. Gastroenterology has been consulted, but they are not planning to do any procedure yet. I do not think he will need any as an inpatient. As of now, we will continue to monitor CBC daily. 5. Nutritional status. Patient is malnourished with low pre albumin. The patient is receiving tube feedings. Because patient is more awake and alert, we are going to repeat swallow test, and see if he passed. We will start a clear liquid diet and will advance diet as tolerated. 6. History of throat cancer with radiation and radical neck resection aware. 7. Physical deconditioning. We have put another consult for physical therapy because I think at this point, patient is able to work with them. 8. Disposition: The patient is definitely getting better. We will see if he passed swallow test to start clear liquids. I think if he continues to improve like he is doing today, he can be sent to a regular room tomorrow. We will continue to monitor this patient closely. cc: Elias Siu MD
[2018-07-20] MEDS: POTASSIUM CHLORIDE 20% LIQUID MISC PRN (12:19)
--- NOTE | 2018-07-20 12:59 | Diag Imaging Result Doc PS360 ---
EXAM: BA SWALLOW W/VIDEO SPEECH THER 07/20/2018 HISTORY: swallow problems TECHNIQUE: 240 images. COMMENT: The patient had difficulty sucking the barium through a straw and barium was subsequently administered by a catheter tip syringe. There is trace aspiration. This elicits and almost immediate cough reflex. The hypopharynx is somewhat patulous in appearance. There is no evidence of obstruction in the esophagus. IMPRESSION: Aspiration. Decreased tone in the hypopharynx. Electronically signed by Robson Rush 07/20/2018 12:56 PM
--- NOTE | 2018-07-20 20:20 | INFECTIOUS DISEASE PROGRESS NO ---
DATE: 07/20/2018 PRESENT ILLNESS: The patient has bilateral pneumonia, which appears to be due to aspiration. MEDICATIONS: The patient is on a combination of Zyvox and Zosyn. PHYSICAL EXAMINATION: Vital Signs: Temperature is 100 degrees, pulse 107, respirations 12, blood pressure 148/105. General: This is an ill-appearing elderly male. He is very lethargic. Head, Eyes, Ears, Nose, and Throat: No drainage is noted from the nose or the ears. The patient has poor oral hygiene. I did not see any white patches on his tongue. He is missing most of his left mandible due to surgery. Lungs: There were bilateral rhonchi. Cardiovascular : Heart rate is regular. Abdomen: Soft and nontender. Neurologic: The patient is lethargic. He did open his eyes and open his mouth on request. LAB AND X-RAY: CBC today shows a white count of 15,160, hemoglobin 10.1, and platelet count 456,000. Creatinine 0.7. GFR is greater than 60. Blood gases show a pH of 7.45, a PO2 of 101, and a pCO2 of 43. IgG is 1260. IgA is 452. Swallow study on the patient today showed that he is aspirating. ASSESSMENT AND PLAN: The patient has aspiration pneumonia. I plan to continue with Zyvox and Zosyn. Possibly, the patient will need to be made NPO because of aspiration. COMORBIDITIES: Elderly, throat cancer treated with radical neck surgery and radiation, alcoholic. cc: Luis Daniel Stevenson MD MTDD
[2018-07-20] MEDS: ATIVAN IV SCH (20:35)
[2018-07-21] MEDS: ROBITUSSIN NG SCH ×6 (01:29→22:12)
[2018-07-21] MEDS: ATROVENT NEB INH SCH ×6 (03:50→23:43)
[2018-07-21] MEDS: XOPENEX NEB INH SCH ×6 (03:50→23:35)
[2018-07-21 05:25] LABS: ALLEN TEST YES; BE 3.2 mmoll (-3.0-3.0); BLOOD TYPE ARTERIAL; HCO3-(ACT) 27.3 mmoll (20.0-26.0); METHB 1.2 % (0.0-1.5); O2HB 92.7 % (95.0-99.0); PCO2(98.6) 45 mmHg (35-45); PO2(98.6) 71 mmHg (60-100); SAMPLE BLOOD; SAO2 95.9 % (95.0-100.0); THB 14.6 g/dL (11.5-17.4); pH(98.6) 7.41 (7.35-7.45)
[2018-07-21 05:26] LABS: MODALITY BI PAP
[2018-07-21] MEDS: ZOSYN 4.5 GM in NS 100 ML IV SCH ×4 (05:41→23:33)
[2018-07-21 05:58] LABS: HEMATOCRIT 31.2 % (42.0-52.0); HEMOGLOBIN 9.9 g/dL (14.0-18.0); MCH 32.1 PG (27-31); MCHC 31.7 g/dL (33-37); MCV 101.3 FL (81-99); MPV 8.9 FL (7.4-10.4); RBC 3.08 XMIL (4.7-6.1); WBC 13.93 X1000 (4.8-10.8)
--- NOTE | 2018-07-21 06:46 | Diag Imaging Result Doc PS360 ---
EXAM: CHEST-1 VIEW HISTORY: SOB TECHNIQUE: Portable chest single view COMPARISON: 07/18/2018 FINDINGS: Poor inspiratory effort. The heart is not enlarged considering portable technique. There is mild central vascular prominence. No consolidation. Overall the interstitial markings are slightly less pronounced. No pleural effusions identified. IMPRESSION: Mild interval improvement. Electronically signed by Aleksandar Martinez 07/21/2018 6:43 AM
[2018-07-21] MEDS: MUCOMYST 10% INH SCH ×2 (08:02→19:35)
--- NOTE | 2018-07-21 08:20 | Diag Imaging Result Doc PS360 ---
EXAM: CHEST/ABD TUBE PLACEMENT - 07/21/2018 HISTORY: NGT placement TECHNIQUE: Portable exam for nasogastric tube placement COMPARISON: Prior chest radiograph from 07/21/2018 FINDINGS: There are artifacts from motion which limit detail. The nasogastric tube appears to extend into the proximal stomach. IMPRESSION: Limited detail due to artifacts from motion. The nasogastric tube appears to extend into the proximal stomach. Electronically signed by Darío Ridley 07/21/2018 8:18 AM
[2018-07-21] MEDS: ZYVOX 600 MG/D5W 600 MG/300 ML IVPB IV SCH ×2 (09:00→19:50)
[2018-07-21] MEDS: ZOCOR PO SCH (09:00)
[2018-07-21] MEDS: CENTRUM SILVER PO SCH (09:15)
[2018-07-21] MEDS: VITAMIN B-1 PO SCH (09:16)
[2018-07-21] MEDS: PLAVIX PO SCH (09:16)
[2018-07-21] MEDS: CELEXA PO SCH (09:16)
[2018-07-21] MEDS: HALDOL IV PRN ×2 (09:52→22:44)
--- NOTE | 2018-07-21 10:23 | PROGRESS NOTE ---
DATE: 07/21/2018 SUBJECTIVE: The patient has been restless overnight according to nursing staff. He pulled out the NG tube and IV access. Now, he is sleepier because he received medication for sedation. OBJECTIVE: Vital Signs: Temperature 99 degrees, heart rate 108, respiratory rate 28, blood pressure 157/88, and O2 saturation 97% on BiPAP. General: This is a chronically ill appearing and frail 73-year-old male looking older than his stated age lying in bed in no acute distress. HEENT: Head is normocephalic, atraumatic. Mucous membranes dry. Patient has an NG tube. The patient had asymmetry noted on the left side of the face due to postsurgical treatment left face is down. Neck: No JVD noted. No carotid bruits. There is an area that has been surgically removed on the left side. Cardiovascular: S1, S2 heard. No murmurs , gallops, or rubs. Regular rate and rhythm. Respiratory: Coarse breath sounds still noted in both pulmonary bases. The patient denies using any accessory muscles or having chronic work of breathing. Abdomen: Soft. Nontender to palpation. Bowel sounds present. No organomegaly. Extremities: No clubbing, cyanosis, or edema. Peripheral pulses present in both legs. Neurological: Patient is definitely sleepier. Does not follow any commands. LABORATORY DATA: White cell count 13.93, hemoglobin 9.9, hematocrit 31.2, and platelets 483,000 with an ABG that shows pH 7.41 with pCO2 45 and PO2 71. ASSESSMENT AND PLAN: 1. Acute hypoxemic hypercapnic respiratory failure. The patient continues to require now on BiPAP again. Patient was requiring nasal cannula at 2 L/minute yesterday. Pulmonary following this patient. We will follow recommendations. 2. Bilateral pneumonia secondary to aspiration. White cell count is getting better. The patient is on Zosyn day #2 and Zyvox day #6. Dr. Stevenson from Infectious Disease is following along with this patient. 3. New onset seizures likely secondary to alcohol withdrawal. Stable since admission. This patient has not had any more episodes of seizure. We need to monitor this patient closely. 4. Possible gastrointestinal bleeding. There is no longer a concern. Hemoglobin has been stable. We will continue to monitor CBC daily. 5.Nutritional status. Patient is malnourished. Patient has failed his barium swallow study so I think at this point he could be a candidate for PEG tube considering that he has recurrent aspiration. We will see what GI has to say. 6. History of throat cancer with radiation and radical neck resection aware. 7. Physical deconditioning. I think today considering that he is very sleepy, I do not think he is going to be able to work with physical therapy today. 8. Disposition. At this point, patient is not doing good. We will see if he is more calmed down with the medication we have provided. We will continue to monitor this patient closely. cc: Elias Siu MD MTD
--- NOTE | 2018-07-21 14:56 | PROGRESS NOTE ---
DATE: 07/21/2018 SUBJECTIVE: The patient is currently resting. He has received sedation. He had been agitated. His was at the bedside. I have spoken with her. OBJECTIVE: Vital Signs: Temperature 98.8 degrees, pulse 102, respirations 21, blood pressure 138/76. General: Patient is resting at present time. He has been agitated and has received some sedation. He has an NG tube with low rate feeding infusing with no difficulty. LABORATORY: Hematology. WBC 13.93, hemoglobin 9.9, hematocrit 31.2, MCV 101.3, platelets 43,000. Chemistry. Sodium 136, potassium 4.1, chloride 98, CO2 27, BUN 18, creatinine 0.7, glucose 109. ASSESSMENT AND PLAN: 1. Acute respiratory failure. Patient is now on oxygen by nasal cannula. 2. Pneumonia with recent aspiration. Continue antibiotics. 3. New onset seizures most likely secondary to alcohol withdrawal. 4. Questionable gastrointestinal bleed with no evidence of active bleeding. Hemoglobin and hematocrit are stable. Will continue to follow. 5. Nutritional requirement. The patient is currently receiving nutrition by nasogastric tube feedings. I believe he has failed his swallow evaluation. I have discussed with the options. Will continue to follow and see if his mental status improves and then in turn hopefully improve his swallowing. If not, patient may require a PEG tube. I have discussed this with the . Will continue to follow and further plans to be made according to his progress. I have discussed this case with Dr. Kim. Dictated by RENE Luu for Brent Kim MD cc: RENE Keyes MD
--- NOTE | 2018-07-21 19:04 | INFECTIOUS DISEASE PROGRESS NO ---
DATE: 07/21/2018 PRESENT ILLNESS: The patient, I thought initially had an aspiration pneumonia. Today's x-ray seems to show no consolidation. The patient unfortunately still has leukocytosis. MEDICATIONS: The patient is on Zyvox and Zosyn. PHYSICAL EXAMINATION: Vital Signs: Temperature is 97.9, pulse 102, respirations 21, blood pressure is 156/86. General: This is an ill-appearing, elderly male. He is sleeping. HEENT: No drainage noted from the nose or ears. The patient is missing most of his left mandible due to surgery. Lungs: There were scattered rhonchi bilaterally. Cardiovascular: Heart rate is regular. Abdomen: Soft and nontender. Neurologic: As mentioned above, patient is sleeping. He did not respond to verbal stimuli. LAB AND X-RAY: Chest x-ray said there is no consolidation. CBC shows a white count of 13,930, hemoglobin 9.9, platelet count 483,000. Creatinine 0.7. Blood gases show a pH of 7.41, a pO2 of 71, and a pCO2 of 45. ASSESSMENT AND PLAN: I think the patient's aspiration pneumonia is clearing. He still unfortunately has a leukocytosis. For now, I am going to continue the antibiotics and if by the first of next week, most likely stop them. COMORBIDITIES: The patient is elderly. He has had throat cancer treated with radical neck surgery and radiation. He also is an alcoholic. cc: Luis Daniel Stevenson MD
[2018-07-21] MEDS: ATIVAN IV SCH (21:28)
[2018-07-22] MEDS ORDERED: PHENOBARBITAL IV ONE (00:39)
[2018-07-22] MEDS: ATROVENT NEB INH SCH ×6 (03:35→23:35)
[2018-07-22] MEDS: XOPENEX NEB INH SCH ×6 (03:35→23:35)
[2018-07-22] MEDS: HALDOL IV PRN ×3 (04:33→19:43)
[2018-07-22] MEDS: ROBITUSSIN NG SCH ×6 (04:34→20:23)
[2018-07-22 04:46] LABS: ALLEN TEST YES; BE 4.8 mmoll (-3.0-3.0); BLOOD TYPE ARTERIAL; HCO3-(ACT) 28.7 mmoll (20.0-26.0); METHB 0.9 % (0.0-1.5); O2(CT) 13.5 mL/dL (15.0-23.0); O2HB 97.3 % (95.0-99.0); PCO2(98.6) 49 mmHg (35-45); PO2(98.6) 120 mmHg (60-100); SAMPLE BLOOD; SAO2 99.9 % (95.0-100.0); THB 9.7 g/dL (11.5-17.4)
[2018-07-22 04:48] LABS: MODALITY CANNULA
[2018-07-22 05:03] LABS: HEMATOCRIT 29.5 % (42.0-52.0); HEMOGLOBIN 9.2 g/dL (14.0-18.0); MCH 31.5 PG (27-31); MCHC 31.2 g/dL (33-37); MPV 8.6 FL (7.4-10.4); RBC 2.92 XMIL (4.7-6.1); RDW 13.9 % (11.5-14.5); WBC 12.04 X1000 (4.8-10.8)
[2018-07-22] MEDS: ZOSYN 4.5 GM in NS 100 ML IV SCH ×3 (06:08→17:12)
[2018-07-22] MEDS: POTASSIUM CHLORIDE 20% LIQUID MISC PRN (06:38)
[2018-07-22] MEDS: MUCOMYST 10% INH SCH ×2 (08:17→19:40)
[2018-07-22] MEDS: CELEXA PO SCH (08:23)
[2018-07-22] MEDS: ZOCOR PO SCH (08:23)
[2018-07-22] MEDS: CENTRUM SILVER PO SCH (08:23)
[2018-07-22] MEDS: ZYVOX 600 MG/D5W 600 MG/300 ML IVPB IV SCH ×2 (08:23→19:43)
[2018-07-22] MEDS: VITAMIN B-1 PO SCH (08:24)
[2018-07-22] MEDS: PLAVIX PO SCH (08:24)
--- NOTE | 2018-07-22 11:29 | PROGRESS NOTE ---
DATE: 07/22/2018 SUBJECTIVE: The patient according to nursing staff has been restless overnight. Again, we need to provide phenobarbital and currently he is on physical restraints. Upon my examination today of course he is still sleepy. OBJECTIVE: Vital Signs: Temperature 97, heart rate 91, respiratory rate 26, blood pressure 162/102 and O2 saturation 94% on 2 L nasal cannula. This is a chronically ill appearing and frail 73-year-old male looking older than his stated age lying in bed in no acute distress. HEENT: Head is normocephalic, atraumatic. Mucous membranes very dry. Patient has an NG tube in place. The patient had asymmetry noted on the left side of the face due to post surgical treatment with the left face down. Neck: No JVD noted. No carotid bruits. No lymphadenopathy. There is an area that has been surgically removed on the left side. Cardiovascular: S1, S2 heard. No murmurs, gallops, or rubs. Regular rate and rhythm. Respiratory: Breath sounds still noted in both pulmonary bases anteriorly and posteriorly. The patient is not using any accessory muscles or having work of breathing. Abdomen: Nontender with palpation. Bowel sounds present. No organomegaly. Extremities: No clubbing, cyanosis, or edema. Peripheral pulses present in both legs. Neurological: Patient is sleepier. Does not follow any commands. LABORATORY DATA: White cell count 12.04, hemoglobin 9.2, hematocrit 29.5, and platelets 467,000 with ABG that shows pH 7.42 with pCO2 49 and PO2 120. ASSESSMENT AND PLAN: 1. Acute hypoxemic and hypercarbic respiratory failure. Now, his oxygen needs are getting better. He is requiring 2 L of oxygen by nasal cannula. He continues to be like that. Pulmonary is following this patient. We will follow recommendations. 2. Bilateral pneumonia secondary to aspiration. White cell count continues to improve this. Today, it is almost back to normal so at this point we will continue with Zosyn day #3 and Zyvox daily. 3. Dr. Stevenson from Infectious Disease is directing antibiotics. We will follow recommendations. 4. New onset seizures likely secondary to alcohol withdrawal. Patient has been stable from that standpoint. 5. Possible gastrointestinal bleeding. At this point, we do think that it is no longer our concern. Hemoglobin continues to be stable. We will continue to monitor. 6. Nutritional status. The patient has failed his barium swallow, and GI is on board. They are okay that he may need down the road to have PEG tube placed. We will see what family has to say. 7. History of throat cancer with radiation and radical neck resection. Aware. 8. Physical deconditioning. I do not think he will be able to participate in any physical therapy recommended for him. 9. Disposition: Of course at this point, we will continue to monitor this patient in the intensive care unit. cc: Elias Siu MD
[2018-07-22 12:36] LABS: AGAP 10; BUN 12 mg/dL (8-22); CALCIUM 9.2 mg/dL (8.8-10.2); CHLORIDE 105 mmol/L (98-107); COSMO 281; CREATININE 0.7 mg/dL (0.7-1.2); ESTIMATED GFR > 60; GLUCOSE 99 mg/dL (70-104); POTASSIUM 3.6 mmol/L (3.5-5.1); SODIUM 141 mmol/L (136-145); TCO2 26 mmol/L (25-35)
--- NOTE | 2018-07-22 15:04 | PROGRESS NOTE ---
DATE: 07/22/2018 SUBJECTIVE: Patient is resting. He has had sedation. Per nurse report, he has been very agitated overnight and during the day. is at the bedside. OBJECTIVE: Vital Signs: Temperature 97.5 degrees, pulse respirations 24, blood pressure 126/83. General: The patient is resting now. He has received sedation. LABORATORY DATA: Hematology: CBC 12.04, hemoglobin 9.2, hematocrit 29.5, MCV 101.0. Chemistry: Sodium 141, potassium 3.6, chloride 105, CO2 26, BUN 12, creatinine 0.7 glucose 99. ASSESSMENT AND PLAN: 1. Acute respiratory failure. Patient is now on O2 by nasal cannula. 2. Pneumonia, on antibiotics. 3. New onset seizures, most likely secondary to alcohol withdrawal. 4. Nutritional requirements. Patient had failed swallow test with speech modified barium swallow showing aspiration and decreased tone in the hypopharynx. Patient is currently receiving tube feedings by nasogastric tube. He seems to be tolerating the tube feedings. Will continue to monitor. Patient continues to require tube feedings and may have to have a PEG tube placed. I have discussed that option with his . Further plans to be made according to patient's progress. I have discussed this case with Dr. Kim. Dictated by RENE Luu for Brent Kim MD cc: RENE Keyes MD [facility]
[2018-07-23] MEDS: ZOSYN 4.5 GM in NS 100 ML IV SCH ×4 (00:48→17:02)
[2018-07-23] MEDS: ROBITUSSIN NG SCH ×6 (00:49→20:38)
[2018-07-23] MEDS: HALDOL IV PRN ×3 (00:49→13:32)
[2018-07-23] MEDS: XOPENEX NEB INH SCH ×6 (03:00→23:47)
[2018-07-23] MEDS: ATROVENT NEB INH SCH ×6 (03:00→23:47)
[2018-07-23 05:10] LABS: ALLEN TEST YES; BE 4.2 mmoll (-3.0-3.0); BLOOD TYPE ARTERIAL; HCO3-(ACT) 28.2 mmoll (20.0-26.0); METHB 1.3 % (0.0-1.5); O2(CT) 13.3 mL/dL (15.0-23.0); O2HB 96.3 % (95.0-99.0); PCO2(98.6) 45 mmHg (35-45); PO2(98.6) 102 mmHg (60-100); SAMPLE BLOOD; SAO2 100.4 % (95.0-100.0); THB 9.7 g/dL (11.5-17.4); pH(98.6) 7.42 (7.35-7.45)
[2018-07-23 05:12] LABS: MODALITY CANNULA
[2018-07-23 06:27] LABS: HEMATOCRIT 29.4 % (42.0-52.0); HEMOGLOBIN 9.2 g/dL (14.0-18.0); MCH 32.2 PG (27-31); MCHC 31.3 g/dL (33-37); MCV 102.8 FL (81-99); MPV 8.8 FL (7.4-10.4); RBC 2.86 XMIL (4.7-6.1); RDW 13.9 % (11.5-14.5); WBC 11.12 X1000 (4.8-10.8)
[2018-07-23 06:48] LABS: AGAP 10; BUN 10 mg/dL (8-22); CALCIUM 9.6 mg/dL (8.8-10.2); CHLORIDE 107 mmol/L (98-107); COSMO 286; CREATININE 0.8 mg/dL (0.7-1.2); ESTIMATED GFR > 60; GLUCOSE 107 mg/dL (70-104); POTASSIUM 3.3 mmol/L (3.5-5.1); SODIUM 144 mmol/L (136-145); TCO2 27 mmol/L (25-35)
[2018-07-23] MEDS: ZYVOX 600 MG/D5W 600 MG/300 ML IVPB IV SCH ×2 (07:34→20:37)
[2018-07-23] MEDS: POTASSIUM CHLORIDE 20% LIQUID MISC PRN (07:34)
[2018-07-23] MEDS: VITAMIN B-1 PO SCH (07:59)
[2018-07-23] MEDS: CENTRUM SILVER PO SCH (07:59)
[2018-07-23] MEDS: CELEXA PO SCH (08:00)
[2018-07-23] MEDS: ZOCOR PO SCH (08:00)
[2018-07-23] MEDS: PLAVIX PO SCH (08:00)
--- NOTE | 2018-07-23 08:00 | Diag Imaging Result Doc PS360 ---
EXAM: CHEST-1 VIEW - 07/23/2018 HISTORY: SOB TECHNIQUE: Portable chest COMPARISON: 07/21/2018 FINDINGS: There is mild cardiomegaly. There is some prominence of vascular markings. There is possible tiny right pleural effusion. There is no dense consolidation or pneumothorax identified. There is mild cardiomegaly. There is a nasogastric tube which can be followed to approximately the gastroesophageal junction, the distal end is obscured by artifacts. IMPRESSION: Mild cardiomegaly. Apparent vascular congestion. No discrete pneumonia. Electronically signed by Darío Ridley 07/23/2018 7:58 AM
[2018-07-23] MEDS: MUCOMYST 10% INH SCH ×2 (08:09→19:20)
--- NOTE | 2018-07-23 10:04 | PROGRESS NOTE ---
DATE: 07/23/2018 SUBJECTIVE: The patient has been restless overnight. He has received Haldol and that medication controlled him. OBJECTIVE: Vital Signs: Temperature 97.4 degrees, heart rate 93, respiratory rate 21, blood pressure 131/75, O2 saturation 96% on 2 L nasal cannula. General Examination: This is a chronically ill-looking, 73-year-old male, lying in bed, in no acute distress. HEENT: Head is normocephalic, atraumatic. Mucous membranes very dry. The patient continues to have an NG tube in place and there is asymmetry noted in the left side of the face due to postsurgical treatment of neck cancer. Neck: No JVD noted. No carotid bruits. No lymphadenopathy. There is an area that has been surgically removed on the left side. Cardiovascular: S1 , S2 heard. No murmurs, gallops, or rubs. Regular rate and rhythm. Respiratory: Coarse his breath sounds noted in both pulmonary bases. The patient is not using any accessory muscles or having work of breathing. Abdomen: A little bit distended, but nontender to palpation. Bowel sounds present. No organomegaly. Extremities: No clubbing, cyanosis, or edema. Peripheral pulses present in both legs. Neurological: Patient is sleepy, definitely. He has received 1 dose of Haldol. Does not follow any commands. LABORATORY DATA: White cell count 11.2, hemoglobin 9.2, hematocrit 29.4, platelets 511,000. ABG shows pH 7.42, with pCO2 45, PO2 102. BMP remarkable for potassium 3.3. ASSESSMENT AND PLAN: 1. Acute hypoxemic and hypercarbic respiratory failure. Oxygen needs have stabilized and he is requiring 2 L of oxygen by nasal cannula. I think we will continue with the same management. 2. Bilateral pneumonia secondary to aspiration. White cell count is basically the same in comparing with yesterday. The patient is on Zosyn and Zyvox. Will continue with same management. Dr. Stevenson from Infectious Disease is directing antibiotics. We will follow recommendations. 3. New onset seizure secondary to alcohol withdrawal. The patient is stable from that standpoint. 4. Possible gastrointestinal bleeding. That concern has resolved. 5. Nutritional status. At this point, because this patient failed the swallow test he is going to need a PEG tube. We will see when Dr. Kim wants to do that procedure. 6. History of throat cancer with radiation and radical neck resection. Aware. 7. Physical deconditioning. Aware. 8. Disposition. At this point, we will continue to keep this patient in the intensive care unit. cc: Elias Siu MD MTDD
[2018-07-23] MEDS: ROBAXIN PO PRN (10:30)
--- NOTE | 2018-07-23 13:54 | PROGRESS NOTE ---
DATE: 07/23/2018 Mr. Argueta is resting comfortably. He is tolerating his tube feeding well. Denies any abdominal pain.Abdomen: Full, soft, nontender. Bowel sounds are audible. LABORATORIES: Reviewed which showed WBC 11.12, hemoglobin 9.2, hematocrit 29.4. He is off BiPAP and currently on nasal cannula. IMPRESSION: Dysphagia. He has failed swallowing studies and would benefit from alternate mode of nutrition such as PEG tube. At this point, however, I would consider this a high risk procedure, that is endoscopy which would require him to be sedated. Again I would continue tube feeding where he has an NG tube in place and he is tolerating it very well now. Continue to get him better and then once stable enough for me to proceed with endoscopy with sedation, we will do so if he continues to require alternate mode of nutrition. I have explained my plans and findings to the patient and his , who was present at bedside. They understood and agreed with that plan. cc: Brent Kim MD
[2018-07-23] MEDS ORDERED: STERILE WATER INJ. INJ ONE (16:51)
[2018-07-23] MEDS: STERILE WATER INJ. INJ PRN (17:02)
[2018-07-23] MEDS: GEODON IM PRN (17:02)
[2018-07-23] MEDS ORDERED: STERILE WATER INJ. ONE (17:04)
[2018-07-24] MEDS: ROBITUSSIN NG SCH ×6 (00:14→22:00)
[2018-07-24] MEDS: ZOSYN 4.5 GM in NS 100 ML IV SCH ×3 (00:14→14:42)
[2018-07-24] MEDS: HALDOL IV PRN (00:17)
[2018-07-24] MEDS: XOPENEX NEB INH SCH ×6 (03:45→23:45)
[2018-07-24] MEDS: ATROVENT NEB INH SCH ×6 (03:45→23:45)
[2018-07-24 04:57] LABS: ALLEN TEST YES; BE 3.8 mmoll (-3.0-3.0); BLOOD TYPE ARTERIAL; HCO3-(ACT) 27.9 mmoll (20.0-26.0); METHB 0.9 % (0.0-1.5); O2(CT) 17.5 mL/dL (15.0-23.0); O2HB 95.9 % (95.0-99.0); PCO2(98.6) 49 mmHg (35-45); PO2(98.6) 95 mmHg (60-100); SAMPLE BLOOD; SAO2 98.5 % (95.0-100.0); THB 12.9 g/dL (11.5-17.4); pH(98.6) 7.39 (7.35-7.45)
[2018-07-24 05:00] LABS: MODALITY CANNULA
[2018-07-24 06:49] LABS: HEMATOCRIT 29.6 % (42.0-52.0); HEMOGLOBIN 9.2 g/dL (14.0-18.0); MCH 32.3 PG (27-31); MCHC 31.1 g/dL (33-37); MCV 103.9 FL (81-99); MPV 8.7 FL (7.4-10.4); RBC 2.85 XMIL (4.7-6.1); RDW 14.2 % (11.5-14.5); WBC 8.24 X1000 (4.8-10.8)
[2018-07-24 07:11] LABS: AGAP 11; BUN 7 mg/dL (8-22); CALCIUM 9.7 mg/dL (8.8-10.2); CHLORIDE 110 mmol/L (98-107); COSMO 289; CREATININE 0.7 mg/dL (0.7-1.2); ESTIMATED GFR > 60; GLUCOSE 105 mg/dL (70-104); POTASSIUM 3.2 mmol/L (3.5-5.1); SODIUM 146 mmol/L (136-145); TCO2 25 mmol/L (25-35)
[2018-07-24] MEDS: MUCOMYST 10% INH SCH (07:25)
--- NOTE | 2018-07-24 07:37 | Diag Imaging Result Doc PS360 ---
EXAM: CHEST-1 VIEW INDICATION: SOB TECHNIQUE: One view COMPARISON: 07/23/2018 FINDINGS: The NG tube is in stable position. Pulmonary venous congestion is essentially stable given differences in inspiration. No new consolidation is identified. Cardiac silhouette is stable. IMPRESSION: Essentially stable chest. Electronically signed by Hardeep Peacock 07/24/2018 7:35 AM
[2018-07-24] MEDS: PLAVIX PO SCH (08:23)
[2018-07-24] MEDS: ZOCOR PO SCH (08:23)
[2018-07-24] MEDS: POTASSIUM CHLORIDE 20% LIQUID MISC PRN (08:23)
[2018-07-24] MEDS: CENTRUM SILVER PO SCH (08:23)
[2018-07-24] MEDS: CELEXA PO SCH (08:23)
[2018-07-24] MEDS: ZYVOX 600 MG/D5W 600 MG/300 ML IVPB IV SCH (08:23)
[2018-07-24] MEDS: VITAMIN B-1 PO SCH (08:23)
[2018-07-24] MEDS ORDERED: APRESOLINE IV PRN (08:56)
[2018-07-24] MEDS: POTASSIUM CHLORIDE 20 MEQ/SWI 20 MEQ/100 ML IVPB IV SCH ×2 (10:14→12:09)
--- NOTE | 2018-07-24 10:39 | PROGRESS NOTE ---
DATE: 07/24/2018 SUBJECTIVE: The patient has not been restless overnight. He received 1 dose of Geodon at night and since then, he has been okay. No other issues noted as per nursing staff overnight. OBJECTIVE: Vital Signs: Temperature 98.1 degrees, heart rate 97, respiratory rate is 22, blood pressure 146/87, O2 saturation 100% on 2 L nasal. General Examination: This is a chronically ill looking, 73-year-old, male, lying in the bed, in no acute distress. HEENT: Head is normocephalic and atraumatic. Mucous membranes are very dry. The patient continues to have an NG tube in place. There is an asymmetry noted in the left side of the face due to postsurgical treatment of neck cancer. Neck: No JVD noted. No carotid bruits. No lymphadenopathy. There is an area that has been surgically removed on the left side. Cardiovascular Examination: S1 and S2 heard. No murmurs, gallops, or rubs. Regular rate and rhythm. Respiratory Examination: Coarse breath sounds are still present in both pulmonary bases. The patient is not using any accessory muscles or having work of breathing. Abdomen: A little bit distended, but nontender to palpation. Bowel sounds present. No organomegaly. Extremities: No clubbing, cyanosis, or edema. Peripheral pulses present in both legs. Neurological Examination: The patient is sleepy and does not follow commands at this time but he had been resting last night. Laboratory Data: White cell count 8.34, hemoglobin 9.2, hematocrit 29.6, platelets 500,000. ABG that shows pH 7.39 with pCO2 of 49 and PO2 of 95. ASSESSMENT AND PLAN: 1. Acute hypoxemic and hypercapnic respiratory failure. Oxygen needs are stable , requiring 2 L of oxygen by nasal cannula. Pulmonary is following this patient. We will follow recommendations. 2. Bilateral pneumonia secondary to aspiration. Finally, white cell count is back to normal. We will continue this patient on Zosyn and Zyvox. We will continue with the same management. Infectious disease is following this patient. We will follow recommendations. 3. New onset seizure secondary to alcohol withdrawal, stable from their standpoint. No episodes of seizures while he was under my care. Will continue with the same management. 4. Nutritional status. The patient has failed a swallow test. Although the patient does not need a PEG tube according to gastroenterology, they think he is not stable enough to undergo any surgical procedure. At this point, we will continue with nasogastric tube feedings that apparently he is tolerating well. We will continue to monitor this patient in the intensive care unit. We have talked with the social director and porter sample case. I think if this patient continues to require hospital care, I think long-term acute care would be an option for him. cc: Elias Siu MD MTDD
--- NOTE | 2018-07-24 13:44 | PROGRESS NOTE ---
DATE: 07/24/2018 SUBJECTIVE: Patient is currently awake. He is alert. He was able to tell me that he was at [facility]. He did follow commands. He is more awake and alert than he has been at present time. He is not agitated. His is at the bedside. OBJECTIVE: Vital Signs: Temperature 98.1 degrees, pulse 123, respirations 24, blood pressure 166/111. General: Patient is awake. He does follow commands. He is not agitated. He is tolerating his tube feedings via nasogastric tube. LABORATORY: Hematology: WBC 8.24, hemoglobin 9.2, hematocrit 29.6, MCV 103.9, platelets 500,000. Chemistry: Sodium 146, potassium 3.2, chloride 110, CO2 25, BUN 7, creatinine 0.7, glucose 105. ASSESSMENT AND PLAN: 1. Acute respiratory failure. Patient is stable on oxygen by nasal cannula. 2. Pneumonia. On antibiotics. Infectious disease is following. 3. New onset seizures, most likely from alcohol withdrawal. Patient has been seen by Neurology. 4. Nutritional status. Patient is receiving tube feedings by nasogastric tube. His modified barium swallow test on 07/20/2018 showed aspiration and decreased tone in the hypopharynx. We have discussed with the the option of PEG tube placement. For now, since he is receiving tube feedings via nasogastric tube without problems, will continue to follow. Hopefully, since he is more awake and alert, he may be able to start oral foods if he continues to improve. We may have to repeat his swallow test at a later date. Again, will continue to follow. The option has been discussed with the about a PEG tube placement if necessary and she agrees if needed. Again, we will continue to follow. I have discussed this case with Dr. iKm and Dr. Kim did talk with the yesterday. Dictated by RENE Luu for Brent Kim MD cc: RENE Keyes MD
--- NOTE | 2018-07-24 14:52 | CONSULTATION ---
DATE OF CONSULTATION: 07/24/2018 REASON FOR CONSULTATION: Intermittent leg jerks. HISTORY OF PRESENT ILLNESS: This is a 73-year-old right-handed male who was admitted 07/05/2018 after a witnessed seizure. History is from the patient's . She states the patient drinks about 6 mixed alcoholic drinks and beer every day. His last drink was in the morning time of the day prior to his admission, so approximately 24 hours. He was attempting to stop drinking for a celebration. They first noted tremors that evening, followed by ira seizure event the morning of admission with stiffening and shaking all over, eyes rolled back , and he did bite his lip drawing blood. There was no incontinence. He was postictal afterwards and poorly responsive and gradually improved over a half hour or so. A head CT showed remote left frontal and left occipital encephalomalacia but nothing acute. He was noted to be hyponatremic with a sodium of 126, and there was a concern for sepsis. Ultimately he has been diagnosed with pneumonia, and there has been concern for aspiration. He was treated for alcohol withdrawal with lorazepam for the first several days and then subsequently some p.r.n. He was also placed on scheduled Librium, his last dose being around 07/15/2018. He was quite groggy but has since improved in that regard somewhat. Thiamine has been administered. At times, he has required Haldol, Geodon or phenobarbital p.r.n. for agitation. Notes mention he gets agitated at night, sometimes in the day. He is in bilateral soft wrist restraints placed loosely to keep him from pulling out his NG tube. has noticed some occasional tremulous movements of his legs. She noticed it infrequently earlier in his hospitalization but yesterday the frequency peaked, and it was happening every 10 minutes or so, lasting a couple of minutes in duration. He is also having tremors of his upper extremities which seem to be separate from what she is seeing in the lower extremities. He has not had ira seizure activity since his arrival to the hospital. He has been unable to pass his swallow evaluation, and thus NG tube has remained in place. The patient has no known prior history of definite seizure, though the reports one incident maybe a year ago when he was not really responding to her for a brief amount of time. There was no shaking. She was not sure if his eyes were open or closed at the time. PAST MEDICAL HISTORY: 1. Throat cancer 30 years ago with radial neck resection and radiation therapy. 2. Occluded left carotid stent. 3. Ischemic stroke x2 approximately 2 years ago. 4. Hypertension. 5. BPH with TURP and prior suprapubic catheter. 6. Multiple melanoma excisions. 7. Alcoholism. SOCIAL HISTORY: He is and has children. He lives at home with his . He drinks about 6 bourbon drinks a day with 2 or 3 beers per day. No tobacco or illicits. FAMILY HISTORY: Positive for diabetes, Alzheimer's and coronary artery disease. ALLERGIES: No known drug allergies. MEDICATIONS: Reviewed in the chart and include Plavix, Celexa, p.r.n. Haldol last dose very early this morning, p.r.n. Geodon last dose yesterday evening, p.r.n. Robaxin last dose yesterday morning. REVIEW OF SYSTEMS: A balance of 12 was conducted and is otherwise negative except for that detailed in the HPI. PHYSICAL EXAMINATION: Vital signs: Afebrile, blood pressure 149/107. Pulse 86 to 108. Respirations 23. Saturation 100% on nasal cannula 2 L. Mr. Argueta is supine in bed with head of bed elevated. He arouses to voice. He regards. He follows simple commands consistently, also complex commands. Left right and digit distinction preserved. No definite language disturbance. He is difficult to understand, and I am not certain how much of this is baseline. reports his speech is not baseline. Pupils equal, round and reactive. Gaze conjugate and forward. Extraocular movements were full. Visual hunter were a bit difficult to test with direct confrontation, but he does blink to threat consistently. There is surgical deformity to the left mandible and surrounding areas. He is unable to protrude his tongue. I cannot visualize the palate. Shoulder shrug full. No pronator drift. He is tremulous with the arms outstretched. I do not see definite asterixis. His finger to nose is intact bilaterally. Rapid alternating movements and are symmetric and intact. He has good and preserved power in the arms and legs that seem symmetric. He responds to pinprick symmetrically in all extremities. There is subtle loss to vibratory sensation very distally at the great toe bilaterally. This is preserved at the ankles bilaterally. Joint position sense is intact bilaterally. Reflexes are absent at the ankles, 2+ at the knees, 1+ at the wrist bilaterally. There is no clonus. Plantar response is downgoing. During the exam, I did see some of the tremulous movements of the lower extremities that started spontaneously, very brief in nature, less than a minute. They were irregular and were not consistent with seizure activity. I also saw them during examination of his lower extremities which seemed to exacerbate these symptoms. He seemed tense and had a difficult time relaxing. DIAGNOSTIC DATA: Head CT was personally reviewed. There were no acute findings. There was old encephalomalacia at the left frontal and left occipital lobes. White count normalized as of today. BUN and creatinine are normal. Serum ethyl alcohol level was 0 on admission. Toxicology negative. Sodium is 146 today, was 126 on admission. AST was 72 eight days ago , normal 5 days ago. ALT normal. Ammonia normal on admission. TSH was normal. B12 elevated, folate normal. ASSESSMENT AND PLAN: 1. Witnessed seizure at home in the setting of cessation of typical alcohol intake. I suspect it is related to alcohol withdrawal. There was mention of a potential event about a year ago as detailed above. I would like to go ahead and order a routine EEG for more complete workup. MRI with and without contrast would be helpful too. 2. Tremulous movements of the arms or legs. I have seen this on exam, and this is not consistent with seizure activity. Etiology is uncertain. This may be toxic metabolic in nature. It may be an undiagnosed essential tremor that has been masked for years with his alcohol intake, and now that has become more prominent while hospitalized. I would continue to monitor this clinically and see if it improves as his medical conditions continue to improve. 3. Dysphagia. He has not been able to pass the swallow study and has been on tube feeds this hospitalization, with concern for aspiration. I would consider ordering an MRI of the brain with and without contrast for evaluation. He does have a stroke history and by report an occluded left carotid stent. There is also a melanoma history. 4. Pneumonia. Respiratory failure per primary and Infectious Disease. 5. History of remote stroke x2 with reported occluded left carotid stent. I would recommend the MRI as per above. Continue Plavix. Thank you for consultation. cc: Karina English MD [facility]
--- NOTE | 2018-07-24 18:33 | EEG REPORT ---
DATE: 07/24/2018 REFERRING PHYSICIAN: Karina English MD. UNMANNED EQUIPMENT OPERATOR: Gita Meier. BACKGROUND INFORMATION/TECHNIQUE: This is a digitally recorded routine EEG with video. HISTORY: 73-year-old male with question of seizure. He had a witnessed seizure in the setting of reduced alcohol intake. There is a report of a possible previous event. The EEG is ordered to detect evidence of seizures. MEDICATIONS: Include Haldol and Geodon p.r.n. and Celexa. EEG FINDINGS: This is a technically limited study due to diffuse myogenic artifact necessitating filtering. A well formed and sustained posterior dominant alpha rhythm is not seen. The background at maximal alertness consists of mixed alpha and beta range frequencies with some theta. No definite persistent focal slowing. No epileptiform discharges. No seizures. Hyperventilation was not performed. Photic stimulation did not alter the record. The patient becomes drowsy, but Stage II sleep is not seen. EKG demonstrates regular intervals. The patient has shaking of his legs intermittently during the record. There is no epileptiform EEG correlate. IMPRESSION AND CLINICAL CORRELATION: Abnormal routine EEG due to mild diffuse slowing suggestive of a mild nonspecific encephalopathy. No epileptiform discharges and no seizures are seen on the current study. This does not rule out an underlying seizure disorder. cc: Karina English MD
--- NOTE | 2018-07-24 18:55 | INFECTIOUS DISEASE PROGRESS NO ---
DATE: 07/24/2018 Mr. Argueta is recovering from what was thought to be an aspiration pneumonia and a leukocytosis. He has been receiving Zyvox and Zosyn but has been afebrile; and today the leukocytosis has resolved. On chest x-ray today there is pulmonary venous congestion but no new consolidation. At this point there appears to be no obvious infection so we will go ahead and discontinue antibiotics and sign off at this time. We will be available on a p.r.n. basis. Dictated by RENE Olivarez for Luis Daniel Stevenson MD This chart was documented by, RENE Olivarez and accurately reflects the services performed, treatment plan and medical decisions as attested by the providers signature Luis Daniel Stevenson MD. cc: Luis Daniel Stevenson MD MTDD
[2018-07-24] MEDS: MUCOMYST 20% INH SCH (19:25)
[2018-07-25] MEDS: ROBITUSSIN NG SCH ×2 (00:49→05:38)
[2018-07-25] MEDS: XOPENEX NEB INH SCH ×6 (03:45→23:30)
[2018-07-25] MEDS: ATROVENT NEB INH SCH ×6 (03:45→23:30)
[2018-07-25 05:30] LABS: HEMATOCRIT 31.7 % (42.0-52.0); HEMOGLOBIN 9.8 g/dL (14.0-18.0); MCH 31.9 PG (27-31); MCHC 30.9 g/dL (33-37); MCV 103.3 FL (81-99); MPV 8.6 FL (7.4-10.4); RBC 3.07 XMIL (4.7-6.1); RDW 14.5 % (11.5-14.5); WBC 9.35 X1000 (4.8-10.8)
[2018-07-25 05:47] LABS: AGAP 9; ALB/GLOB RATIO 0.6; ALBUMIN 2.8 g/dL (3.5-5.0); ALKALINE PHOSPHATASE 62 U/L (32-122); BUN 8 mg/dL (8-22); CALCIUM 9.7 mg/dL (8.8-10.2); CHLORIDE 109 mmol/L (98-107); COSMO 285; CREATININE 0.7 mg/dL (0.7-1.2); ESTIMATED GFR > 60; GLUCOSE 98 mg/dL (70-104); GOT 25 U/L (10-34); GPT 13 U/L (10-44); POTASSIUM 4.2 mmol/L (3.5-5.1); SODIUM 144 mmol/L (136-145); TCO2 26 mmol/L (25-35); TOTAL BILIRUBIN 0.26 mg/dL (0.20-1.00); TOTAL PROTEIN 7.4 g/dL (6.3-8.3)
--- NOTE | 2018-07-25 06:39 | Diag Imaging Result Doc PS360 ---
EXAM: CHEST-1 VIEW HISTORY: SOB TECHNIQUE: Portable chest single view COMPARISON: 07/24/2018 FINDINGS: The lungs are well expanded. A nasogastric tube overlies the esophagus and stomach. No cardiomegaly. No pleural effusions identified. There are mild increased interstitial markings similar to the prior exam. IMPRESSION: Stable chest Electronically signed by Aleksandar Martinez 07/25/2018 6:36 AM
[2018-07-25] MEDS: MUCOMYST 20% INH SCH ×2 (07:33→19:31)
[2018-07-25] MEDS ORDERED: LABETALOL IV PRN ×2 (08:34→08:37)
[2018-07-25] MEDS ORDERED: CATAPRES-TTS-2 TD SCH (08:45)
[2018-07-25] MEDS ORDERED: PRINIVIL NG SCH (09:00)
--- NOTE | 2018-07-25 09:01 | PROGRESS NOTE ---
DATE: 07/25/2018 SUBJECTIVE: The patient is resting comfortably in bed. He denies having any complaints at this time. He does have a loose cough and is currently on tube feeds via an NG tube. OBJECTIVE: Vital Signs: Temperature 98.2 degrees, blood pressure 172/114, respirations 29, heart rate 124, O2 saturations 98% on 2 L nasal cannula. Input 1.6 L; output 1.1 L. General: This is a chronically ill-appearing, elderly male lying in bed in no acute distress. Head: Normocephalic, atraumatic. Heart: S1, S2 normal. Tachycardic. Lungs: Coarse breath sounds with crackles. Abdomen: Positive bowel sounds. Soft, nontender, nondistended. Extremities: No edema, no cyanosis. Neurologic: The patient is awake, but confused. He is in wrist restraints. LABS: White blood cell count 9.3, hemoglobin 9.8, hematocrit 31, platelets 532. Sodium 144, potassium 4.2, chloride 109, CO2 26. BUN 8, creatinine 0.7, glucose 98. AST 25 , ALT 13, alkaline phosphatase 62, total protein 7.4, albumin 2.8. X-RAYS: Chest x-ray shows mild interstitial marking. ASSESSMENT AND PLAN: 1. Acute hypoxemic and hypercapnic respiratory failure. Stable. The patient is currently on 2 L nasal cannula. We will continue with pulmonary toiletry. Strict aspiration precautions and bronchodilator therapy. Pulmonary is following. 2. New-onset seizure. No further seizure activity has been noted in the hospital. Neurology is following. 3. Uncontrolled hypertension. Will start the patient on oral antihypertensive therapy. 4. Dysphagia. The patient is currently receiving nasogastric tube feeds. Gastroenterology is following. 5. Severe protein calorie malnutrition. Continue with tube feeds as per the dietitian. 6. Leukocytosis. Resolved. 7. Anemia. Stable. 8. Situational depression. Continue on Celexa. 9. Deep vein thrombosis prophylaxis. Will start the patient on Lovenox. cc: Camille He MD MTDD
[2018-07-25] MEDS: CENTRUM SILVER PO SCH (09:42)
[2018-07-25] MEDS: ZOCOR PO SCH (09:42)
[2018-07-25] MEDS: PLAVIX PO SCH (09:42)
[2018-07-25] MEDS: VITAMIN B-1 NG SCH (09:42)
[2018-07-25] MEDS: CELEXA PO SCH (09:42)
[2018-07-25] MEDS: NORVASC PO SCH ×2 (09:42→20:19)
[2018-07-25] MEDS: COREG NG SCH ×2 (09:42→20:20)
[2018-07-25] MEDS: LOVENOX SUBQ SCH (09:43)
--- NOTE | 2018-07-25 14:37 | PROGRESS NOTE ---
DATE: 07/25/2018 SUBJECTIVE: No major overnight events. reports he seems a bit more alert today. He has continued to have some shaking of the legs, but she thinks it is less frequent compared to yesterday. OBJECTIVE: Afebrile, blood pressure 139/103, pulse 80s to 90s. Mr. Argueta is supine in bed with eyes open, looking around when I enter the room. He regards instantly. He drifts to sleep as I speak with his . He is easily alerted. He can follow simple commands. He is oriented to hospital, month, but says incorrect year. At one point, he smiles and laughs. Pupils are equal, round and reactive. Gaze is conjugate. His strength appears to be preserved and symmetric in the arms and legs. His speech is very difficult to understand, and it is difficult to determine how off he is from his baseline, but does report his speech is not baseline. He also continues to have difficulties with swallowing. DIAGNOSTIC DATA: Normal white count, sodium, BUN, creatinine, AST, ALT. His routine EEG was personally reviewed. It showed mild diffuse slowing suggestive of a mild nonspecific encephalopathy. There were no epileptiform discharges or seizures on the study. He had shaking of his legs during the study, and there was no epileptiform EEG correlate to suggest seizure. ASSESSMENT AND PLAN: 1. Witnessed seizure at home in the setting of cessation of typical alcohol intake. Again, I suspect this is related to alcohol withdrawal, but he needs an MRI with and without contrast to complete workup. Routine EEG did not show increased propensity to seizure. There is no current indication for antiepileptic medication. 2. Tremulous movements of the arms or legs. Etiology remains uncertain. Seemed more frequent yesterday, and I did not see it all at time of bedside today. Not consistent with seizure activity. 3. Dysphagia. reports his speech is not at baseline. He was able to swallow prior to hospitalization. Will order the brain MRI. cc: MD CLEMENCIA DossD
--- NOTE | 2018-07-25 16:26 | Diag Imaging Result Doc PS360 ---
MRI BRAIN W/WO CONTRAST - 07/25/2018 INDICATION: seizure; r/o stroke COMPARISON: Head CT 07/05/2018 FINDINGS: There is no area of restricted diffusion. There is mild diffuse atrophy. There are stable old areas of encephalomalacia at the left frontal and occipital lobes. There is some moderate white matter hyperintensity in the selvin stable from prior. This likely indicates old chronic microvascular disease. No intracranial mass or hemorrhage. No abnormal contrast enhancement. 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 No acute process. Electronically signed by Cristiano Alston 07/25/2018 4:24 PM
--- NOTE | 2018-07-25 18:38 | PROGRESS NOTE ---
DATE: 07/25/2108 SUBJECTIVE: Patient is asleep in no acute distress. He is resting at the present time. His is at the bedside. She states his speech is still a little slurred, but has been more awake over the last 2 days and less agitated. The patient has been evaluated by neurology. Further workup including MRI has been scheduled. OBJECTIVE: Vital Signs: Temperature 98.9 degrees, pulse 92, respirations 23 and blood pressure 140/89. General: The patient was resting with eyes closed in no acute distress. He has feeding tube to nasogastric. He has nasogastric feeding infusing with no difficulty. LABORATORY: Hematology: WBC 9.35, hemoglobin 9.8, hematocrit 31.7, MCV 103.3, and platelets 532,000. Chemistry: Sodium 144, potassium 4.2, chloride 109, CO2 26, BUN 8, creatinine 0.7, and glucose 98. ASSESSMENT AND PLAN: 1. Acute respiratory failure. Patient now on oxygen by nasal cannula. 2. Pneumonia on antibiotics. 3. New onset of seizures most likely from alcohol withdrawal. Patient is being followed by neurology. I believe they have ordered an MRI of the brain to rule out possibility of stroke. 4. Nutritional status. The patient is receiving tube feedings via nasogastric. Modified barium swallow on 07/20/2018 showed aspiration and decreased tone of the hypopharynx. Continue current NG-tube feedings. Keep head elevated, aspiration precautions. Continue PPI. We have discussed with the about the possibility of a PEG tube if his mental status does not improve to where he can possibly start back eating. Again, we will continue to follow along at this present time. It is not urgent to place a PEG tube since he is tolerating his NG tube feeding. We will continue to follow, and follow with neurology's recommendation and evaluation for possible stroke by MRI. Further plans to be made according to findings. I have discussed this case with Dr. Kim. Dictated by RENE Luu for Brent Kim MD cc: RENE Keyes MD
[2018-07-25] MEDS: HALDOL IV PRN (22:52)
[2018-07-26] MEDS: STERILE WATER INJ. INJ PRN (01:44)
[2018-07-26] MEDS: GEODON IM PRN (01:44)
[2018-07-26] MEDS: ATROVENT NEB INH SCH ×6 (03:35→23:20)
[2018-07-26] MEDS: XOPENEX NEB INH SCH ×6 (03:35→23:20)
[2018-07-26] MEDS ORDERED: APRESOLINE PO SCH ×2 (05:00→21:00)
[2018-07-26 05:44] LABS: BASO# 0.02 X1000 (0.0-0.2); BASO% 0.2 % (0.0-0.8); MONO% 9.2 % (1.7-9.3)
[2018-07-26 05:56] LABS: EOS# 0.87 X1000 (0.0-0.7); EOS% 9.2 % (0.0-10.0); HEMATOCRIT 34.5 % (42.0-52.0); HEMOGLOBIN 10.9 g/dL (14.0-18.0); IMM GRAN# 0.04 X1000 (0.0-0.04); IMM GRAN% 0.4 % (0.0-0.5); LYMPH# 2.22 X1000 (1.2-3.4); LYMPH% 23.4 % (20.5-51.1); MCH 32.2 PG (27-31); MCHC 31.6 g/dL (33-37); MCV 102.1 FL (81-99); MONO# 0.87 X1000 (0.11-0.59); NEUT# 5.48 X1000 (1.4-6.5); NEUT% 57.6 % (42.2-75.2); PLT 550 X1000 (130-400); RBC 3.38 XMIL (4.7-6.1); RDW 14.4 % (11.5-14.5)
[2018-07-26 06:16] LABS: AGAP 11; ALB/GLOB RATIO 0.7; ALBUMIN 3.2 g/dL (3.5-5.0); ALKALINE PHOSPHATASE 72 U/L (32-122); BUN 10 mg/dL (8-22); CALCIUM 10.1 mg/dL (8.8-10.2); CHLORIDE 106 mmol/L (98-107); COSMO 282; CREATININE 0.7 mg/dL (0.7-1.2); ESTIMATED GFR > 60; GLUCOSE 126 mg/dL (70-104); GOT 24 U/L (10-34); GPT 16 U/L (10-44); POTASSIUM 4.1 mmol/L (3.5-5.1); SODIUM 141 mmol/L (136-145); TCO2 24 mmol/L (25-35); TOTAL BILIRUBIN 0.29 mg/dL (0.20-1.00); TOTAL PROTEIN 7.6 g/dL (6.3-8.3)
[2018-07-26 06:30] LABS: MAGNESIUM 1.9 mg/dL (1.5-2.7); PHOSPHORUS 3.3 mg/dL (2.7-4.5)
--- NOTE | 2018-07-26 07:14 | Diag Imaging Result Doc PS360 ---
EXAM: CHEST-1 VIEW 07/26/2018 HISTORY: SOB TECHNIQUE: AP portable at 0532 COMMENT: There is opacification of the left lower lobe which has worsened since 07/25/2018. There is an NG tube which passes below the diaphragm. IMPRESSION: Worsened atelectasis versus pneumonia left lower lobe. Electronically signed by Robson Rush 07/26/2018 7:11 AM
[2018-07-26] MEDS: MUCOMYST 20% INH SCH ×2 (08:35→19:31)
[2018-07-26] MEDS: LOVENOX SUBQ SCH (08:44)
[2018-07-26] MEDS: CENTRUM SILVER PO SCH (08:44)
[2018-07-26] MEDS: CELEXA PO SCH (08:44)
[2018-07-26] MEDS: ZOCOR PO SCH (08:45)
[2018-07-26] MEDS: PLAVIX PO SCH (08:45)
[2018-07-26] MEDS: PRINIVIL PO SCH (08:45)
[2018-07-26] MEDS: COREG PO SCH ×2 (08:45→21:25)
[2018-07-26] MEDS: VITAMIN B-1 NG SCH (08:45)
[2018-07-26] MEDS: NORVASC PO SCH ×2 (08:51→21:25)
[2018-07-26] MEDS: ZYVOX 600 MG/D5W 600 MG/300 ML IVPB IV SCH ×3 (10:31→17:33)
[2018-07-26] MEDS: MAXIPIME 1 GM in NS 50 ML IV SCH ×3 (10:31→17:34)
--- NOTE | 2018-07-26 13:02 | PROGRESS NOTE ---
DATE: 07/26/2018 Mr. Argueta has been in the hospital for about [address] English saw him recently for neurology evaluation. He had presumed ethanol withdrawal seizure. He has been very slow to recover and still is not back to baseline mentally, according to . Brain MRI shows old left frontal and old left occipital encephalomalacia. reports no definite previous history of clinical stroke. She has been aware of trouble with his speech since hospital admission 3 weeks ago and she reports mostly slurred speech, hard to understand his words, not definite dysphasia. He has had some dysphagia. has not noticed focal weakness or vision disturbance. On my exam today, he is awake, alert, attentive. He seems appropriate. I think he is brighter and more attentive today than earlier this week. Speech is dysarthric but most of it can be understood. He did well on bedside testing of repeating, naming, comprehension. He followed commands correctly requiring digit distinction and right/left distinction. He has good power in the limbs. Tone is symmetric in the arms and legs. I did not test his gait. Visual hunter are full to brief confrontational finger counting. IMPRESSION: 1. Recent seizure associated with ethanol withdrawal. EEG did not show tendency to seizure. I do not think we need to do anything further from a seizure management standpoint. 2. He has had some tremulousness in the limbs. That is not prominent now. This may have been part of the ethanol withdrawal syndrome and likely is toxic/metabolic, not indicative of a primary central nervous system problem. 3. Dysarthria. MRI findings were reviewed and discussed with Ms. Argueta. There is noncontrast CT done 07/05/2018 on admission and that showed these same areas of encephalomalacia in the left frontal and left occipital regions. His dysarthria is not a focal finding and may be related to toxic or metabolic state. Haloperidol 30 mg in the last 3- 4 days, ziprasidone 20 mg early this morning, might be contributing. I do not see anything significant in the chemistry profile as far as problems that might be associated with encephalopathy. 4. reports some forgetfulness at baseline and there may be a preexisting mild cognitive impairment syndrome which would predispose him to more protracted and more prominent encephalopathic features with any toxic/metabolic disturbance. My impression is that he is a little bit improved today. I do not have any urgent suggestion from neurology standpoint. Thanks for asking us to see Mr. Argueta. cc: MD MEGHA Ojeda III
[2018-07-26] MEDS ORDERED: SODIUM CHLORIDE 0.9% INJ SCH (14:00)
--- NOTE | 2018-07-26 14:18 | PROGRESS NOTE ---
DATE: 07/26/2018 SUBJECTIVE: Patient is more alert today. He has been seen by Dr. Cannon with Neurology. Patient had an MRI of the brain on 07/25/2018 that shows stable chronic changes with old strokes in the left cerebral hemisphere and chronic micro vesicular disease in the selvin , but no acute process. Patient is currently receiving feeding by NG tube. OBJECTIVE: Vital Signs: Temperature 98.4 degrees, pulse 88, respirations 23, blood pressure 125/81. Generally: Patient is awake, eyes open. He follows commands. To most of my questions, he gives me a thumbs up but he does know where he is at. His is at the bedside. She states he has been given some ice chips and does notice coughing on occasion. LABORATORY DATA: Hematology: WBC 9.50, hemoglobin 10.9, hematocrit 34.5, MCV 102.1, platelets 550,000. Chemistry: Sodium 141, potassium 4.1, chloride 106, CO2 of 24, BUN 10 , creatinine 0.7, glucose 126. ASSESSMENT AND PLAN: 1. Pneumonia. On antibiotics. 2. Seizures, most likely from alcohol withdrawal. Patient has had Neurology evaluation and workup. 3. Dysphagia/aspiration. Patient is currently receiving tube feedings via nasogastric tube. He has had several swallow evaluations that showed aspiration. Patient has been more awake and alert over the last 3 days. We will repeat his swallow evaluation. I have spoken with Pravin Plascencia, speech pathologist. Further plans will be made according to results. In reviewing his medications, he was not on a proton pump inhibitor. Would add Protonix q.24 h. Recommend strict anti-reflux measures and aspiration precautions. Head of bed elevated. If he is able to start back eating, recommend head of the bed elevated for at least 1 to 2 hours. Continue head of the bed elevation during tube feedings. Further plans to be made according to his progress and swallow evaluation findings. I have discussed this case with Dr. Kim. Dictated by RENE Luu for Brent Kim MD cc: RENE Keyes MD [facility]
[2018-07-26] MEDS ORDERED: NS 250 ML ONE (16:43)
[2018-07-26 17:05] LABS: INR 0.94; PROTIME 13.4 Seconds (11.0-16.0)
--- NOTE | 2018-07-26 18:49 | PROGRESS NOTE ---
DATE: 07/26/2018 SUBJECTIVE: The patient is resting comfortably. No acute events noted overnight. He is more awake today. He does try to talk, but I can't understand what he is saying. OBJECTIVE: Vital Signs: Temperature 97.3 degrees, blood pressure 157/93, heart rate 84, respirations 18, and O2 saturation 95% on 2 L nasal cannula. General: This is a chronically ill- appearing elderly male lying in bed in no acute distress. HEENT: Head normocephalic atraumatic. Heart: S1, S2 normal. Regular rate and rhythm. Lungs: Coarse breath sounds. Diminished breath sounds at the bases. Abdomen: Positive bowel sounds. Soft, nontender, and nondistended. Extremities: No edema. No cyanosis. Neurologic: The patient is awake and alert. LABORATORY: White blood cell count 9.5, hemoglobin 10, hematocrit 34, and platelets 550,000. Sodium 141, potassium 4.1, chloride 106, CO2 24, BUN 10, creatinine 0.7, and glucose 126. ASSESSMENT AND PLAN: 1. Acute hypoxemic and hypercapnic respiratory failure. Improved. Continue with pulmonary toiletry with aspiration precautions and bronchodilator therapy. 2. Pneumonia. Procalcitonin ordered. Continue on antibiotic therapy. 3. Seizures. The patient has had no further seizure activity in the hospital. We will continue to monitor closely. 4. Hypertension. Improved. Continue on the current antihypertensive regimen. 5. Dysphagia. Continue with NG tube feeds. GI is following. 6. Severe protein calorie malnutrition. The patient is on tube feeds. 7. Anemia. Stable. 8. Situational depression. Continue on Celexa. 9. Deep vein thrombosis prophylaxis. Continue on Lovenox. 10. Disposition. The patient will be transferred to the CICU. We will consult physical therapy and occupational therapy. 11. Disposition. The patient will likely require rehab or LTAC placement. cc: Camille He MD MTDD
[2018-07-26] MEDS: PROTONIX IV SCH (21:25)
[2018-07-27] MEDS: XOPENEX NEB INH SCH ×6 (03:21→23:25)
[2018-07-27] MEDS: ATROVENT NEB INH SCH ×6 (03:21→23:25)
[2018-07-27] MEDS: HALDOL IV PRN ×2 (03:29→21:20)
[2018-07-27] MEDS: ZYVOX 600 MG/D5W 600 MG/300 ML IVPB IV SCH (05:14)
[2018-07-27] MEDS: MAXIPIME 1 GM in NS 50 ML IV SCH (05:14)
[2018-07-27 05:54] LABS: BASO# 0.02 X1000 (0.0-0.2); BASO% 0.2 % (0.0-0.8); EOS# 0.79 X1000 (0.0-0.7); EOS% 8.1 % (0.0-10.0); HEMATOCRIT 33.2 % (42.0-52.0); HEMOGLOBIN 10.4 g/dL (14.0-18.0); IMM GRAN# 0.05 X1000 (0.0-0.04); IMM GRAN% 0.5 % (0.0-0.5); LYMPH# 1.52 X1000 (1.2-3.4); LYMPH% 15.6 % (20.5-51.1); MCH 31.9 PG (27-31); MCHC 31.3 g/dL (33-37); MCV 101.8 FL (81-99); MONO# 0.85 X1000 (0.11-0.59); MONO% 8.7 % (1.7-9.3); MPV 8.5 FL (7.4-10.4); NEUT# 6.51 X1000 (1.4-6.5); NEUT% 66.9 % (42.2-75.2); PLT 484 X1000 (130-400); RBC 3.26 XMIL (4.7-6.1); RDW 14.4 % (11.5-14.5); WBC 9.74 X1000 (4.8-10.8)
[2018-07-27 06:19] LABS: AGAP 4; ALB/GLOB RATIO 0.8; ALBUMIN 3.2 g/dL (3.5-5.0); ALKALINE PHOSPHATASE 62 U/L (32-122); BUN 16 mg/dL (8-22); CALCIUM 9.9 mg/dL (8.8-10.2); CHLORIDE 106 mmol/L (98-107); COSMO 284; CREATININE 0.9 mg/dL (0.7-1.2); ESTIMATED GFR > 60; GLUCOSE 92 mg/dL (70-104); GOT 18 U/L (10-34); GPT 13 U/L (10-44); POTASSIUM 3.9 mmol/L (3.5-5.1); SODIUM 142 mmol/L (136-145); TCO2 32 mmol/L (25-35); TOTAL BILIRUBIN 0.34 mg/dL (0.20-1.00); TOTAL PROTEIN 7.1 g/dL (6.3-8.3)
--- NOTE | 2018-07-27 06:49 | Diag Imaging Result Doc PS360 ---
CHEST-1 VIEW - 07/27/2018 INDICATION: SOB COMPARISON: 07/26/2018 FINDINGS: There is a new left PICC line with the catheter tip at the cavoatrial junction. Stable nasogastric tube in good position. Stable patchy atelectasis or infiltrate in the lung bases. Stable lucency at the left lung apex likely relating to COPD. Heart size remains normal. IMPRESSION: New left PICC line in good position. Otherwise no change from prior. Electronically signed by Cristiano Alston 07/27/2018 6:47 AM
[2018-07-27] MEDS: PRINIVIL PO SCH (09:15)
[2018-07-27] MEDS: LOVENOX SUBQ SCH (09:15)
[2018-07-27] MEDS: NORVASC PO SCH ×2 (09:15→21:03)
[2018-07-27] MEDS: VITAMIN B-1 NG SCH (09:16)
[2018-07-27] MEDS: COREG PO SCH ×2 (09:16→21:03)
[2018-07-27] MEDS: APRESOLINE PO SCH ×3 (09:16→21:03)
[2018-07-27] MEDS: CENTRUM SILVER PO SCH (09:16)
[2018-07-27] MEDS: PLAVIX PO SCH (09:16)
--- NOTE | 2018-07-27 09:56 | PROGRESS NOTE ---
DATE: 07/27/2018 SUBJECTIVE: The patient's is present at the bedside. She states that the patient had a rough night last night. He remains in wrist restraints. OBJECTIVE: Vital Signs: Temperature 98.2 degrees blood pressure 123/77, heart rate 85, respirations 18, O2 saturation is 96% on 2 L nasal cannula. General: This is a chronically ill- appearing, elderly male lying in bed, in no acute distress. Heart: S1, S2 normal. Regular rate and rhythm. Lungs: Coarse breath sounds bilaterally with rhonchi. Abdomen: Positive bowel sounds. Soft, nontender, nondistended. Extremities: No edema, no cyanosis, no calf tenderness. Neurologic: The patient is lethargic and confused. Labs: White blood cell count 9.7, hemoglobin 10, hematocrit 33, platelets 484, 000. Sodium 142, potassium 3.9, chloride 106, CO2 32, BUN 16, creatinine 0.9, glucose 92. Chest x-ray shows patchy atelectasis or infiltrate in the lung bases. ASSESSMENT AND PLAN: 1. Acute hypoxemic and hypercapnic respiratory failure. Improved. Continue with pulmonary toiletry. 2. Pneumonia. We will await the results of the procalcitonin level. Continue with the current management. 3. Dysphagia. We will await the results of the swallow evaluation. Continue with the nasogastric tube feeds. 4. Seizures. Resolved. 5. Hypertension. Improved. 6. Severe protein calorie malnutrition. Continue on tube feeds. 7. Anemia. Stable. 8. Situational depression. Continue on Celexa. 9. Deep vein thrombosis prophylaxis. Continue on Lovenox. 10. Disposition. clinical services assistant is working on rehab placement for the patient. Physical therapy and occupational therapy have been consulted. cc: Camille He MD [facility]
[2018-07-27] MEDS: MUCOMYST 20% INH SCH ×2 (10:58→19:30)
--- NOTE | 2018-07-27 11:35 | PROGRESS NOTE ---
DATE: 07/27/2018 SUBJECTIVE: Mr. Argueta continues to require significant sedative medication. He has been restless when not sedated. He continues to require limb restraints. at the bedside reports thinking he was a little bit better yesterday. I encouraged her to be patient. ASSESSMENT AND PLAN: I do not have any new suggestion or new thoughts from a Neurology standpoint. Continue sedating as necessary while trying to keep that to a minimum, as you are doing. Will follow clinically. Thanks for asking Neurology to see Mr. Argueta. cc: MD MEGHA Ojeda III
--- NOTE | 2018-07-27 14:37 | Diag Imaging Result Doc PS360 ---
EXAM: BA SWALLOW W/VIDEO SPEECH THER 07/27/2018 HISTORY: Dysphagia TECHNIQUE: Modified barium swallow, 229 images, 50 mg, 20 seconds fluoroscopy time. COMMENT: There is an NG tube. There is some delay of the oral phase and there is very poor peristalsis in the hypopharynx. The cricopharyngeus does not tend to relax appropriately and there is persistent dilatation of the piriform sinuses and hypopharynx generally. Very brief and limited penetration is demonstrated with thin barium. No aspiration occurred during the examination. 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 Electronically signed by Robson Rush 07/27/2018 2:35 PM
[2018-07-27] MEDS: ROBAXIN PO PRN (21:02)
[2018-07-27] MEDS: ZOCOR PO SCH (21:03)
[2018-07-27] MEDS: PROTONIX IV SCH (21:03)
[2018-07-27] MEDS: STERILE WATER INJ. INJ PRN (23:51)
[2018-07-27] MEDS: GEODON IM PRN (23:52)
[2018-07-28] MEDS: XOPENEX NEB INH SCH ×6 (03:40→22:57)
[2018-07-28] MEDS: ATROVENT NEB INH SCH ×6 (03:40→22:56)
[2018-07-28 05:48] LABS: HEMATOCRIT 31.8 % (42.0-52.0); HEMOGLOBIN 9.7 g/dL (14.0-18.0); MCH 31.8 PG (27-31); MCHC 30.5 g/dL (33-37); MCV 104.3 FL (81-99); MPV 8.6 FL (7.4-10.4); RBC 3.05 XMIL (4.7-6.1); RDW 14.4 % (11.5-14.5); WBC 9.29 X1000 (4.8-10.8)
[2018-07-28 06:03] LABS: AGAP 11; ALB/GLOB RATIO 0.7; ALKALINE PHOSPHATASE 64 U/L (32-122); BUN 18 mg/dL (8-22); CHLORIDE 104 mmol/L (98-107); COSMO 284; ESTIMATED GFR > 60; GLUCOSE 76 mg/dL (70-104); GOT 24 U/L (10-34); GPT 15 U/L (10-44); POTASSIUM 3.9 mmol/L (3.5-5.1); SODIUM 142 mmol/L (136-145); TCO2 27 mmol/L (25-35); TOTAL BILIRUBIN 0.31 mg/dL (0.20-1.00); TOTAL PROTEIN 7.3 g/dL (6.3-8.3)
--- NOTE | 2018-07-28 07:23 | Diag Imaging Result Doc PS360 ---
EXAM: CHEST-1 VIEW 07/28/2018 HISTORY: SOB TECHNIQUE: AP portable at 0646 COMMENT: There is atelectatic opacity in the right middle lobe which is slightly worse than on 07/27/2018. The inspiration is less optimal. There is a hiatal hernia. There is a left-sided PICC line with its tip in the right atrium. IMPRESSION: Worsened right middle lobe atelectasis. Electronically signed by Robson Rush 07/28/2018 7:21 AM
[2018-07-28] MEDS: MUCOMYST 20% INH SCH ×2 (08:03→19:20)
[2018-07-28] MEDS: NORCO-5 PO PRN (08:31)
[2018-07-28] MEDS: APRESOLINE PO SCH ×3 (08:32→20:56)
[2018-07-28] MEDS: CENTRUM SILVER PO SCH (08:32)
[2018-07-28] MEDS: PLAVIX PO SCH (08:32)
[2018-07-28] MEDS: LOVENOX SUBQ SCH (08:32)
[2018-07-28] MEDS: PRINIVIL PO SCH (08:32)
[2018-07-28] MEDS: NORVASC PO SCH ×2 (08:32→20:56)
[2018-07-28] MEDS: COREG PO SCH ×2 (08:32→20:56)
[2018-07-28] MEDS: VITAMIN B-1 NG SCH (08:32)
--- NOTE | 2018-07-28 13:20 | PROGRESS NOTE ---
DATE: 07/28/2018 Mr. Argueta appeared to be sleeping peacefully as I approached the bedside. With gentle name calling, he was easily awakened and remained alert and attentive during my time there. He answered questions appropriately. The facial asymmetry is stable. Limited exam shows no definite focal deficit. I do not have any new thoughts or new suggestions from Neurology standpoint. I agree with plans for limiting sedatives as possible and hope to see him recover slowly. Thanks for asking Neurology to see Mr. Argueta. cc: Dominik Cannon III, MD
--- NOTE | 2018-07-28 14:24 | PROGRESS NOTE ---
DATE: 07/28/2018 SUBJECTIVE: Patient has been moved to [facility]. He had a repeat barium swallow that showed continued hypotonia of the hypopharynx with delayed relaxation of the cricopharyngeus but no evidence of aspiration. Patient's NG tube was removed and he has been placed on a pureed diet. His is at the bedside. She states he did eat several bites for breakfast. He still remains in restraints. She states he has tried to get up some during the night. He is alert, he follows commands and he is in no acute distress. OBJECTIVE: Vital signs: Temperature 97.7 degrees, pulse 21, respirations 78, blood pressure 126/78. General: The patient is awake and alert. He does follow commands. He is oriented to person and place. His is at the bedside. LABORATORY DATA: Hematology: WBC 9.29, hemoglobin 9.7, hematocrit 31.8, MCV 104.3, platelets 445,000. Chemistry: Sodium 142, potassium 3.9, chloride 104, CO2 27, BUN 18, creatinine 1.0, glucose 76. ASSESSMENT AND PLAN: 1. Respiratory failure has improved. He is on oxygen. 2. Pneumonia, on antibiotics. 3. Dysphagia. He had repeat swallow evaluation that did not show evidence of aspiration. His NG tube was removed and he has been started on a pureed diet. 4. Seizures with no recent evidence of seizures. Patient has been followed by Neurology. 5. Protein-calorie malnutrition. Patient's NG tube and tube feedings were discontinued and he has been transitioned over to a pureed diet. Recommend to continue strict anti-reflux measures and aspiration precautions. Further plans will be made according to his progress. I have discussed this case with Dr. Kim. Dictated by RENE Luu for Brent Kim MD cc: RENE Keyes MD
--- NOTE | 2018-07-28 17:11 | PROGRESS NOTE ---
DATE: 07/28/2018 SUBJECTIVE: The patient is resting comfortably in bed. He appears to be tolerating the pureed diet. OBJECTIVE: Vital Signs: Temperature 97, blood pressure is 126/70, heart rate 78, respirations 21, O2 saturations 100% on 3 L nasal cannula. General: This is a chronically ill-appearing, elderly male, lying in bed in no acute distress. Heart: S1, S2 normal. Regular rate and rhythm. Lungs: Equal air entry bilaterally. No wheezing. No rales. Abdomen: Positive bowel sounds. Soft, nontender, nondistended. Extremities: No edema, no cyanosis. Neurologic : The patient is awake, but confused. LABS: White blood cell count 9.2, hemoglobin 9.7, hematocrit 31, platelets 445. Sodium 142, potassium 3.9, chloride 104, CO2 of 27, BUN 18, creatinine 1, glucose 76. ASSESSMENT AND PLAN: 1. Pneumonia. Resolved. The procalcitonin level is normal. 2. Dysphagia. Improved. The patient is on a pureed diet. We will continue to monitor closely. 3. Encephalopathy. Monitor for improvement. 4. Hypertension. Improved. 5. Seizures. Resolved. 6. History of alcohol abuse. Aware. 7. Anemia. Stable. 8. Deep vein thrombosis prophylaxis. Continue on Lovenox. 9. Disposition. Individual Pension Adviser is working on rehab placement for the patient. Continue with physical therapy and occupational therapy. cc: Camille He MD [facility]
[2018-07-28] MEDS: DESYREL PO SCH (20:44)
[2018-07-28] MEDS: PROTONIX IV SCH (20:44)
[2018-07-28] MEDS: ZOCOR PO SCH (20:56)
--- NOTE | 2018-07-28 23:42 | PULMONOLOGY PROGRESS NOTE ---
DATE: 07/28/2018 SUBJECTIVE: Patient is awake, alert, and conversant. He has rhonchi which is barely audible with phonation. He is in no respiratory distress. OBJECTIVE: Vital Signs: BP 126/70, heart rate 78, respiratory rate 21, oxygen saturation 100% on 3 L per nasal cannula. HEENT: Pupils are equal and reactive. Oropharynx appears clear. Neck: Is supple. Chest: Reveals scattered rhonchi bilaterally with partial improvement after a cough. Cardiac: S1-S2. Abdomen: Soft with positive bowel sounds. Extremities: Are without edema. LABORATORIES: Chest x-ray reveals slight increased atelectasis in the right middle lobe. There is a hiatal hernia present. White blood count 9.29, hemoglobin 9.7, platelet count 145,000. Sodium 142, potassium 3.9, chloride 104, bicarbonate 27, BUN 18, creatinine 1.0. IMPRESSION: A 73-year-old with history of head and neck cancer, probable intermittent aspiration, hypoxemic respiratory failure, encephalopathy with improvement. RECOMMENDATION: 1. Continue bronchial hygiene. 2. Continue oxygen and wean as tolerated. 3. Continue to observe pulmonary status on a daily basis. The patient is at risk for recurrent aspiration. cc: Artie Velazco MD
[2018-07-29] MEDS: NORCO-5 PO PRN ×3 (00:55→23:17)
[2018-07-29] MEDS: ATROVENT NEB INH SCH ×6 (03:19→23:05)
[2018-07-29] MEDS: XOPENEX NEB INH SCH ×6 (03:19→23:06)
[2018-07-29 05:49] LABS: HEMATOCRIT 29.9 % (42.0-52.0); HEMOGLOBIN 9.4 g/dL (14.0-18.0); MCH 32.4 PG (27-31); MCHC 31.4 g/dL (33-37); MCV 103.1 FL (81-99); MPV 8.6 FL (7.4-10.4); RBC 2.9 XMIL (4.7-6.1); RDW 14.4 % (11.5-14.5); WBC 8.38 X1000 (4.8-10.8)
[2018-07-29 06:12] LABS: MAGNESIUM 1.9 mg/dL (1.5-2.7); PHOSPHORUS 3.5 mg/dL (2.7-4.5)
[2018-07-29 06:19] LABS: AGAP 10; BUN 19 mg/dL (8-22); CALCIUM 9.7 mg/dL (8.8-10.2); CHLORIDE 103 mmol/L (98-107); COSMO 279; CREATININE 0.9 mg/dL (0.7-1.2); ESTIMATED GFR > 60; GLUCOSE 80 mg/dL (70-104); POTASSIUM 3.8 mmol/L (3.5-5.1); SODIUM 139 mmol/L (136-145); TCO2 26 mmol/L (25-35)
--- NOTE | 2018-07-29 06:51 | Diag Imaging Result Doc PS360 ---
EXAM: CHEST-1 VIEW HISTORY: SOB TECHNIQUE: Portable chest single view COMPARISON: 07/28/2018 FINDINGS: No change in the left-sided PICC line. Poor inspiratory effort. No cardiomegaly. There is atelectasis and/or infiltrates in the lower lungs. These are similar to the prior study. Small pleural effusions. IMPRESSION: No interval change. Electronically signed by Aleksandar Martinez 07/29/2018 6:49 AM
[2018-07-29] MEDS: MUCOMYST 20% INH SCH ×2 (07:44→20:16)
[2018-07-29] MEDS: PRINIVIL PO SCH (09:06)
[2018-07-29] MEDS: APRESOLINE PO SCH ×3 (09:07→21:41)
[2018-07-29] MEDS: CENTRUM SILVER PO SCH (09:07)
[2018-07-29] MEDS: PLAVIX PO SCH (09:07)
[2018-07-29] MEDS: NORVASC PO SCH ×2 (09:07→21:41)
[2018-07-29] MEDS: VITAMIN B-1 NG SCH (09:07)
[2018-07-29] MEDS: COREG PO SCH ×2 (09:07→21:41)
[2018-07-29] MEDS: LOVENOX SUBQ SCH (09:07)
--- NOTE | 2018-07-29 16:04 | PROGRESS NOTE ---
DATE: 07/29/2018 SUBJECTIVE: The patient is resting comfortably in bed. He did not sleep very well last night. OBJECTIVE: Vital Signs: Temperature 97.5 degrees, blood pressure 112/69, heart rate 83, respirations 18, O2 saturation 99% on 3 L nasal cannula. General: This is a chronically ill- appearing elderly male sitting up in bed in no acute distress. Heart: S1, S2 normal. Regular rate and rhythm. Lungs: Equal air entry bilaterally. No wheezing. No rales. Abdomen: Positive bowel sounds. Soft, nontender, nondistended. Extremities: No edema, no cyanosis. Neurologic: The patient is awake and oriented to person and place. LABS: White blood cell count 8.3, hemoglobin 9.4, hematocrit 29, platelets 377,000, sodium 139, potassium 3.8, chloride 103, CO2 26, BUN 19, creatinine 0.9, glucose 80. ASSESSMENT AND PLAN: 1. Pneumonia. Resolved. 2. Dysphagia. Improved. Will continue on the current diet. 3. Encephalopathy. Slowly improving. 4. Hypertension. Improved. 5. Seizures. Resolved. 6. History of alcohol abuse. Aware. 7. Anemia. Stable. 8. Disposition. Floorwalker is working on rehab placement for the patient. Continue with physical therapy and occupational therapy. cc: Camille He MD
--- NOTE | 2018-07-29 20:27 | PULMONOLOGY PROGRESS NOTE ---
DATE: 07/29/2018 SUBJECTIVE: The patient is sleeping. His reports he has his days and nights reversed. He has some rhonchi noted on exam, but does clear with cough. OBJECTIVE: Vital Signs: The patient has been afebrile for the last 24 hours. Blood pressure 106/74, heart rate 87, respiratory rate 16, oxygen saturation 95% on 3 L. HEENT: Pupils are equal and reactive. Oropharynx appears clear. Neck: Supple. Chest: Reveals occasional rhonchi bilaterally. Cardiac exam: S1-S2. Abdomen: Soft with positive bowel sounds. Extremities: Without edema. LABORATORIES: Chest x-ray reveals continued atelectasis at the right base, unchanged from prior study. White blood count 8.38, hemoglobin 9.4, platelet count 377,000. Sodium 139, potassium 3.8, chloride 103, bicarbonate 26, BUN 19, creatinine 0.9. IMPRESSION: A 73 year old with: 1. History of head and neck cancer. 2. Intermittent aspiration. 3. Encephalopathy with slow steady improvement. 4. Hypoxemic respiratory failure. RECOMMENDATIONS: 1. Continue bronchial hygiene. 2. Continue to wean oxygen as tolerated. 3. Continue safe swallowing practices. 4. Followup chest x-ray tomorrow. cc: Artie Velazco MD
[2018-07-29] MEDS: DESYREL PO SCH (21:41)
[2018-07-29] MEDS: ZOCOR PO SCH (21:42)
[2018-07-29] MEDS: PROTONIX IV SCH (22:30)
[2018-07-30] MEDS ORDERED: ROBAXIN PO PRN (02:35)
[2018-07-30] MEDS: ATROVENT NEB INH SCH ×6 (03:55→23:37)
[2018-07-30] MEDS: XOPENEX NEB INH SCH ×6 (03:55→23:37)
[2018-07-30] MEDS: NORCO-5 PO PRN (05:29)
[2018-07-30] MEDS: HALDOL IV PRN (06:02)
[2018-07-30 06:14] LABS: HEMATOCRIT 30.3 % (42.0-52.0); HEMOGLOBIN 9.5 g/dL (14.0-18.0); MCH 32.5 PG (27-31); MCHC 31.4 g/dL (33-37); MCV 103.8 FL (81-99); MPV 8.9 FL (7.4-10.4); RBC 2.92 XMIL (4.7-6.1); RDW 14.6 % (11.5-14.5); WBC 9.68 X1000 (4.8-10.8)
[2018-07-30 06:28] LABS: AGAP 10; BUN 22 mg/dL (8-22); CALCIUM 9.9 mg/dL (8.8-10.2); CHLORIDE 100 mmol/L (98-107); COSMO 280; ESTIMATED GFR > 60; GLUCOSE 76 mg/dL (70-104); POTASSIUM 3.6 mmol/L (3.5-5.1); SODIUM 139 mmol/L (136-145); TCO2 29 mmol/L (25-35)
[2018-07-30] MEDS: MUCOMYST 20% INH SCH ×2 (07:42→19:38)
[2018-07-30] MEDS: COREG PO SCH ×2 (09:00→20:32)
[2018-07-30] MEDS: APRESOLINE PO SCH ×3 (09:00→20:32)
[2018-07-30] MEDS: PLAVIX PO SCH (09:00)
[2018-07-30] MEDS: PRINIVIL PO SCH (09:00)
[2018-07-30] MEDS: LOVENOX SUBQ SCH (09:01)
[2018-07-30] MEDS: CENTRUM SILVER PO SCH (09:01)
[2018-07-30] MEDS: VITAMIN B-1 NG SCH (09:01)
[2018-07-30] MEDS: NORVASC PO SCH ×2 (09:01→20:33)
--- NOTE | 2018-07-30 09:27 | Diag Imaging Result Doc PS360 ---
EXAM: CHEST-1 VIEW - 07/30/2018 HISTORY: SOB TECHNIQUE: Portable chest COMPARISON: 07/29/2018 FINDINGS: PICC remains in place. The projection is kyphotic, and inspiration appears somewhat shallow, similar to prior. There has been some overall decrease in basilar opacities compared to prior. There are some residual subsegmental atelectasis at the right base. There is no substantial pleural effusion or pneumothorax identified. IMPRESSION: Overall decrease in basilar opacities compared to prior. Electronically signed by Darío Ridley 07/30/2018 9:25 AM
[2018-07-30] MEDS: STERILE WATER INJ. INJ PRN (12:16)
[2018-07-30] MEDS: GEODON IM PRN (12:16)
--- NOTE | 2018-07-30 13:38 | PROGRESS NOTE ---
DATE: 07/30/2018 SUBJECTIVE: The patient is resting comfortably, he did not sleep well last night. He had some agitation and received Haldol early this morning. OBJECTIVE: Vital Signs: Temperature 97.8 degrees, blood pressure 122/64, heart rate 82, respirations 18, O2 saturation is 100% on 3 L nasal cannula. General: This is a chronically ill- appearing elderly male lying in bed in no acute distress. Heart: S1, S2 normal. Regular rate and rhythm. Lungs: Clear to auscultation bilaterally. Abdomen: Positive bowel sounds. Soft, nontender, nondistended. Extremities: No edema, no cyanosis. Neurologic: The patient is awake and alert. He does have periods of confusion. LABS: Reviewed. ASSESSMENT AND PLAN: 1. Pneumonia, resolved. 2. Dysphagia with aspiration. Will continue with aspiration precautions. The patient is on a pureed diet. 3. Encephalopathy. The patient appears to be having sundowners at night. Will add melatonin and Remeron at bedtime. 4. Hypertension. Improved. 5. History of alcohol abuse. Aware. 6. Seizures. Resolved. 7. Anemia. Stable. 8. Disposition. The patient will need inpatient rehab upon discharge. cc: Camille He MD MTDD
--- NOTE | 2018-07-30 15:31 | PULMONOLOGY PROGRESS NOTE ---
DATE: 07/30/2018 SUBJECTIVE: The patient is arousable to alert. He remains disoriented. He continues to climb out of bed and is in restraints. OBJECTIVE: Vital Signs: The patient is afebrile. BP 122/64, heart rate 82, respiratory rate 18, oxygen saturation 99% on 3 L. HEENT: Pupils are equal and reactive. Oropharynx is clear. Neck: Supple. Chest: Reveals occasional rhonchi, but clearer than yesterday. Cardiac: S1, S2. Abdomen: Soft. Extremities: Without edema. LABORATORIES: Chest x-ray reveals mild decrease in bibasilar infiltrates compared to yesterday. White blood count 9.68, hemoglobin 9.5, platelet count 372,000. Sodium 139, potassium 3.6, chloride 100, bicarbonate 29, BUN 22, creatinine 1.0. IMPRESSION: 1. A 73-year-old with intermittent aspiration. 2. Encephalopathy/delirium. 3. Hypoxemic respiratory failure. 4. History of head and neck cancer. He has made improvement over the last two weeks, but none over the last few days. RECOMMENDATION: 1. Continue bronchial hygiene. 2. Wean oxygen as tolerated. 3. Continue safe swallowing practices. cc: Artie Velazco MD
[2018-07-30] MEDS: ZOCOR PO SCH (20:32)
[2018-07-30] MEDS: PROTONIX IV SCH (20:33)
[2018-07-30] MEDS: MELATONIN PO SCH (20:33)
[2018-07-30] MEDS ORDERED: REMERON PO SCH (21:00)
[2018-07-31] MEDS: ATROVENT NEB INH SCH ×6 (03:21→23:11)
[2018-07-31] MEDS: XOPENEX NEB INH SCH ×6 (03:21→23:11)
[2018-07-31] MEDS: HALDOL IV PRN (03:30)
[2018-07-31 05:55] LABS: HEMATOCRIT 29.5 % (42.0-52.0); HEMOGLOBIN 9.4 g/dL (14.0-18.0); MCH 32.5 PG (27-31); MCHC 31.9 g/dL (33-37); MCV 102.1 FL (81-99); MPV 9.2 FL (7.4-10.4); RBC 2.89 XMIL (4.7-6.1); RDW 14.5 % (11.5-14.5); WBC 8.87 X1000 (4.8-10.8)
[2018-07-31 06:03] LABS: AGAP 12; BUN 20 mg/dL (8-22); CALCIUM 9.7 mg/dL (8.8-10.2); CHLORIDE 102 mmol/L (98-107); COSMO 281; CREATININE 0.9 mg/dL (0.7-1.2); ESTIMATED GFR > 60; GLUCOSE 82 mg/dL (70-104); POTASSIUM 3.6 mmol/L (3.5-5.1); SODIUM 140 mmol/L (136-145); TCO2 26 mmol/L (25-35)
--- NOTE | 2018-07-31 07:21 | Diag Imaging Result Doc PS360 ---
EXAM: CHEST-1 VIEW 07/31/2018 HISTORY: SOB TECHNIQUE: AP portable at 0600 COMMENT: The inspiration is suboptimal. There is platelike opacity over the right base which was also present on 07/30/2018. Overall there has been no significant change considering differences in technique. IMPRESSION: Right middle lobe atelectasis. Electronically signed by Robson Rush 07/31/2018 7:19 AM
[2018-07-31] MEDS: MUCOMYST 20% INH SCH ×2 (07:59→19:28)
[2018-07-31] MEDS: LOVENOX SUBQ SCH (08:42)
[2018-07-31] MEDS: PRINIVIL PO SCH (08:42)
[2018-07-31] MEDS: VITAMIN B-1 NG SCH (08:45)
[2018-07-31] MEDS: CENTRUM SILVER PO SCH (08:45)
[2018-07-31] MEDS: PLAVIX PO SCH (08:46)
[2018-07-31] MEDS: NORVASC PO SCH ×2 (08:46→20:04)
[2018-07-31] MEDS: COREG PO SCH ×2 (08:46→20:04)
[2018-07-31] MEDS: APRESOLINE PO SCH ×3 (08:46→20:04)
[2018-07-31] MEDS ORDERED: GEODON IM PRN (12:34)
--- NOTE | 2018-07-31 13:12 | PROGRESS NOTE ---
DATE: 07/31/2018 SUBJECTIVE: The is at bedside and reports the patient did better last night than previous nights. He has been agitated significantly at nighttime, requiring some sedating medications. He was given new medications last night consisting of Remeron and melatonin, which seemed to have helped, although he is more sedated this morning. Since I last saw him, he has been able to graduate to what looks to be mechanical soft diet. The team is looking for LTAC facility. His pneumonia has improved or resolved. MRI that was performed last week did not show any acute stroke. OBJECTIVE: Vital signs: He remains afebrile, blood pressures 94 to 130 systolic over 50s to 80s diastolic, pulse 70s to 80s, respirations 19, 99% on nasal cannula. The patient is sleeping peacefully, breathing regularly. I did not disturb him. I had a lengthy discussion with the at the bedside. LABORATORY DATA: Normal white count. Chemistry panel normal. ASSESSMENT AND PLAN: No new suggestions from a Neurology standpoint today. I agree with reducing his nighttime Remeron dosage to see if that would be less sedating. Agree with minimizing sedating medications as able. cc: Karina English MD MTDD
[2018-07-31] MEDS: ZOCOR PO SCH (20:04)
[2018-07-31] MEDS: PROTONIX IV SCH (20:04)
[2018-07-31] MEDS: MELATONIN PO SCH (20:04)
--- NOTE | 2018-07-31 20:44 | PROGRESS NOTE ---
DATE: 07/31/2018 SUBJECTIVE: Patient is currently being cleaned up. His was at the bedside. She states he continues to be agitated. I believe he still has to be in restraints. He is tolerating a pureed diet. OBJECTIVE: Vital Signs: Temperature 97.6, pulse 84, respirations 16, blood pressure 111/63. Generally: Patient is agitated at times. His is at the bedside. Still requires restraints to keep from getting out of bed. LABORATORY: Hematology: WBC 8.87, hemoglobin 9.4, hematocrit 29.5, MCV 102.1, platelets 313. Chemistry: Sodium 140, potassium 3.6, chloride 102, CO2 of 26, BUN 20, creatinine 0.9, glucose 82. ASSESSMENT AND PLAN: 1. Pneumonia, finished with antibiotics. 2. Dysphagia with aspiration. Continue strict anti-reflux measures and aspiration precautions. Patient's NG tube and feeding were discontinued and he is currently on a pureed diet. Seems to be tolerating that. Appetite varies depending on his alertness. 3. Encephalopathy. Patient's states his agitation and disorientation is worse at night. 4. Seizures, resolved. PLAN: Continue supportive care. Continue PPI. Continue anti-reflux measures and aspiration precautions. Continue to have head of the bed elevated during and after eating. Will continue to follow during this hospitalization and further plans will be made according to his progress. I have discussed this case with Dr. Kim. Dictated by RENE Luu for Brent Kim MD cc: RENE Keyes MD
[2018-07-31] MEDS ORDERED: REMERON PO SCH (21:00)
--- NOTE | 2018-08-01 01:57 | PROGRESS NOTE ---
DATE: 07/31/2018 SUBJECTIVE: The patient was noted to be agitated last night and he received sedatives. He is groggy and sleepy this morning. OBJECTIVE: Vital Signs: Temperature 97.6 degrees, blood pressure 111/63, heart rate 84, respirations 16, O2 saturation is 96% on 3 L nasal cannula. General: This is a chronically ill- appearing elderly male sitting up in bed in no acute distress. Heart: S1, S2 normal. Regular rate and rhythm. Lungs: Coarse breath sounds. Abdomen: Positive bowel sounds. Soft, nontender, nondistended. Extremities: No edema. No cyanosis. Neurologic: The patient is lethargic, but he will awaken when his name is called. LABS: White blood cell count 8.8, hemoglobin 9.4, hematocrit 29, platelets 313, 000. Sodium 140, potassium 3.6, chloride 102, CO2 is 26, BUN 20, creatinine 0.9, glucose 82. ASSESSMENT AND PLAN: 1. Pneumonia. Resolved. 2. Dysphagia. Improved. Continue with aspiration precautions. 3. Encephalopathy. Slowly improving. The patient's sedating medications have been reduced. Continue to monitor for improvement. 4. Hypertension. Improved. 5. Seizures. Resolved. 6. Alcohol abuse. Aware. The patient has been counseled about alcohol cessation. 7. Anemia. Stable. 8. Disposition. We are waiting on an LTAC evaluation. Continue with PT. cc: Camille He MD [facility]
[2018-08-01] MEDS: ATROVENT NEB INH SCH ×3 (03:41→11:23)
[2018-08-01] MEDS: XOPENEX NEB INH SCH ×3 (03:41→11:23)
[2018-08-01 05:37] LABS: HEMATOCRIT 29.9 % (42.0-52.0); HEMOGLOBIN 9.4 g/dL (14.0-18.0); MCH 32.5 PG (27-31); MCHC 31.4 g/dL (33-37); MCV 103.5 FL (81-99); MPV 9.4 FL (7.4-10.4); RBC 2.89 XMIL (4.7-6.1); WBC 7.85 X1000 (4.8-10.8)
[2018-08-01 06:02] LABS: ALB/GLOB RATIO 0.8; CREATININE 1.3 mg/dL (0.7-1.2); POTASSIUM 3.8 mmol/L (3.5-5.1); TOTAL BILIRUBIN 0.38 mg/dL (0.20-1.00); TOTAL PROTEIN 6.7 g/dL (6.3-8.3)
[2018-08-01] MEDS: MUCOMYST 20% INH SCH (07:28)
--- NOTE | 2018-08-01 07:48 | Diag Imaging Result Doc PS360 ---
CHEST-1 VIEW - 08/01/2018 INDICATION: SOB COMPARISON: 07/31/2018 FINDINGS: Stable left PICC line in good position. Stable severely low lung volumes. Stable bibasilar atelectasis right greater than left. No new infiltrates. Heart size remains top normal. IMPRESSION: No change from prior. Electronically signed by Cristiano Alston 08/01/2018 7:45 AM
[2018-08-01] MEDS: APRESOLINE PO SCH ×2 (09:37→14:24)
[2018-08-01] MEDS: CENTRUM SILVER PO SCH (09:37)
[2018-08-01] MEDS: VITAMIN B-1 NG SCH (09:38)
[2018-08-01] MEDS: PRINIVIL PO SCH (09:38)
[2018-08-01] MEDS: NORVASC PO SCH (09:38)
[2018-08-01] MEDS: LOVENOX SUBQ SCH (09:38)
[2018-08-01] MEDS: COREG PO SCH (09:38)
[2018-08-01] MEDS: PLAVIX PO SCH (09:38)
[2018-08-01 13:05] VITALS: BP 99/61
--- NOTE | 2018-08-01 14:21 | PROGRESS NOTE ---
DATE: 08/01/2018 SUBJECTIVE: Patient is awake and alert. He is oriented to place today. He is in no acute distress. is with him at the bedside. States he was able to eat some breakfast. He does drink his Ensure. He had some applesauce. She states he does have occasional coughing when eating. They are keeping him upright when eating and afterwards. OBJECTIVE: Vital Signs: Temperature 97.4 degrees, pulse 86, respirations 19, blood pressure 99/61. General: Patient is a more awake and alert today. LABORATORY: Hematology: WBC 7.85, hemoglobin 9.4, hematocrit 29.9, MCV 103.5. Chemistry: Sodium 143, potassium 3.8, chloride 104, CO2 26, BUN 25, creatinine 1.3, glucose 71. ASSESSMENT: 1. Pneumonia. Has finished antibiotics. 2. Dysphagia with aspiration. Patient has been tolerating small amounts of his pureed diet. He does drink Ensure. Continue PPI. Continue antireflux measures and aspiration precautions. 3. Seizures have resolved. 4. Encephalopathy has improved. 5. History of alcohol abuse. PLAN: Continue current medications. Follow antireflux measures and aspiration precautions. Continue PPI. Will continue to follow during his hospital course. Further plans will be made as needed. I have discussed this case with Dr. Kim. Dictated by RENE Luu for Brent Kim MD cc: RENE Keyes MD
--- NOTE | 2018-08-01 14:27 | DISCHARGE SUMMARY ---
ADMISSION DATE: 07/05/2018 DISCHARGE DATE: 08/01/2018 PRINCIPAL DIAGNOSIS: Delirium tremens with alcohol withdrawal seizures, which have now resolved. SECONDARY DIAGNOSES: 1. Hypertension. 2. History of cerebrovascular accident. 3. History of throat cancer with radiation treatment as well as radical neck resection. 4. Hyperlipidemia. 5. Depression. 6. History of forehead melanoma. 7. Hyponatremia. 8. Acute kidney injury, which is now resolved. 9. Dysphagia. 10. Respiratory failure. 11. Hypokalemia. 12. Gastrointestinal bleed. DISCHARGE MEDICATIONS: Include the following: Remeron 7.5 mg at bedtime, Norvasc 5 mg p.o. twice a day, Atrovent nebulizer every four hours, multivitamin one daily, lisinopril 40 mg p.o. daily, metoprolol 50 mg p.o. in the mornings, Celexa 20 mg p.o. daily, simvastatin one p.o. daily, prednisone 20 mg p.o. daily, Plavix 75 mg p.o. daily. CONSULTATIONS DONE DURING THIS HOSPITAL STAY: Include the following: Dr. Frankie Larios, Pulmonology, Dr. Artie Velazco, Pulmonology, Dr. Luis Daniel Stevenson, Infectious Disease , as well as Dr. Brent Kim, Gastroenterology. PROCEDURES DONE DURING THIS HOSPITAL STAY: Include the following: Head CT , chest CT on 07/18/2018, modified barium swallow on 07/20/2018, EEG on 07/24/2018, MRI of the brain on 07/25/2018, speech modified barium swallow on 07/27/2018. HOSPITAL COURSE: Mr. Carlos Argueta is a 73-year-old male who has a history of alcoholism, hypertension, throat cancer, and benign prostatic hypertrophy. The patient was admitted to the hospital because of new onset seizures, which were thought to be secondary to withdrawal from alcohol. The patient was placed on benzodiazepine at the time of presentation and also seizure precautions. The patient was also maintained on delirium tremens prophylaxis. During the course of the hospital stay, he was noted to have aspiration pneumonia and was placed on antibiotics He developed acute hypoxic and hypercapnic respiratory failure and as such required BiPAP. The patient was seen by the Pulmonary team. He was noted to have dysphagia and was fed by means of NG tube. He was seen by the GI team, who felt that patient did not need a PEG feeding tube. At this time, the patient is on aspiration precautions in light of his dysphagia. The GI team also evaluated him for GI bleed Other events during the course of the hospital stay were acute kidney injury, which was managed conservatively. At this time, the patient has reached maximum hospital stay and will be transferred to LTAC to continue recuperation. During my evaluation today his vital signs were as follows: Temperature 97.4, pulse 86, respirations 18, blood pressure 99/61, oxygen saturation 95%. HEENT: He is atraumatic and normocephalic. Cardiovascular system: S1, S2. Respiratory system: No rales or rhonchi noted. Abdomen: Soft. Nontender. No masses felt. Extremities: No evidence of edema. Central Nervous System: no focal deficits noted. LABORATORY DATA: WBC 7.85, hematocrit 29.9, with a platelet count of 280. Sodium is 143, potassium 3.8, chloride is 104, bicarb 26, BUN is 25, creatinine is 1.3. IMAGING: Chest x-ray done on 07/31/2018 shows plate-like opacity in the right base and was described as right middle lobe atelectasis. PLAN: Discharge to LTAC today. Continue PT as well as OT evaluation. Continue medications as outlined above. Follow up with primary care physician in the next two weeks. The patient is to abstain from alcohol and also in light of his dysphagia, he will need to be on aspiration precautions. cc: Abdi Reyes MD [facility]
== END 2018-08-01 15:22 | DRG 896 ==
LOC: SUPCPDRO → ED 08:11 → ICU 12:18 → SUATTDRO 12:18 → 3S 07-26 15:33
PROVIDERS: ATTEND Internal Medicine
CPT/HCPCS: 36569; 70450; 70553; 71010; 71045; 71250; 74000; 74018; 74230; 80048; 80053; 80101; 80301; 80307; 80320; 80324; 80345; 80346; 80353; 80358; 80361; 80365; 81001; 82055; 82140; 82550; 82553; 82607; 82728; 82746; 82784; 82805; 83540; 83550; 83605; 83735; 83880; 83935; 83992; 84100; 84132; 84134; 84145; 84443; 84484; 85025; 85027; 85610; 85730; 87040; 87275; 87276; 87324; 87449; 87804; 92526; 92610; 92611; 93005; 93010; 94640; 94660; 94761; 94799; 95816; 96361; 96365; 96367; 96368; 96375; 97110; 97162; 97165; 97168; 97530; 99285; A9270; A9579; C1751; C9113; G0431; G0434; G0479; G0480; G6040; J0360; J0692; J0696; J1630; J1650; J1940; J1956; J2020; J2060; J2543; J2560; J3370; J3411; J3420; J3475; J3480; J3486; J7030; J7040; J7050; J7070; J7120; J7608; S0164